=== PATIENT | male | born 1950 | race African-American/Black ===

== ENCOUNTER 2018-02-23 14:35 | Inpatient (IN) | payer MEDICARE ==
--- OUTSIDE RECORDS SUMMARY | 2018-02-23 14:36 | XMS REPORT ---
:1950 [facility] Address [address] [place] [address] Care Team Providers Name Role Phone CHRISTIANO DIEUDONNE OMAIRAMIREYA Unavailable Unavailable Problems This patient has no known problems. Allergies, Adverse Reactions, Alerts This patient has no known allergies or adverse reactions. Medications This patient has no known medications. Results Test Description Test Time Test Comments Text Results Atomic Results Result Comments (MANUAL DIFFERENTIAL) 2017-01-05 07:27:00 Test Item Value Reference Range Comments TOTAL COUNTED (BEAKER) (test iekp=1000) CBC W/PLT COUNT & AUTO [id number] 07:10:00 Test Item Value Reference Range Comments WHITE BLOOD CELL COUNT (BEAKER) (test ezmz=168) 9.9 K/ L 4.0-10.0 RED BLOOD CELL COUNT (BEAKER) (test yeqo=398) 4.91 M/ L 4.20-5.80 HEMOGLOBIN (BEAKER) (test thti=420) 16.7 GM/DL 13.0-16.8 HEMATOCRIT (BEAKER) (test kasd=608) 48.2 % 40.0-50.0 MEAN CORPUSCULAR VOLUME (BEAKER) (test wrfh=729) 98.2 fL 82.0-98.0 MEAN CORPUSCULAR HEMOGLOBIN (BEAKER) (test 33.9 pg 27.0-33.0 djqz=896) MEAN CORPUSCULAR HEMOGLOBIN CONC (BEAKER) (test 34.5 GM/DL 32.0-36.0 ozmv=380) RED CELL DISTRIBUTION WIDTH (BEAKER) (test 14.1 % 10.3-14.2 fpsf=787) PLATELET COUNT (BEAKER) (test cmyh=708) 202 K/CU MM 150-430 MEAN PLATELET VOLUME (BEAKER) (test vxox=845) 7.1 fL 6.5-10.5 NUCLEATED RED BLOOD CELLS (BEAKER) (test 0 /100 WBC 0-0 ncuj=972) NEUTROPHILS RELATIVE PERCENT (BEAKER) (test 54 % xvky=579) LYMPHOCYTES RELATIVE PERCENT (BEAKER) (test 34 % rrie=690) MONOCYTES RELATIVE PERCENT (BEAKER) (test 10 % lhca=075) EOSINOPHILS RELATIVE PERCENT (BEAKER) (test 1 % cjus=607) BASOPHILS RELATIVE PERCENT (BEAKER) (test 1 % fglr=194) NEUTROPHILS ABSOLUTE COUNT (BEAKER) (test 5.36 K/ L 1.80-8.00 flar=587) LYMPHOCYTES ABSOLUTE COUNT (BEAKER) (test 3.31 K/ L 1.48-4.50 vqkp=060) MONOCYTES ABSOLUTE COUNT (BEAKER) (test 1.00 K/ L 0.00-1.30 rene=660) EOSINOPHILS ABSOLUTE COUNT (BEAKER) (test 0.12 K/ L 0.00-0.50 ejxg=193) BASOPHILS ABSOLUTE COUNT (BEAKER) (test 0.07 K/ L 0.00-0.20 eocy=039) [id number] [id number] 06:48:00 Test Item Value Reference Range Comments TRIGLYCERIDES (BEAKER) (test uofo=555) 89 mg/dL CHOLESTEROL (BEAKER) (test ktjn=321) 158 mg/dL HDL CHOLESTEROL (BEAKER) (test oeqy=301) 40 mg/dL LDL CHOLESTEROL CALCULATED (BEAKER) (test 100 mg/dL whaj=090) Triglyceride Reference Range: Low Risk <150 Borderline 150- 199 High Risk 200-499 Very High Risk >=500Cholesterol Reference Range: Low Risk <200 Borderline 200-239 High Risk > 240HDL Cholesterol Reference Range: Low Risk >=60 High Risk <40LDL Cholesterol Reference Range: Optimal <100 Near Optimal 100-129 Borderline 130-159 High 160-189 Very High >=190BASIC METABOLIC [id number] 06:48:00 Test Item Value Reference Range Comments SODIUM (BEAKER) (test 137 meq/L 136-145 vkck=212) POTASSIUM (BEAKER) (test 3.8 meq/L 3.5-5.1 irbn=543) CHLORIDE (BEAKER) (test 107 meq/L 98-107 rbtm=598) CO2 (BEAKER) (test 23 meq/L 22-29 nykp=094) BLOOD UREA NITROGEN 21 mg/dL 7-21 (BEAKER) (test awja=040) CREATININE (BEAKER) (test 1.03 mg/dL 0.57-1.25 nzzx=808) GLUCOSE RANDOM (BEAKER) 101 mg/dL 70-105 (test vhcv=271) CALCIUM (BEAKER) (test 8.9 mg/dL 8.4-10.2 srwo=480) EGFR (BEAKER) (test 88 mL/min/1.73 sq m ESTIMATED GFR IS NOT qzyp=1086) ACCURATE CREATININE CLEARANCE IN PREDICTING GLOMERULAR FILTRATION RATE. ESTIMATED GFR IS NOT APPLICABLE FOR DIALYSIS PATIENTS. HEMOGLOBIN [id number] 07:38:00 Test Item Value Reference Range Comments HEMOGLOBIN A1C (BEAKER) (test vvto=824) 5.6 % 4.3-6.1 TSH/FREE T4 IF [id number] 04:58:00 Test Item Value Reference Range Comments THYROID STIMULATING HORMONE (BEAKER) (test 1.28 uIU/mL 0.35-4.94 vnss=255) VITAMIN B12 AND [id number] 04:58:00 Test Item Value Reference Range Comments VITAMIN B12 (BEAKER) (test llma=956) 260 pg/mL 213-816 FOLATE (BEAKER) (test vlpn=683) 13.0 ng/mL >=7.0 Effective 09/12/2014: Folate Reference Range ChangeNew: >=7.0 Previous: & gt;=[id number] 04:08:00 Test Item Value Reference Range Comments MAGNESIUM (BEAKER) (test xlqw=141) 2.0 mg/dL 1.6-2.6 BASIC METABOLIC [id number] 04:08:00 Test Item Value Reference Range Comments SODIUM (BEAKER) (test 140 meq/L 136-145 ilie=510) POTASSIUM (BEAKER) (test 4.0 meq/L 3.5-5.1 mfwe=843) CHLORIDE (BEAKER) (test 107 meq/L 98-107 hrxe=555) CO2 (BEAKER) (test 22 meq/L 22-29 wndd=547) BLOOD UREA NITROGEN 12 mg/dL 7-21 (BEAKER) (test hbno=436) CREATININE (BEAKER) (test 0.92 mg/dL 0.57-1.25 krzz=928) GLUCOSE RANDOM (BEAKER) 96 mg/dL 70-105 (test mdqt=631) CALCIUM (BEAKER) (test 9.4 mg/dL 8.4-10.2 vkjo=669) EGFR (BEAKER) (test 100 mL/min/1.73 sq m ESTIMATED GFR IS NOT iowv=9986) ACCURATE CREATININE CLEARANCE IN PREDICTING GLOMERULAR FILTRATION RATE. ESTIMATED GFR IS NOT APPLICABLE FOR DIALYSIS PATIENTS. CREATINE KINASE (CK), TOTAL AND [id number] 04:08:00 Test Item Value Reference Range Comments CREATINE KINASE TOTAL (BEAKER) (test ljls=631) 85 U/L 29-200 CREATINE KINASE-MB (BEAKER) (test nrpt=822) 0.6 ng/mL 0.0-6.6 CREATINE KINASE-MB INDEX (BEAKER) (test oqkw=500) 0.7 % Effective 09/12/2014: CK-MB Reference Range ChangeNew: 0.0-6.6 Previous: 0.0- 4.9CK-MB Reference Range:<6.7 Normal6.7-10.0 Borderline>10.0 AbnormalTROPONIN [id number] 04:07:00 Test Item Value Reference Range Comments TROPONIN I (BEAKER) (test sfmw=522) < ng/mL 0.00-0.03 Effective 09/12/2014: Reference Range ChangeNew: 0.00-0.03 Previous 0.00- 0.15Troponin I (TnI) levels must be interpreted in the context of the presenting symptoms and the clinical findings. Elevated TnI levels indicate myocardial damage, but are not specific for ischemic heart disease. Elevated TnI levels are seen in patients with other cardiac conditions (including myocarditis and congestive heartfailure), and slight TnI elevations occur in patients with other conditions, including sepsis, renalfailure, acidosis, acute neurological disease, and persistent tachyarrhythmia.PROTHROMBIN [id number] 03:45:00 Test Item Value Reference Range Comments PROTIME (BEAKER) (test ewce=442) 12.6 seconds 11.7-14.7 INR (BEAKER) (test dowp=128) 1.0 <=5.9 RECOMMENDED COUMADIN/WARFARIN INR THERAPY RANGESSTANDARD DOSE: 2.0 - 3.0 Includes: PROPHYLAXIS forvenous thrombosis, systemic embolization; TREATMENT for venous thrombosis and/or pulmonary embolus.HIGH RISK: Target INR is 2.5-3.5 for patients with mechanical heart valves.CBC W/PLT COUNT & AUTO [id number] 03:42:00 Test Item Value Reference Range Comments WHITE BLOOD CELL COUNT (BEAKER) (test gfrj=190) 9.6 K/ L 4.0-10.0 RED BLOOD CELL COUNT (BEAKER) (test bmzt=744) 4.92 M/ L 4.20-5.80 HEMOGLOBIN (BEAKER) (test vgzd=957) 16.9 GM/DL 13.0-16.8 HEMATOCRIT (BEAKER) (test nteg=454) 48.5 % 40.0-50.0 MEAN CORPUSCULAR VOLUME (BEAKER) (test dyfe=425) 98.6 fL 82.0-98.0 MEAN CORPUSCULAR HEMOGLOBIN (BEAKER) (test 34.3 pg 27.0-33.0 vlha=810) MEAN CORPUSCULAR HEMOGLOBIN CONC (BEAKER) (test 34.8 GM/DL 32.0-36.0 tfka=685) RED CELL DISTRIBUTION WIDTH (BEAKER) (test 12.8 % 10.3-14.2 lvuy=635) PLATELET COUNT (BEAKER) (test sfhd=834) 200 K/CU MM 150-430 MEAN PLATELET VOLUME (BEAKER) (test xfsn=687) 7.0 fL 6.5-10.5 NUCLEATED RED BLOOD CELLS (BEAKER) (test 0 /100 WBC 0-0 jqmh=050) NEUTROPHILS RELATIVE PERCENT (BEAKER) (test 60 % yixd=850) LYMPHOCYTES RELATIVE PERCENT (BEAKER) (test 30 % rdan=022) MONOCYTES RELATIVE PERCENT (BEAKER) (test 8 % tpfz=104) EOSINOPHILS RELATIVE PERCENT (BEAKER) (test 1 % ykbo=781) BASOPHILS RELATIVE PERCENT (BEAKER) (test 1 % sink=866) NEUTROPHILS ABSOLUTE COUNT (BEAKER) (test 5.69 K/ L 1.80-8.00 prvu=123) LYMPHOCYTES ABSOLUTE COUNT (BEAKER) (test 2.91 K/ L 1.48-4.50 dnms=425) MONOCYTES ABSOLUTE COUNT (BEAKER) (test 0.81 K/ L 0.00-1.30 vzve=648) EOSINOPHILS ABSOLUTE COUNT (BEAKER) (test 0.10 K/ L 0.00-0.50 egsw=085) BASOPHILS ABSOLUTE COUNT (BEAKER) (test 0.06 K/ L 0.00-0.20 qnyn=723) 0.00
--- OUTSIDE RECORDS SUMMARY | 2018-02-23 14:36 | XMS REPORT | Clinical Summary ---
:1950 Author Organization [facility] Address [address] [place] [address] Phone Care Team Providers Name Role Phone Unavailable Primary Care Provider Unavailable Allergies No Known Allergies Current Medications Prescription Sig. Disp. Refills Start Date End Date Status lisinopril Take 5 mg by Active (PRINIVIL,ZESTRIL) 5 mouth daily. MG tablet cloNIDine HCl Take 0.2 mg by Active (CATAPRES) 0.2 MG mouth 3 (three) tablet times daily. aspirin 81 MG chewable Take 1 tablet 30 tablet 11 01/05/2017 01/05/2018 tablet (81 mg total) by mouth daily. atorvastatin (LIPITOR) Take 1 tablet 30 tablet 11 01/05/2017 01/05/2018 40 MG tablet (40 mg total) by mouth nightly. 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
--- NOTE | 2018-02-23 15:44 | RAD REPORT ---
EXAM DESCRIPTION: RAD - Chest Single View - 02/23/2018 3:24 pm CLINICAL HISTORY: Chest pain. COMPARISON: 05/20/2017 FINDINGS: Portable technique limits examination quality. Airspace opacity in the right lower lobe is present compatible with pneumonia. A small right pleural effusion is seen. The heart is normal in size. No displaced fractures.
--- NOTE | 2018-02-23 16:04 | RAD REPORT ---
EXAM DESCRIPTION: CT - Head C Spine Cap Wo Con - 02/23/2018 3:48 pm CLINICAL HISTORY: Trauma, head and neck injury. Chest, abdomen and pelvis pain. COMPARISON: 05/20/2017 TECHNIQUE: CT head without contrast. CT cervical spine without contrast with coronal and sagittal reformatted images. CT chest, abdomen and pelvis without contrast with coronal and sagittal reformatted images of the [facility] ne. All CT scans are performed using dose optimization technique as appropriate and may include automated exposure control or mA/KV adjustment according to patient size. FINDINGS: CT HEAD WITHOUT CONTRAST: No intracranial hemorrhage, hydrocephalus or extra-axial fluid collection. Gliosis is seen in the le ft posterior cerebral artery territory compatible with subacute to chronic. Old 9 mm lacunar infarct also noted on the right. The paranasal sinuses and mastoids are clear. The calvarium is intact. CT CERVICAL SPINE WITHOUT CONTRAST: No fracture or subluxation. Moderate midcervical degenerative changes. The prevertebral soft tissues are normal in thickness. CT CHEST, ABDOMEN, PELVIS WITHOUT CONTRAST: NOTE: Lack of contrast is a significant limitation in the assessment of trauma related findings. Spec ifically, solid organ, vascular and bowel evaluation is significantly limited. Airspace opacification in the right lower lobe is present with a small right pleural effusion, likely representing pneumonia. Moderate COPD is present.No pneumothorax is seen. No evidence of intra-abdominal visceral injury, free fluid or free air is seen within the above detai led limitations. Cholelithiasis. No concerning pelvic findings. No fractures. IMPRESSION: Right lower lobe pneumonia suspected. Subacute to chronic left [employer] F[employer]OR[employer] territory infarct. Moderate midcervical degenerative change.
[2018-02-23] MEDS ORDERED: NA CHLORIDE 0.9% 1,000 ML ONE (16:16)
[2018-02-23] MEDS ORDERED: CEFTRIAXONE/SWI 1gm 1 GM/10 ML SYR ONE (16:16)
[2018-02-23] MEDS ORDERED: Levofloxacin500mg IV 500 MG/100 ML BAG IV ONE (16:16)
[2018-02-23] MEDS ORDERED: NA CHLORIDE 0.9% 500 ML ONE (16:16)
[2018-02-23 16:25] LABS: Absolute Lymphocytes (CBC) 1.4 K/uL (0.7-4.9); Absolute Monocytes 1.8 K/uL (0.1-1.3); Absolute Neutrophil 13.1 K/uL (1.8-8.0); Basophils % 0.5 % (0-1.3); Hematocrit 51.1 % (39.6-49.0); Lymphocytes % 8.4 % (15.3-44.8); MCH 32.8 pg (27.0-35.0); MPV 8.5 fL (7.6-11.3); Monocytes % 10.9 % (3.3-12.3); RBC Red Blood Cell Count 5.27 M/uL (4.33-5.43)
--- NOTE | 2018-02-23 16:28 | EDPHYS ---
Physician Documentation [facility] Name: Srinivas Foy Age: 67 yrs Sex: Male : 1950 Arrival Date: 02/23/2018 Time: 14:36 Bed 13 Private MD: Linden Landis H ED Physician Damir Rick HPI: 02/23 15:12 This 67 yrs old Black Male presents to ER via Wheelchair with complaints of Vision cali Problem. 15:12 This 67 yrs old Black Male presents to ER via Wheelchair with complaints of Vision cali Problem. 15:12 The patient presents with abdominal pain in the epigastric area, in the upper abdomen, cali in the lower abdomen. Onset: The symptoms/episode began/occurred 3 day(s) ago. alert and oriented x 2. The patient presents with disorientation, to time. Onset: The symptoms/episode began/occurred at an unknown time. Possible causes: unknown. Associated signs and symptoms: The patient has no apparent associated signs or symptoms. Associated signs and symptoms: none. Historical: - Allergies: 14:58 NKA; ch - Home Meds: 14:58 unknown [Active]; ch 15:08 clonidine HCl 0.2 mg Oral tab 1 tab Q8H [Active]; gabapentin 300 mg Oral cap 1 cap rb1 twice a day [Active]; lisinopril 10 mg oral tab 1 tab once daily [Active]; Shanti Aspirin oral 81 mg oral 1 tab once daily [Active]; simvastatin 40 mg Oral tab 1 tab once daily [Active]; - PMHx: 14:58 CVA; Hypertension; unable to verify; ch - PSHx: 14:58 Unable to obtain; ch - Immunization history:: Adult Immunizations unknown. - Social history:: Smoking status: Patient uses tobacco products, smokes one pack cigarettes per day. - Family history:: not pertinent. ROS: 15:12 Constitutional: Negative for fever, chills, and weight loss, Eyes: Negative for injury, cali pain, redness, and discharge, ENT: Negative for injury, pain, and discharge, Neck: Negative for injury, pain, and swelling, Cardiovascular: Negative for chest pain, palpitations, and edema, Respiratory: Negative for shortness of breath, cough, wheezing, and pleuritic chest pain, Back: Negative for injury and pain, : Negative for injury, bleeding, discharge, and swelling, MS/Extremity: Negative for injury and deformity, Skin: Negative for injury, rash, and discoloration, Psych: Negative for depression, anxiety, suicide ideation, homicidal ideation, and hallucinations, Allergy/Immunology: Negative for hives, rash, and allergies, Endocrine: Negative for neck swelling, polydipsia, polyuria, polyphagia, and marked weight changes, Hematologic/Lymphatic: Negative for swollen nodes, abnormal bleeding, and unusual bruising. 15:12 Abdomen/GI: Positive for abdominal pain, of the right upper quadrant, left upper quadrant, right lower quadrant and left lower quadrant. Exam: 15:12 Constitutional: This is a well developed, well nourished patient who is awake, alert, cali and in no acute distress. Head/Face: Normocephalic, atraumatic. Eyes: Pupils equal round and reactive to light, extra-ocular motions intact. Lids and lashes normal. Conjunctiva and sclera are non-icteric and not injected. Cornea within normal limits. Periorbital areas with no swelling, redness, or edema. ENT: Nares patent. No nasal discharge, no septal abnormalities noted. Tympanic membranes are normal and external auditory canals are clear. Oropharynx with no redness, swelling, or masses, exudates, or evidence of obstruction, uvula midline. Mucous membranes moist. Neck: Trachea midline, no thyromegaly or masses palpated, and no cervical lymphadenopathy. Supple, full range of motion without nuchal rigidity, or vertebral point tenderness. No Meningismus. Chest/axilla: Normal chest wall appearance and motion. Nontender with no deformity. No lesions are appreciated. Cardiovascular: Regular rate and rhythm with a normal S1 and S2. No gallops, murmurs, or rubs. Normal PMI, no JVD. No pulse deficits. Respiratory: Lungs have equal breath sounds bilaterally, clear to auscultation and percussion. No rales, rhonchi or wheezes noted. No increased work of breathing, no retractions or nasal flaring. Back: No spinal tenderness. No costovertebral tenderness. Full range of motion. Skin: Warm, dry with normal turgor. Normal color with no rashes, no lesions, and no evidence of cellulitis. MS/ Extremity: Pulses equal, no cyanosis. Neurovascular intact. Full, normal range of motion. Psych: Awake, alert, with orientation to person, place and time. Behavior, mood, and affect are within normal limits. 15:12 Abdomen/GI: Inspection: abdomen appears normal, Bowel sounds: normal, Palpation: mild abdominal tenderness, moderate abdominal tenderness, in the right upper quadrant, left upper quadrant, right lower quadrant and left lower quadrant, Liver: no appreciated palpable abnormalities, Hernia: not appreciated. Vital Signs: 14:58 BP 146 / 78; Pulse 112; Resp 18; Temp 98.4(O); Pulse Ox 94% on R/A; Weight 77.11 kg; ch Height 5 ft. 7 in. (170.18 cm); Pain 0/10; 16:24 BP 182 / 98; Pulse 100; Resp 28; Pulse Ox 93% on R/A; mh5 17:37 BP 169 / 97; Pulse 104; Resp 29; Pulse Ox 100% on R/A; mh5 19:45 BP 179 / 97; Pulse 93; Resp 19; Pulse Ox 100% on 3 lpm NC; bs1 20:42 BP 168 / 72 (man/); Pulse 95; Resp 19; Temp 98.5(O); Pulse Ox 99% on 3 lpm NC; bs1 14:58 Body Mass Index 26.63 (77.11 kg, 170.18 cm) ch MDM: 14:59 Patient medically screened. [facility] 15:15 Data reviewed: vital signs, nurses notes, lab test result(s), EKG, radiologic studies, [facility] CT scan, plain films. 02/23 15:12 Order name: Basic Metabolic Panel; Complete Time: 17:36 [facility] 02/23 15:12 Order name: BNP; Complete Time: 17:36 [facility] 02/23 15:12 Order name: CBC with Diff; Complete Time: 17:04 [facility] 02/23 15:12 Order name: Ckmb; Complete Time: 17:36 [facility] 02/23 15:12 Order name: CPK; Complete Time: 17:36 [facility] 02/23 15:12 Order name: LFT's; Complete Time: 17:36 [facility] 02/23 15:12 Order name: Magnesium; Complete Time: 17:36 [facility] 02/23 15:12 Order name: PT-INR; Complete Time: 17:23 [facility] 02/23 15:12 Order name: Ptt, Activated; Complete Time: 17:23 [facility] 02/23 15:12 Order name: Troponin (emerg Dept Use Only); Complete Time: 17:36 [facility] 02/23 15:12 Order name: Lipase; Complete Time: 17:36 [facility] 02/23 15:12 Order name: Urine Culture [facility] 02/23 16:13 Order name: Blood Culture Adult (2) [facility] 02/23 16:34 Order name: CBC Smear Scan; Complete Time: 17:04 [facility] 02/23 15:12 Order name: XRAY Chest (1 view); Complete Time: 16:12 [facility] 02/23 15:12 Order name: EKG; Complete Time: 15:13 [facility] 02/23 15:12 Order name: Cardiac monitoring; Complete Time: 16:13 [facility] 02/23 15:12 Order name: EKG - Nurse/Tech; Complete Time: 15:26 [facility] 02/23 15:12 Order name: IV Saline Lock; Complete Time: 16:13 [facility] 02/23 15:12 Order name: Labs collected and sent; Complete Time: 16:13 [facility] 02/23 15:12 Order name: O2 Per Protocol; Complete Time: 16:13 [facility] 02/23 15:12 Order name: CT Traumagram (Head C Spine CAP wo con); Complete Time: 16:12 [facility] 02/23 16:34 Order name: CONS Physician Consult [facility] 02/23 17:13 Order name: Urine Dipstick--Ancillary (enter results) 02/23 17:52 Order name: Urine Dipstick-Ancillary; Complete Time: 18:02 [facility] 02/23 15:12 Order name: O2 Sat Monitoring; Complete Time: 16:13 [facility] 02/23 15:12 Order name: Urine Dipstick-Ancillary (obtain specimen); Complete Time: 19:37 [facility] Administered Medications: 16:15 Drug: NS 0.9% 500 ml Route: IV; Rate: bolus; Site: left antecubital; rb1 17:42 Follow up: IV Status: Completed infusion rb1 16:15 Drug: Rocephin - (cefTRIAXone) 1 grams Route: IVPB; Infused Over: 30 mins; Site: left rb1 antecubital; 16:29 Follow up: Response: No adverse reaction; IV Status: Completed infusion rb1 17:20 Drug: levofloxacin 500 mg Volume: 100 ml; Route: IVPB; Infused Over: 60 mins; Site: rb1 left antecubital; 18:27 Follow up: Response: No adverse reaction; IV Status: Completed infusion rb1 17:42 Drug: NS 0.9% 1000 ml Route: IV; Rate: 125 ml/hr; Site: left antecubital; rb1 20:48 Follow up: IV Status: Infusion continued upon admission bs1 18:28 Drug: Potassium Chloride 20 mEq Route: IV; Rate: per protocol; Site: left antecubital; rb1 20:48 Follow up: IV Status: Infusion continued upon admission bs1 Disposition: 02/23/18 16:27 Hospitalization ordered by Augustin Chavez for Inpatient Admission. Preliminary diagnosis are Pneumonia due to other specified bacteria, Dementia in other diseases classified elsewhere, Hypoxemia, Elevated white blood cell count, Essential (primary) hypertension, Hypokalemia, Cystitis. - Bed requested for Telemetry/MedSurg (Inpatient). - Status is Inpatient Admission. bs1 - Condition is Stable. - Problem is new. - Symptoms have improved. UTI on Admission? Yes Signatures: Dispatcher [employer] EDTawana Olson, RN RN Carmen Gomes RN RN dw Anderson, Corey, MD MD cha Barber, Rebecca, YARITZA RN rb1 Niesha Laura RN RN bs1
--- NOTE | 2018-02-23 16:28 | ER ---
Nurse's Notes [facility] Name: Srinivas Foy Age: 67 yrs Sex: Male : 1950 Arrival Date: 02/23/2018 Time: 14:36 Bed 13 Private MD: Linden Landis H Diagnosis: Pneumonia due to other specified bacteria;Dementia in other diseases classified elsewhere;Hypoxemia;Elevated white blood cell count;Essential (primary) hypertension;Hypokalemia;Cystitis Presentation: 02/23 14:53 Presenting complaint: Patient states: I know something is wrong with me, I just don't ch know what. My home health nurse told me to come. I cannot see out of my L eye since I had a stroke two or three or four weeks ago. when I take a deep breath my chest hurts. pt is oriented to person and place only. Transition of care: patient was not received from another setting of care. Onset of symptoms is unknown. Initial Sepsis Screen: Does the patient meet any 2 criteria? Altered Mental Status. HR > 90 bpm. Does the patient have a suspected source of infection? No. Patient's initial sepsis screen is negative. Care prior to arrival: None. 14:53 Method Of Arrival: Wheelchair 14:53 Acuity: RULA 2 18:37 Note pt states he thinks it is 2006. pt was witnessed by volunteer and hotel front desk agent staff ch walking in by himself. pt states his family member dropped him off. pt does not know the name of the family member. no family was witnessed at registration or by me. pt states he does not know why he is here. pt states he thinks he came from home. Triage Assessment: 14:58 General: Appears in no apparent distress. comfortable, Behavior is cooperative, ch appropriate for age. Neuro: Level of Consciousness is awake, alert, obeys commands, confused, Oriented to person, place, Marble Cleaner are equal bilaterally Moves all extremities. Weakness. Historical: - Allergies: 14:58 NKA; ch - Home Meds: 14:58 unknown [Active]; ch 15:08 clonidine HCl 0.2 mg Oral tab 1 tab Q8H [Active]; gabapentin 300 mg Oral cap 1 cap rb1 twice a day [Active]; lisinopril 10 mg oral tab 1 tab once daily [Active]; Shanti Aspirin oral 81 mg oral 1 tab once daily [Active]; simvastatin 40 mg Oral tab 1 tab once daily [Active]; - PMHx: 14:58 CVA; Hypertension; unable to verify; ch - PSHx: 14:58 Unable to obtain; ch - Immunization history:: Adult Immunizations unknown. - Social history:: Smoking status: Patient uses tobacco products, smokes one pack cigarettes per day. - Family history:: not pertinent. Screenin:08 Abuse screen: Denies threats or abuse. Nutritional screening: No deficits noted. rb1 Tuberculosis screening: No symptoms or risk factors identified. Fall Risk None identified. Assessment: 15:08 General: Appears in no apparent distress. comfortable, Behavior is calm, cooperative, rb1 Denies fever. Pain: Complains of pain in left upper quadrant Pain currently is 5 out of 10 on a pain scale. Pain began 2-3 days ago. Neuro: Level of Consciousness is awake, obeys commands, confused, pt. thinks it is 2007. Is able to tell me his name and date of and where he is.. Cardiovascular: Capillary refill < 3 seconds is brisk in bilateral fingers. Respiratory: Airway is patent Respiratory effort is even, unlabored, Respiratory pattern is regular, symmetrical. GI: No signs and/or symptoms were reported involving the gastrointestinal system. : No signs and/or symptoms were reported regarding the genitourinary system. Derm: Skin is dry, Skin is normal, Skin temperature is warm. Musculoskeletal: Range of motion: intact in all extremities. 16:15 Reassessment: Patient appears in no apparent distress at this time. No changes from rb1 previously documented assessment. Rocephin was administered prior to blood cultures being drawn. 16:40 Reassessment: Pt. O2 sat was 94% on RA, administered O2 2 L NC, O2 sat went up to 98%. rb1 16:47 Reassessment: YARITZA Morales called to have lab come to draw the blood cultures. rb1 17:00 Reassessment: Patient and/or family updated on plan of care and expected duration. Pain rb1 level reassessed. Patient is alert, oriented x 3, equal unlabored respirations, skin warm/dry/pink. 18:00 Reassessment: Patient appears in no apparent distress at this time. No changes from rb1 previously documented assessment. pt. does not want to be admitted. provider notified. 19:15 Reassessment: Report received from YARITZA Márquez, patient confused. Alert to self. No bs1 distress noted at this time. 19:15 Neuro: Level of Consciousness is awake, confused. Cardiovascular: Denies chest pain, bs1 shortness of breath, syncope, Capillary refill < 3 seconds. Respiratory: Airway is patent. GI: No signs and/or symptoms were reported involving the gastrointestinal system. Derm: Skin is dry. Musculoskeletal: Range of motion: intact in all extremities. Vital Signs: 14:58 BP 146 / 78; Pulse 112; Resp 18; Temp 98.4(O); Pulse Ox 94% on R/A; Weight 77.11 kg; ch Height 5 ft. 7 in. (170.18 cm); Pain 0/10; 16:24 BP 182 / 98; Pulse 100; Resp 28; Pulse Ox 93% on R/A; mh5 17:37 BP 169 / 97; Pulse 104; Resp 29; Pulse Ox 100% on R/A; mh5 19:45 BP 179 / 97; Pulse 93; Resp 19; Pulse Ox 100% on 3 lpm NC; bs1 20:42 BP 168 / 72 (man/); Pulse 95; Resp 19; Temp 98.5(O); Pulse Ox 99% on 3 lpm NC; bs1 14:58 Body Mass Index 26.63 (77.11 kg, 170.18 cm) ED Course: 14:36 Patient arrived in ED. mr 14:37 Linden Landis DO is Private Physician. mr 14:57 Triage completed. 14:58 Arm band placed on left wrist. Patient placed in an exam room. 14:59 Damir Rick MD is Attending Physician. [facility] 15:08 Patient has correct armband on for positive identification. Bed in low position. Call rb1 light in reach. Side rails up X2. leather parts matcher on. Pulse ox on. NIBP on. Warm blanket given. 15:22 X-ray completed. Portable x-ray completed in exam room. Patient tolerated procedure kc2 well. 15:23 XRAY Chest (1 view) In Process Unspecified. EDMS 15:26 Yulisa August, RN is Primary Nurse. rb1 15:29 EKG done, by medical imaging technician. reviewed by Damir Rick MD. dt2 15:[address] via stretcher. nj 15:43 CT completed. Patient tolerated procedure well. Patient moved back from CT. nj 15:48 CT Traumagram (Head C Spine CAP wo con) In Process Unspecified. EDMS 16:00 Inserted saline lock: 22 gauge in left antecubital area, using aseptic technique. Blood rb1 collected. 16:25 Augustin Chavez DO is Hospitalizing Provider. [facility] 19:00 Report given to YARITZA Scherer. rb1 20:40 No provider procedures requiring assistance completed. Patient admitted, IV remains in bs1 place. intact. Administered Medications: 16:15 Drug: NS 0.9% 500 ml Route: IV; Rate: bolus; Site: left antecubital; rb1 17:42 Follow up: IV Status: Completed infusion rb1 16:15 Drug: Rocephin - (cefTRIAXone) 1 grams Route: IVPB; Infused Over: 30 mins; Site: left rb1 antecubital; 16:29 Follow up: Response: No adverse reaction; IV Status: Completed infusion rb1 17:20 Drug: levofloxacin 500 mg Volume: 100 ml; Route: IVPB; Infused Over: 60 mins; Site: rb1 left antecubital; 18:27 Follow up: Response: No adverse reaction; IV Status: Completed infusion rb1 17:42 Drug: NS 0.9% 1000 ml Route: IV; Rate: 125 ml/hr; Site: left antecubital; rb1 20:48 Follow up: IV Status: Infusion continued upon admission bs1 18:28 Drug: Potassium Chloride 20 mEq Route: IV; Rate: per protocol; Site: left antecubital; rb1 20:48 Follow up: IV Status: Infusion continued upon admission bs1 Outcome: 16:27 Decision to Hospitalize by Provider. [facility] 20:40 Admitted to Tele accompanied by tech, via stretcher, room 425, with oxygen, with chart, bs1 Report called to YARITZA Romero 20:40 Condition: stable 20:40 Instructed on the need for admit, Demonstrated understanding of instructions. 20:45 Patient left the ED. bs1 Signatures: Dispatcher [employer] EDMS Tawana Hameed RN RN ch Anderson, Corey, MD MD cha Rivera, Maria mr Barber, Rebecca, YARITZA RN Jovita Mercer Nathan nj Martinez, Maria Niesha Mayo RN RN bs1 Opal Harkins2 Corrections: (The following items were deleted from the chart) 16:48 16:15 Reassessment: Rocephin was administered prior to blood cultures being drawn. rb1 rb1 17:30 16:15 Rocephin - (cefTRIAXone) 1 grams IVPB in left antecubital over 30 mins rb1 rb1 17:30 17:29 Response: No adverse reaction; IV Status: Completed infusion rb1 rb1
[2018-02-23 17:03] LABS: Blood Morphology Comment NOT SEEN (NOT SEEN); Platelet Estimate ADEQ; Urine White Blood Cell Casts OK
[2018-02-23 17:17] LABS: Protime INR 1.05
[2018-02-23 17:25] LABS: Bicarbonate 24 mEq/L (21-31); Glucose Level 89 mg/dL (65-120); Lipase 21 U/L (22-51); Potassium 3.5 mEq/L (3.6-5.0); Sodium Level 132 mEq/L (135-145)
[2018-02-23 17:31] LABS: ALT/SGPT 17 IU/L (10-60); AST/SGOT 34 IU/L (10-42); Albumin 3.9 g/dL (3.2-5.5); Alkaline Phosphatase 48 IU/L (42-121); BUN Blood Urea Nitrogen 21 mg/dL (6-20); Bilirubin Direct 0.5 mg/dL (0-0.2); Bilirubin Total 1.4 mg/dL (0.3-1.2); Creatine Phosphokinase 321 IU/L (22-269); Magnesium 2.1 mg/dL (1.8-2.5); Protein, Total 8.6 g/dL (6.0-8.3)
[2018-02-23 17:33] LABS: CKMB Creatine Kinase MB 1.8 ng/ml (0.3-4.0)
[2018-02-23 17:52] LABS: Urine Blood NEGATIVE (NEG); Urine Glucose NEGATIVE (NEG); Urine Protein 2+ (NEG); Urine Specific Gravity 1.025 (1.005-1.030); Urine pH 5.5 (5.0-7.0)
[2018-02-23] MEDS ORDERED: KCL 20 MEQ/100 mL IVPB 20 MEQ/100 ML BAG IV ONE (18:35)
--- NOTE | 2018-02-23 18:41 | P.HP ---
Certification for Inpatient With expected LOS: >2 Midnights Patient will require the following post-hospital care: None Practitioner: I am a practitioner with admitting privileges, knowledge of patient current condition, hospital course, and medical plan of care. Services: Services provided to patient in accordance with Admission requirements found in Title 42 Section 412.3 of the Code of Federal Regulations Patient History Date of Service: 02/23/18 Reason for admission: "i dont feel right" History of Present Illness: 67 year old male with history of hypertension, CVA in the past who presented with complaint of not feeling right.Per patient he has been was at his usual state of health until this am when he woke up feeling very weak and felt unwell.He asked his friend to bring him to the hospital to be seen.He denies any fever, cough, chest pain, SOB or palpitation.No URI symptoms. on arrival he had CXR done which was suggestive of pneumonia Allergies No Known Allergies Allergy (Unverified 01/03/17 20:33) Home Medications: Aspirin [Durlaza] 162.5 mg PO DAILY #30 cap.er.24h 05/06/17 Lisinopril 10 mg PO DAILY 05/06/17 Simvastatin 1 tab PO BEDTIME 05/06/17 - Past Medical/Surgical History Diabetic: No -: Stroke-2016 -: Hypertension - Family History Father -: Other (see notes) Notes: of old age Mother -: Hypertension - Social History Alcohol use: No CD- Drugs: No Caffeine use: Yes Review of Systems 10-point ROS is otherwise unremarkable General: Weakness Eyes: Unremarkable ENT: Unremarkable Respiratory: Unremarkable Cardiovascular: Unremarkable Gastrointestinal: Vomiting, Abdominal Pain, Distention, Unremarkable Genitourinary: Unremarkable Musculoskeletal: Unremarkable Neurological: Weakness Physical Examination - Physical Exam General: Alert, In no apparent distress, Oriented x3 HEENT: Atraumatic, Normocephalic Respiratory: Clear to auscultation bilaterally, Normal air movement Cardiovascular: No edema, Normal pulses, Regular rate/rhythm, Normal S1 S2 Gastrointestinal: Normal bowel sounds, Soft and benign, W/out hepatosplenomegaly , No ascites, No tenderness, No masses, No rebound, No guarding Musculoskeletal: No swelling, No contractures, No erythema, No warmth Neurological: Normal speech, Normal strength at 5/5 x4 extr, Normal tone, Sensation intact - Studies Laboratory Data (last 24 hrs) 02/23/18 16:00: WBC 16.3 H, Hgb 17.3, Hct 51.1 H, Plt Count 245 Assessment and Plan - Problems (Diagnosis) (1) Community acquired pneumonia Current Visit: Yes Status: Acute Plan: patient with weakness, leukocytosis and chest xray suggestive of pneumonia' cultures sent\\ start ceftrriaxone and azithromycin supportive care (2) Essential hypertension Current Visit: No Status: Chronic Plan: restart home medications Discharge Plan: Home Plan to discharge in: Greater than 2 days - Advance Directives Does patient have a Living Will: No Does patient have a Durable POA for Healthcare: No - Code Status/Comfort Care Code Status Assessed: Yes Code Status: Full Code Physician Review: Patient Assessed, Agree with Above Assessment and Plan Time Spent Managing Pts Care (In Minutes): 50
--- NOTE | 2018-02-23 22:36 | EKG ---
Test Date: 2018-02-23 Test Time: 15:03:50 Outside Production Inspector: BISHNU MEASUREMENT RESULTS: Intervals: Rate: 104 CT: 122 QRSD: 80 QT: 340 QTc: 447 [place]: P: 63 CT: 122 QRS: 29 T: 47 INTERPRETIVE STATEMENTS: Sinus tachycardia Cannot rule out Anterior infarct, age undetermined Abnormal ECG Compared to ECG 05/20/2017 12:13:17 Myocardial infarct finding now present Sinus rhythm no longer present ST (T wave) deviation no longer present Electronically Signed On 02-23-18 22:36:00 CDT by Haseeb Dougals
[2018-02-24] MEDS ORDERED: ACETAMINOPHEN 500 MG TAB PO PRN (00:48)
[2018-02-24] MEDS ORDERED: MAGNESIUM HYDROXIDE 8% 30 ML PO PRN (00:48)
[2018-02-24] MEDS ORDERED: ONDANSETRON 4 MG/2 ML VIAL IV PRN (00:48)
[2018-02-24] MEDS: HYDRALAZINE HCL 20 MG/ML VIAL IV PRN ×3 (01:26→20:51)
[2018-02-24] MEDS ORDERED: CEFTRIAXONE 1 GM/NS 50 ML 1 GM/50 ML BAG IV SCH (04:00)
[2018-02-24] MEDS ORDERED: CEFTRIAXONE/SWI 1gm 1 GM/10 ML SYR ONE (05:40)
[2018-02-24 06:31] LABS: Absolute Lymphocytes (CBC) 1.5 K/uL (0.7-4.9); Absolute Monocytes 1.4 K/uL (0.1-1.3); Basophils % 0.4 % (0-1.3); Eosinophils % 0.2 % (0-4.4); Hematocrit 46.2 % (39.6-49.0); Lymphocytes % 11.4 % (15.3-44.8); MCV 96.6 fL (80-100); MPV 8.3 fL (7.6-11.3); Monocytes % 10.5 % (3.3-12.3); RBC Red Blood Cell Count 4.79 M/uL (4.33-5.43)
[2018-02-24 07:35] LABS: BUN Blood Urea Nitrogen 16 mg/dL (6-20); Bicarbonate 23 mEq/L (21-31); Glucose Level 105 mg/dL (65-120); HDL Cholesterol 37 mg/dL (27-67); LDL Cholesterol, Calculated 116 (<130); Potassium 3.6 mEq/L (3.6-5.0); Sodium Level 135 mEq/L (135-145); Thyroid Stimulating Hormone 1.44 uIU/mL (0.34-5.60)
[2018-02-24] MEDS ORDERED: PNEUMOCOCCAL VACCINE 0.5 ML IMVAC ONE (08:00)
[2018-02-24] MEDS ORDERED: AZITHROMYCIN IV 500 MG in NA CHLORIDE 0.9% 250 ML IVPB SCH (09:00)
[2018-02-24] MEDS: ENOXAPARIN 40 MG/0.4 ML SQ SCH (10:00)
[2018-02-24] MEDS: PANTOPRAZOLE 40MG TABLET PO SCH (15:38)
[2018-02-24] MEDS ORDERED: GUAIFENESIN/CODEINE 5ML UCUP PO PRN (15:54)
--- NOTE | 2018-02-24 17:32 | P.PN ---
Subjective Date of Service: 02/24/18 Chief Complaint: "i dont feel right" Subjective: Other (complaiing of dysphagia) Review of Systems 10-point ROS is otherwise unremarkable Physical Examination - Vital Signs Temperature: 99.2 F Blood Pressure: 152/86 Pulse: 106 Respirations: 16 Pulse Ox (%): 93 - Physical Exam General: Alert, In no apparent distress, Oriented x3 HEENT: Atraumatic, Normocephalic, PERRLA Neck: Supple, JVD not distended, No Thyromegaly, No LAD Respiratory: Clear to auscultation bilaterally, Normal air movement Cardiovascular: No edema, Normal pulses, Regular rate/rhythm, Normal S1 S2, Abnormal S3, No gallops, No rubs, No murmurs Gastrointestinal: Normal bowel sounds, Soft and benign, Non-distended, W/out hepatosplenomegaly, No ascites, No tenderness, No masses Neurological: Normal speech, Normal strength at 5/5 x4 extr, Normal tone Assessment And Plan - Current Problems (Diagnosis) (1) Community acquired pneumonia Onset Date: 02/24/18 Current Visit: Yes Status: Acute Plan: will switch to levaquine supportive care (2) Essential hypertension Onset Date: 02/24/18 Current Visit: Yes Status: Chronic Plan: restart home medications adjust medications (3) Dysphagia Current Visit: Yes Status: Acute Plan: check cardiac enzaymes obtain barium swallow start pantoprazole Physician Review: Patient Assessed, Agree with Above Assessment and Plan
[2018-02-24] MEDS ORDERED: CEFTRIAXONE/SWI 1gm 1 GM/10 ML SYR IV SCH (18:00)
[2018-02-24] MEDS: GABAPENTIN 300 MG CAP PO SCH (20:51)
[2018-02-24] MEDS ORDERED: ATORVASTATIN 10 MG TAB PO SCH (21:00)
[2018-02-24] MEDS ORDERED: HOME MED 1 EA UNK (Simvastatin [Simvastatin] 1 TAB) PO SCH (21:00)
[2018-02-24] MEDS ORDERED: HOME MED 1 EA UNK (Gabapentin [Gralise] 300 MG) PO SCH (21:00)
--- NOTE | 2018-02-25 05:25 | CON ---
Reason For Consultation: Consultation called because of altered mental status. History Of Present Illness: Mr. Foy is a 67-year-old patient, who comes in to [facility] with diffuse weakness, however, more on the right upper and lower extremity. From chart review within the cage, it appears that the patient on his arrival did not clearly articulate w hy he came into the hospital, but did say that there was some chest discomfort when he was breathing. In addition, the patient also noted there was a stroke about 3 or 4 weeks ago, where he had problem s seeing out of his left eye. As per hospitalist, his blood work revealed an elevated white blood ce ll count of 16.3 with 80% neutrophils and his urinalysis indicated positive nitrites, 1+ ketone, and 2+ blood with esterase is negative. He was admitted with a urinary tract infection and the possibili ty of involvement of the blood. He did have blood cultures done, which showed no growth and urine cu ltures showed no growth as well. He did receive levofloxacin 750 mg p.o. daily along with a head CT scan which was unremarkable. He did receive an aspirin as well for the possibility of a stroke. Hea d and brain MRI pending. Since his admission, the patient says his symptoms have not changed and at the time of my evaluation, there is no clear evidence of an asymmetry of movement of the upper or lower extremities and the pat ient's face is symmetric. Past Medical History: Includes a stroke, hypertension. Allergies: NO KNOWN DRUG ALLERGIES. Medications: Clonidine 0.2 mg daily, gabapentin 300 mg twice daily, lisinopril 10 mg daily, aspirin 81 mg daily, simvastatin 40 mg daily. Family History: Noncontributory. Social History: Smokes 1 pack of cigarettes daily. No alcohol use. Review of Systems: No recent fevers, chills, nausea, vomiting, or myalgias. Physical Examination: Vital Signs: Blood pressure 152/86, pulse of 106, respiratory rate 16, temperature 99.2, oxygen satu ration 90% on room air. Weight 162 pounds. Height 5 feet 7 inches. General: Mr. Foy is lying comfortably in bed, in no acute distress. He is normocephalic and atra umatic. His sclerae are anicteric. Oropharynx is pink and moist. Neck: Supple. Chest: Clear. Heart: Regular. Neurological: He is alert and oriented to person, place, situation, actually follows all commands ap propriately. He actually did not know the exact date, but he was otherwise fully oriented. Cranial nerves: He has no focal deficits observed on through . Motor examination despite reported weakn ess on the right. The patient actually did not show any weakness from the right upper extremity, pro ximally, and distally, in the lower extremity, as well as proximally and distally on both sides. No focal weakness noted. He does have a stocking-glove loss to light touch and temperature. His coordi nated movements that are intact in the upper and lower extremity. The patient will be ambulated with physical therapy. Laboratory Studies: Labs have been reviewed. His electrocardiogram shows sinus tachycardia, cannot rule out anterior infarct. Please note that review of the chart from January 13, did indicate that t he patient had brain MRI which showed a large old stroke in the left occipital lobe and posterior lef t temporal lobe with moderate atrophy and chronic ischemic changes noted. 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 There is oc clusion of the left posterior severe artery as a conclusion of that absence. Assessment: Mr. Foy is a 67-year-old patient with a chronic stroke involving his left posterior c irculation which would produce a right homonymous hemianopsia. Please note on his examination, he di d have a significant visual deficits of the right visual field and his visual brewster were not intact to confrontation. He did not have evidence of an acute stroke at that point. He does have evidence of urinary tract infection on urinalysis. However, the cultures were negative. His blood work did i ndicate an elevated white blood cell count with neutrophil predominance suggestive of a possible infe ction there. His chest x-ray did show a right lower lobe opacification compatible with pneumonia and a small right pleural effusion. It is likely that the patient's confusion or potential worsening ri ght-sided symptoms may be related to his ongoing pneumonia with elevated white blood cell count. It is unlikely that the patient has had a new stroke. Plan: Should continue with the aspirin. Also, continue with DVT prophylaxis. Continue with high do se statin and the patient should work with Physical Therapy to help him recover his coordination and balance. He may be followed up in Dr. Machado's clinic 1 month after discharge. PEDRO Voice ID: [id number] Report ID: [id number]
[2018-02-25] MEDS: PANTOPRAZOLE 40MG TABLET PO SCH (05:59)
[2018-02-25] MEDS: GABAPENTIN 300 MG CAP PO SCH (08:35)
[2018-02-25] MEDS: levoFLOXacin 750 MG TAB PO SCH ×2 (08:35→09:00)
[2018-02-25] MEDS ORDERED: ALBUTEROL 2.5 MG/3 ML NEB SOL NEB PRN (08:48)
[2018-02-25] MEDS ORDERED: IPRATROPIUM BROM 0.5MG/2.5ML NEB PRN (08:48)
[2018-02-25] MEDS ORDERED: ASPIRIN EC 81 MG TAB PO SCH (09:00)
[2018-02-25] MEDS ORDERED: LISINOPRIL 10 MG TAB PO SCH (09:00)
[2018-02-25] MEDS: ENOXAPARIN 40 MG/0.4 ML SQ SCH (10:06)
--- NOTE | 2018-02-25 14:10 | RAD REPORT ---
EXAM DESCRIPTION: RAD - Barium Swallow Modified - 02/25/2018 1:56 pm CLINICAL HISTORY: Coughing, possible aspiration COMPARISON: None. TECHNIQUE: The patient was given liquid, semi-solid and solid forms of barium. Lateral view fluorosc opic imaging was performed in conjunction with [facility]. FINDINGS: Swallow reflex was somewhat delayed. No aspiration or laryngeal penetration. There is extr insic impression on the cervical esophagus from C4-C6 endplate spurring. IMPRESSION: No aspiration or laryngeal penetration. Findings are further detailed above and on speech pathology report.
--- NOTE | 2018-02-25 14:44 | P.DS ---
Admission Date: 02/23/18 Discharge Date: 02/25/18 Disposition: DC HOME/HOME HEALTH CARE Discharge Condition: GOOD Reason for Admission: "i dont feel right" - Problems (1) Community acquired pneumonia Onset Date: 02/24/18 Current Visit: Yes Status: Acute (2) Essential hypertension Onset Date: 02/24/18 Current Visit: Yes Status: Chronic (3) Dysphagia Current Visit: Yes Status: Acute Brief History of Present Illness: 67 year old male with history of hypertension, CVA in the past who presented with complaint of not feeling right.Per patient he has been was at his usual state of health until this am when he woke up feeling very weak and felt unwell.He asked his friend to bring him to the hospital to be seen.He denies any fever, cough, chest pain, SOB or palpitation.No URI symptoms. on arrival he had CXR done which was suggestive of pneumonia Hospital Course: He was admitted to the medical floor.Started on IV antibiotics for his pneumonia.His mental status remained at [facility].He was also seen by PT.He remained stable with an improvement in his symptoms and was discharged home with home health/PT and to follow up with his PCP. Vital Signs/Physical Exam: Temp Pulse Resp BP Pulse Ox 98.3 F 94 H 18 152/78 H 90 L 02/25/18 08:00 02/25/18 08:35 02/25/18 08:00 02/25/18 08:35 02/25/18 08:00 General: Alert, In no apparent distress, Oriented x3 HEENT: Atraumatic, Normocephalic, PERRLA Neck: Supple, JVD not distended, No Thyromegaly, No LAD Respiratory: Clear to auscultation bilaterally, Normal air movement Cardiovascular: No edema, Normal pulses, Regular rate/rhythm, Normal S1 S2, No gallops, No rubs, No murmurs Gastrointestinal: Normal bowel sounds, Soft and benign, Non-distended, W/out hepatosplenomegaly, No ascites, No tenderness, No masses, No rebound, No guarding Musculoskeletal: No clubbing, No swelling, No erythema, No tenderness, No warmth Neurological: Normal tone, Sensation intact, Cranial nerves 3-12 intact Laboratory Data at Discharge: WBC 12.9 K/uL (4.3-10.9) H D 02/24/18 05:56 Hgb 15.8 g/dL (13.6-17.9) 02/24/18 05:56 Hct 46.2 % (39.6-49.0) 02/24/18 05:56 Plt Count 273 K/uL (152-406) 02/24/18 05:56 PT 12.4 SECONDS (9.5-12.5) 02/23/18 16:50 INR 1.05 02/23/18 16:50 APTT 25.4 SECONDS (24.3-36.9) 02/23/18 16:50 Sodium 135 mEq/L (135-145) 02/24/18 05:56 Potassium 3.6 mEq/L (3.6-5.0) 02/24/18 05:56 BUN 16 mg/dL (6-20) 02/24/18 05:56 Creatinine 0.72 mg/dL (0.61-1.24) 02/24/18 05:56 Glucose 105 mg/dL (65-120) 02/24/18 05:56 Magnesium 2.1 mg/dL (1.8-2.5) 02/23/18 16:50 Total Bilirubin 1.4 mg/dL (0.3-1.2) H 02/23/18 16:50 AST 34 IU/L (10-42) 02/23/18 16:50 ALT 17 IU/L (10-60) 02/23/18 16:50 Alkaline Phosphatase 48 IU/L (42-121) 02/23/18 16:50 Troponin I < 0.03 ng/mL (<0.03) 02/24/18 14:57 B-Natriuretic Peptide 71 pg/ml (<=100) 02/23/18 16:50 Triglycerides 78 mg/dL (35-160) 02/24/18 05:56 Cholesterol 169 mg/dL (<200) 02/24/18 05:56 HDL Cholesterol 37 mg/dL (27-67) 02/24/18 05:56 Cholesterol/HDL Ratio 4.57 02/24/18 05:56 Lipase 21 U/L (22-51) L 02/23/18 16:50 Home Medications: Lisinopril 10 mg PO DAILY 05/06/17 Simvastatin 1 tab PO BEDTIME 05/06/17 Aspirin [Aspirin EC 81 MG] 1 tab PO DAILY 02/23/18 Gabapentin [Gralise] 300 mg PO BID 02/23/18 Levofloxacin [Levaquin*] 750 mg PO DAILY 5 Days #5 tab 02/25/18 New Medications: Levofloxacin [Levaquin*] 750 mg PO DAILY 5 Days #5 tab Patient Discharge Instructions: FOLLOW UP WITH PCP IN ONE WEEK. RETURN TO ER WITH NEW OR WORSENING SYMPTOMS Diet: Low sodium Activity: Weight bearing as tolerated Physician Review: Patient Assessed, Agree with Above Assessment and Plan Time spent managing pt's care (in minutes): 30
[2018-02-25] MEDS ORDERED: PNEUMOCOCCAL VACCINE 0.5 ML IMVAC ONE (17:00)
== END 2018-02-25 16:44 | disposition home health service (06) | DRG 195 ==
LOC: ER 14:35 → ERHOLD 16:30 → 4TH 20:13
PROVIDERS: ADMIT Internal Medicine; ATTEND Internal Medicine
DX: J18.9 Pneumonia, unspecified organism (principal); I10 Essential (primary) hypertension; R13.10 Dysphagia, unspecified; Z86.73 Personal history of transient ischemic attack (TIA), and cerebral infarction without residual deficits; F17.210 Nicotine dependence, cigarettes, uncomplicated; Z23 Encounter for immunization
CPT/HCPCS: 36415; 70450; 71045; 71250; 72125; 74230; 80048; 80061; 80076; 81003; 82550; 82553; 83690; 83735; 83880; 84443; 84484; 85025; 85610; 85730; 87040; 87086; 87088; 90670; 93005; 94760; 96361; 96365; 96366; 96367; 96375; 97163; 99285; G0009; J0360; J0456; J0696; J1650; J7030

== ENCOUNTER 2018-08-11 06:57 | Inpatient (IN) | payer MEDICARE ==
--- OUTSIDE RECORDS SUMMARY | 2018-08-11 06:59 | XMS REPORT | Continuity of Care Document ---
:1950 Author Organization Interface Problems Problem Status Onset Date Classification Date Comments Source Reported Medications Medication Details Route Status Patient Ordering Order Source Instructions Provider Date Allergies, Adverse Reactions, Alerts Substance Category Reaction Severity Reaction Status Date Comments Source type Reported Immunizations Immunization Date Given Site Status Last Updated Comments Source Results Order Results Value Reference Date Interpretation Comments Source Name Range Vital Signs Vital Sign Value Date Comments Source Encounters Location Location Encounter Encounter Reason Attending ADM DC Status Source Details Type Number For Provider Date Date Visit Outpatient [id number] LUCY 12/25 Active [facility] Out[facility] [id number] LUCY 01/06 Active [facility] Out[facility] [id number] LUCY 02/03 Active [facility] Out[facility] [id number] LUCY 03/18 Active [facility] [id number] LUCY 04/08 Active [facility] Outpatient [id number] LUCY 07/07 Active [facility] Outpatient [id number] LUCY 11/10 Active [facility] Procedures Procedure Code Date Perfomer Comments Source
--- OUTSIDE RECORDS SUMMARY | 2018-08-11 06:59 | XMS REPORT | Clinical Summary ---
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
--- OUTSIDE RECORDS SUMMARY | 2018-08-11 07:00 | XMS REPORT ---
:1950 Author Organization [facility] Address [address] [place] [address] Care Team Providers Name Role Phone FARZANEH ALVARADO Unavailable Unavailable Problems This patient has no known problems. Allergies, Adverse Reactions, Alerts This patient has no known allergies or adverse reactions. Medications This patient has no known medications. Results Test Description Test Time Test Comments Text Results Atomic Results Result Comments (MANUAL DIFFERENTIAL) 2017-01-05 07:27:00 Test Item Value Reference Range Comments TOTAL COUNTED (BEAKER) (test fppy=7984) CBC W/PLT COUNT & AUTO [id number] 07:10:00 Test Item Value Reference Range Comments WHITE BLOOD CELL COUNT (BEAKER) (test fcvz=597) 9.9 K/ L 4.0-10.0 RED BLOOD CELL COUNT (BEAKER) (test ivgn=155) 4.91 M/ L 4.20-5.80 HEMOGLOBIN (BEAKER) (test lpfj=607) 16.7 GM/DL 13.0-16.8 HEMATOCRIT (BEAKER) (test hqbh=424) 48.2 % 40.0-50.0 MEAN CORPUSCULAR VOLUME (BEAKER) (test duwj=329) 98.2 fL 82.0-98.0 MEAN CORPUSCULAR HEMOGLOBIN (BEAKER) (test 33.9 pg 27.0-33.0 kiyo=827) MEAN CORPUSCULAR HEMOGLOBIN CONC (BEAKER) (test 34.5 GM/DL 32.0-36.0 tfqv=780) RED CELL DISTRIBUTION WIDTH (BEAKER) (test 14.1 % 10.3-14.2 uuci=050) PLATELET COUNT (BEAKER) (test brpa=550) 202 K/CU MM 150-430 MEAN PLATELET VOLUME (BEAKER) (test kiyi=818) 7.1 fL 6.5-10.5 NUCLEATED RED BLOOD CELLS (BEAKER) (test 0 /100 WBC 0-0 dyek=554) NEUTROPHILS RELATIVE PERCENT (BEAKER) (test 54 % howr=390) LYMPHOCYTES RELATIVE PERCENT (BEAKER) (test 34 % wrai=347) MONOCYTES RELATIVE PERCENT (BEAKER) (test 10 % rkiy=983) EOSINOPHILS RELATIVE PERCENT (BEAKER) (test 1 % laxu=483) BASOPHILS RELATIVE PERCENT (BEAKER) (test 1 % wyjs=879) NEUTROPHILS ABSOLUTE COUNT (BEAKER) (test 5.36 K/ L 1.80-8.00 wzbr=685) LYMPHOCYTES ABSOLUTE COUNT (BEAKER) (test 3.31 K/ L 1.48-4.50 yhhg=548) MONOCYTES ABSOLUTE COUNT (BEAKER) (test 1.00 K/ L 0.00-1.30 yfkb=952) EOSINOPHILS ABSOLUTE COUNT (BEAKER) (test 0.12 K/ L 0.00-0.50 biiq=707) BASOPHILS ABSOLUTE COUNT (BEAKER) (test 0.07 K/ L 0.00-0.20 pmpd=570) [id number] [id number] 06:48:00 Test Item Value Reference Range Comments TRIGLYCERIDES (BEAKER) (test inek=589) 89 mg/dL CHOLESTEROL (BEAKER) (test qmjh=560) 158 mg/dL HDL CHOLESTEROL (BEAKER) (test rvpk=755) 40 mg/dL LDL CHOLESTEROL CALCULATED (BEAKER) (test 100 mg/dL ozjm=913) Triglyceride Reference Range: Low Risk <150 Borderline 150- 199 High Risk 200-499 Very High Risk >=500Cholesterol Reference Range: Low Risk <200 Borderline 200-239 High Risk > 240HDL Cholesterol Reference Range: Low Risk >=60 High Risk <40LDL Cholesterol Reference Range: Optimal <100 Near Optimal 100-129 Borderline 130-159 High 160-189 Very High >=190BASIC METABOLIC [id number] 06:48:00 Test Item Value Reference Range Comments SODIUM (BEAKER) (test 137 meq/L 136-145 opiv=641) POTASSIUM (BEAKER) (test 3.8 meq/L 3.5-5.1 jgci=481) CHLORIDE (BEAKER) (test 107 meq/L 98-107 ywzw=971) CO2 (BEAKER) (test 23 meq/L 22-29 gjow=370) BLOOD UREA NITROGEN 21 mg/dL 7-21 (BEAKER) (test czyb=030) CREATININE (BEAKER) (test 1.03 mg/dL 0.57-1.25 ccmg=936) GLUCOSE RANDOM (BEAKER) 101 mg/dL 70-105 (test mrfo=144) CALCIUM (BEAKER) (test 8.9 mg/dL 8.4-10.2 sgku=824) EGFR (BEAKER) (test 88 mL/min/1.73 sq m ESTIMATED GFR IS NOT phyg=9556) ACCURATE CREATININE CLEARANCE IN PREDICTING GLOMERULAR FILTRATION RATE. ESTIMATED GFR IS NOT APPLICABLE FOR DIALYSIS PATIENTS. HEMOGLOBIN [id number] 07:38:00 Test Item Value Reference Range Comments HEMOGLOBIN A1C (BEAKER) (test pblt=010) 5.6 % 4.3-6.1 TSH/FREE T4 IF [id number] 04:58:00 Test Item Value Reference Range Comments THYROID STIMULATING HORMONE (BEAKER) (test 1.28 uIU/mL 0.35-4.94 ecrh=219) VITAMIN B12 AND [id number] 04:58:00 Test Item Value Reference Range Comments VITAMIN B12 (BEAKER) (test bobs=107) 260 pg/mL 213-816 FOLATE (BEAKER) (test iann=276) 13.0 ng/mL >=7.0 Effective 09/12/2014: Folate Reference Range ChangeNew: >=7.0 Previous: & gt;=[id number] 04:08:00 Test Item Value Reference Range Comments MAGNESIUM (BEAKER) (test bvst=419) 2.0 mg/dL 1.6-2.6 BASIC METABOLIC [id number] 04:08:00 Test Item Value Reference Range Comments SODIUM (BEAKER) (test 140 meq/L 136-145 gjbu=330) POTASSIUM (BEAKER) (test 4.0 meq/L 3.5-5.1 jwrp=975) CHLORIDE (BEAKER) (test 107 meq/L 98-107 hvvu=816) CO2 (BEAKER) (test 22 meq/L 22-29 bmnp=322) BLOOD UREA NITROGEN 12 mg/dL 7-21 (BEAKER) (test pcpv=078) CREATININE (BEAKER) (test 0.92 mg/dL 0.57-1.25 rxuu=730) GLUCOSE RANDOM (BEAKER) 96 mg/dL 70-105 (test lwbv=401) CALCIUM (BEAKER) (test 9.4 mg/dL 8.4-10.2 mzvp=306) EGFR (BEAKER) (test 100 mL/min/1.73 sq m ESTIMATED GFR IS NOT wjwl=8200) ACCURATE CREATININE CLEARANCE IN PREDICTING GLOMERULAR FILTRATION RATE. ESTIMATED GFR IS NOT APPLICABLE FOR DIALYSIS PATIENTS. CREATINE KINASE (CK), TOTAL AND [id number] 04:08:00 Test Item Value Reference Range Comments CREATINE KINASE TOTAL (BEAKER) (test athk=553) 85 U/L 29-200 CREATINE KINASE-MB (BEAKER) (test fwgp=695) 0.6 ng/mL 0.0-6.6 CREATINE KINASE-MB INDEX (BEAKER) (test rvqb=962) 0.7 % Effective 09/12/2014: CK-MB Reference Range ChangeNew: 0.0-6.6 Previous: 0.0- 4.9CK-MB Reference Range:<6.7 Normal6.7-10.0 Borderline>10.0 AbnormalTROPONIN [id number] 04:07:00 Test Item Value Reference Range Comments TROPONIN I (BEAKER) (test ljvv=224) < ng/mL 0.00-0.03 Effective 09/12/2014: Reference Range [...] acidosis, acute neurological disease, and persistent tachyarrhythmia.PROTHROMBIN [id number] 03:45:00 Test Item Value Reference Range Comments PROTIME (BEAKER) (test abfy=437) 12.6 seconds 11.7-14.7 INR (BEAKER) (test brto=795) 1.0 <=5.9 RECOMMENDED COUMADIN/WARFARIN INR THERAPY RANGESSTANDARD DOSE: 2.0 - 3.0 Includes: PROPHYLAXIS forvenous thrombosis, systemic embolization; TREATMENT for venous thrombosis and/or pulmonary embolus.HIGH RISK: Target INR is 2.5-3.5 for patients with mechanical heart valves.CBC W/PLT COUNT & AUTO [id number] 03:42:00 Test Item Value Reference Range Comments WHITE BLOOD CELL COUNT (BEAKER) (test aafs=512) 9.6 K/ L 4.0-10.0 RED BLOOD CELL COUNT (BEAKER) (test qtke=073) 4.92 M/ L 4.20-5.80 HEMOGLOBIN (BEAKER) (test igdo=303) 16.9 GM/DL 13.0-16.8 HEMATOCRIT (BEAKER) (test dztk=146) 48.5 % 40.0-50.0 MEAN CORPUSCULAR VOLUME (BEAKER) (test nuqe=549) 98.6 fL 82.0-98.0 MEAN CORPUSCULAR HEMOGLOBIN (BEAKER) (test 34.3 pg 27.0-33.0 egzc=651) MEAN CORPUSCULAR HEMOGLOBIN CONC (BEAKER) (test 34.8 GM/DL 32.0-36.0 ulkw=951) RED CELL DISTRIBUTION WIDTH (BEAKER) (test 12.8 % 10.3-14.2 xrby=115) PLATELET COUNT (BEAKER) (test akfm=975) 200 K/CU MM 150-430 MEAN PLATELET VOLUME (BEAKER) (test uxqd=687) 7.0 fL 6.5-10.5 NUCLEATED RED BLOOD CELLS (BEAKER) (test 0 /100 WBC 0-0 czlx=758) NEUTROPHILS RELATIVE PERCENT (BEAKER) (test 60 % jpbs=481) LYMPHOCYTES RELATIVE PERCENT (BEAKER) (test 30 % tgvj=764) MONOCYTES RELATIVE PERCENT (BEAKER) (test 8 % yiin=349) EOSINOPHILS RELATIVE PERCENT (BEAKER) (test 1 % rnca=942) BASOPHILS RELATIVE PERCENT (BEAKER) (test 1 % gafs=735) NEUTROPHILS ABSOLUTE COUNT (BEAKER) (test 5.69 K/ L 1.80-8.00 nire=048) LYMPHOCYTES ABSOLUTE COUNT (BEAKER) (test 2.91 K/ L 1.48-4.50 ynzn=809) MONOCYTES ABSOLUTE COUNT (BEAKER) (test 0.81 K/ L 0.00-1.30 yybp=725) EOSINOPHILS ABSOLUTE COUNT (BEAKER) (test 0.10 K/ L 0.00-0.50 auiy=021) BASOPHILS ABSOLUTE COUNT (BEAKER) (test 0.06 K/ L 0.00-0.20 ftlv=577) 0.00
[2018-08-11 07:43] LABS: Absolute Lymphocytes (CBC) 1.3 K/uL (0.7-4.9); Absolute Monocytes 0.9 K/uL (0.1-1.3); Absolute Neutrophil 8.4 K/uL (1.8-8.0); Basophils % 0.2 % (0-1.3); Eosinophils % 0.3 % (0-4.4); Hematocrit 48.9 % (39.6-49.0); Lymphocytes % 12.3 % (15.3-44.8); MCH 32.6 pg (27.0-35.0); MCV 95.8 fL (80-100); MPV 7.9 fL (7.6-11.3); Monocytes % 8.4 % (3.3-12.3); Protime INR 1.03; RBC Red Blood Cell Count 5.11 M/uL (4.33-5.43)
--- NOTE | 2018-08-11 07:51 | EKG ---
Test Date: 2018-08-11 Test Time: 07:11:34 Correctional Officer Chief: LEO MEASUREMENT RESULTS: Intervals: Rate: 92 NV: 126 QRSD: 76 QT: 370 QTc: 457 [place]: P: 74 NV: 126 QRS: -6 T: 4 INTERPRETIVE STATEMENTS: Sinus rhythm with premature atrial complexes Possible Left atrial enlargement Inferior infarct, age undetermined Cannot rule out Anterior infarct, age undetermined Abnormal ECG Compared to ECG 02/23/2018 15:03:50 Atrial premature complex(es) now present Sinus tachycardia no longer present Myocardial infarct finding still present Electronically Signed On 08-11-18 07:50:21 CDT by Haseeb Douglas
--- NOTE | 2018-08-11 07:57 | RAD REPORT ---
EXAM DESCRIPTION: CT - Head Brain Wo Cont - 08/11/2018 7:44 am CLINICAL HISTORY: WEAKNESS History of CVA COMPARISON: Ct Stroke Brain Wo Cont dated 05/20/2017; Head Brain Wo Cont dated 05/05/2017 TECHNIQUE: All CT scans are performed using dose optimization technique as appropriate and may inclu de automated exposure control or mA/KV adjustment according to patient size. FINDINGS: No intracranial hemorrhage, hydrocephalus or extra-axial fluid collection.Moderate general ized brain atrophy is present with moderate periventricular and deep white matter chronic microvascul ar ischemic changes.Area of gliosis is seen left occipital lobe compatible with remote infarction. The paranasal sinuses and mastoids are clear. The calvarium is intact. IMPRESSION: No acute intracranial abnormality. If there is continued clinical concern for CVA, MR i maging of the brain would be recommended.
[2018-08-11 08:09] LABS: BUN Blood Urea Nitrogen 22 mg/dL (7-18); Bicarbonate 26 mmol/L (21-32); Glucose Level 107 mg/dL (74-106); Magnesium 2.3 mg/dL (1.8-2.4); Potassium 3.2 mmol/L (3.5-5.1); Sodium Level 143 mmol/L (136-145); Troponin (Emerg Dept Use Only) 0.02 ng/mL (0.0-0.045)
[2018-08-11 08:11] LABS: Creatine Phosphokinase 3194 U/L (39-308)
--- NOTE | 2018-08-11 08:18 | RAD REPORT ---
EXAM DESCRIPTION: RAD - Chest Single View - 08/11/2018 7:31 am CLINICAL HISTORY: weakness, found down Chest pain. COMPARISON: Chest Single View dated 02/23/2018; Chest Single View dated 05/20/2017; Chest Single View d ated 05/05/2017; Chest Single View dated 01/03/2017 FINDINGS: Portable technique limits examination quality. Small right pleural effusion is seen with right lung base opacity likely representing pneumonia or as piration. The heart is normal in size. No displaced fractures. IMPRESSION: Right lung base infiltrate likely represents pneumonia or aspiration. Trace right pleura l fluid.
[2018-08-11] MEDS ORDERED: NA CHLORIDE 0.9% 500 ML ONE (08:20)
[2018-08-11 08:27] LABS: Urine Blood NEGATIVE (NEG); Urine Glucose NEGATIVE (NEG); Urine Protein 1+ (NEG); Urine pH 5.5 (5.0-7.0)
[2018-08-11 08:32] LABS: Urine Bacteria <20 /HPF (NONE SEEN); Urine RBC NONE SEEN /HPF (NONE SEEN)
[2018-08-11 08:33] LABS: Urine Culture Reflex Order NOT NEEDED; Urine Mucus SLIGHT /HPF (NONE SEEN)
--- NOTE | 2018-08-11 08:42 | EDPHYS ---
Physician Documentation [facility] Name: Srinivas Foy Age: 67 yrs Sex: Male : 1950 Arrival Date: 08/11/2018 Time: 07:02 Bed 4 Private MD: ED Physician Phill Mays HPI: 08/11 07:12 This 67 yrs old Black Male presents to ER via EMS with complaints of General Weakness. rn 07:12 Per EMS report, suspect down for about 24 hours, state when brother got home, patient rn on floor, unknown amount of time per patient, brother called for lift assist, + generalized weakness, reports hx of previous strokes but no new symptoms. Denies chest pain/abd pain. Reports generalized weakness and pain. . Onset: The symptoms/episode began/occurred at an unknown time. Severity of symptoms: At their worst the symptoms were moderate in the emergency department the symptoms are unchanged. It is unknown whether or not the patient has had similar symptoms in the past. The patient has not recently seen a physician. Historical: - Allergies: 07:04 NKA; bb - Home Meds: 07:04 Shanti Aspirin 81 mg Oral 1 tab once daily [Active]; clonidine HCl 0.2 mg Oral tab 1 tab bb Q8H [Active]; gabapentin 300 mg Oral cap 1 cap twice a day [Active]; lisinopril 10 mg Oral tab 1 tab once daily [Active]; simvastatin 40 mg Oral tab 1 tab once daily [Active]; - PMHx: 07:04 CVA; Hypertension; unable to verify; bb - PSHx: 07:04 Unable to obtain; bb - Immunization history:: Adult Immunizations unknown. - Social history:: Smoking status: unknown. - Ebola Screening: : No symptoms or risks identified at this time. - Family history:: not pertinent. - Hospitalizations: : No recent hospitalization is reported. ROS: 07:12 Constitutional: Negative for fever, chills, and weight loss, Eyes: Negative for injury, rn pain, redness, and discharge, Neck: Negative for injury, pain, and swelling, Cardiovascular: Negative for chest pain, palpitations, and edema, Respiratory: Negative for shortness of breath, cough, wheezing, and pleuritic chest pain, Abdomen/GI: Negative for abdominal pain, nausea, vomiting, diarrhea, and constipation, Back: Negative for injury and pain, MS/Extremity: Negative for injury and deformity, Skin: Negative for injury, rash, and discoloration, Neuro: Negative for headache, numbness, tingling, and seizure. Exam: 07:12 Constitutional: Thin male, no acute distress Head/Face: Normocephalic, atraumatic. rn Eyes: Pupils equal round and reactive to light, extra-ocular motions intact. Lids and lashes normal. Conjunctiva and sclera are non-icteric and not injected. Cornea within normal limits. Periorbital areas with no swelling, redness, or edema. ENT: dry MM Cardiovascular: Regular rate and rhythm with a normal S1 and S2. No gallops, murmurs, or rubs. Normal PMI, no JVD. No pulse deficits. Respiratory: Lungs have equal breath sounds bilaterally, clear to auscultation. No rales, rhonchi or wheezes noted. Abdomen/GI: soft, non-tender MS/ Extremity: Pulses equal, no cyanosis. Equal circumference. Neuro: Awake and alert, GCS 15, oriented to person, place, not time. Motor strength 3+/5 in all 4 extremities, sensation to pain and soft touch intact on right side, possible extinction LUE Vital Signs: 07:04 BP 160 / 100; Pulse 98; Resp 18 S; Temp 97.3(O); Pulse Ox 96% on R/A; Weight 79.38 kg bb (R); Height 5 ft. 7 in. (170.18 cm) (R); 07:30 BP 161 / 91; Pulse 89; Resp 16 S; Pulse Ox 94% on R/A; jl7 08:18 BP 158 / 87; Pulse 88; Resp 19 S; Pulse Ox 99% on 2 lpm NC; lp1 09:00 BP 177 / 86; Pulse 79; Resp 16; Pulse Ox 100% on 2 lpm NC; jl7 09:43 BP 170 / 90; Pulse 78; Resp 16 S; Pulse Ox 100% on 2 lpm NC; jl7 07:04 Body Mass Index 27.41 (79.38 kg, 170.18 cm) bb MDM: 07:06 Patient medically screened. rn 08:39 Differential Diagnosis altered mental status, sepsis, pneumonia, UTI, rhabdo. Data rn reviewed: vital signs, nurses notes, lab test result(s), EKG, radiologic studies, plain films, and as a result, I will admit patient. Counseling: I had a detailed discussion with the patient and/or guardian regarding: the historical points, exam findings, and any diagnostic results supporting the discharge/admit diagnosis, lab results, radiology results, the need for further work-up and treatment in the hospital. 08:40 Admission orders: after a detailed discussion of the patient's condition and case, the rn progressive care orders are written by me. 08/11 07:11 Order name: Basic Metabolic Panel; Complete Time: 08:20 rn 08/11 07:11 Order name: CBC with Diff; Complete Time: 08:20 rn 08/11 07:11 Order name: CPK; Complete Time: 08:20 rn 08/11 07:11 Order name: Magnesium; Complete Time: 08:20 08/11 07:11 Order name: Protime (+inr); Complete Time: 08:20 08/11 07:11 Order name: Ptt, Activated; Complete Time: 08:20 08/11 07:11 Order name: CT Head Brain wo Cont; Complete Time: 08:20 08/11 07:11 Order name: Troponin (emerg Dept Use Only); Complete Time: 08:20 08/11 07:11 Order name: Blood Culture Adult (2) 08/11 07:11 Order name: Urine Culture 08/11 07:11 Order name: Procalcitonin; Complete Time: 08:20 08/11 07:11 Order name: XRAY Chest (1 view); Complete Time: 08:20 08/11 07:12 Order name: Urine Microscopic Only; Complete Time: 08:40 08/11 08:23 Order name: Urine Dipstick--Ancillary (enter results); Complete Time: 08:40 eb 08/11 07:11 Order name: EKG; Complete Time: 07:12 rn 08/11 07:11 Order name: Cardiac monitoring; Complete Time: 07:32 rn 08/11 07:11 Order name: EKG - Nurse/Tech; Complete Time: 07:32 rn 08/11 07:11 Order name: IV Saline Lock; Complete Time: 07:32 rn 08/11 07:11 Order name: Labs collected and sent; Complete Time: 07:32 rn 08/11 07:11 Order name: NPO; Complete Time: 07: rn 08/11 07:11 Order name: O2 Per Protocol; Complete Time: : rn 08/11 07:11 Order name: O2 Sat Monitoring; Complete Time: : rn 08/11 07:11 Order name: Urine Dipstick-Ancillary (obtain specimen); Complete Time: 08:17 rn Administered Medications: 08:17 Drug: NS 0.9% 500 ml Route: IV; Rate: bolus; Site: right forearm; lp1 08:47 Follow up: Response: No adverse reaction; IV Status: Completed infusion lp1 08:40 Drug: Rocephin - (cefTRIAXone) 1 grams Route: IVPB; Infused Over: 30 mins; Site: right lp1 forearm; 08:43 Follow up: Response: No adverse reaction; IV Status: Completed infusion lp1 08:45 Drug: Clindamycin 600 mg Route: IVPB; Infused Over: 30 mins; Site: right forearm; lp1 09:15 Follow up: Response: No adverse reaction; IV Status: Completed infusion jl7 Disposition: 08/11/18 08:41 Hospitalization ordered by Amparo Overton for Inpatient Admission. Preliminary diagnosis are Weakness, Rhabdomyolysis, Pneumonia, Dehydration. - Bed requested for Telemetry/MedSurg (Inpatient). - Status is Inpatient Admission. bp - Condition is Stable. - Problem is new. - Symptoms have improved. UTI on Admission? No Signatures: Dispatcher [employer] EDMS Carmen Frazier RN RN dw Ballard, Brenda RN Phill Saez MD MD rn Pena, Laura, RN RN lp1 Royer Alcaraz RN RN bp Leal, Jahala RN jl7 Corrections: (The following items were deleted from the chart) 07:22 07:12 Constitutional: Thin male, no acute distress Head/Face: Normocephalic, rn atraumatic. Eyes: Pupils equal round and reactive to light, extra-ocular motions intact. Lids and lashes normal. Conjunctiva and sclera are non-icteric and not injected. Cornea within normal limits. Periorbital areas with no swelling, redness, or edema. ENT: dry MM Cardiovascular: Regular rate and rhythm with a normal S1 and S2. No gallops, murmurs, or rubs. Normal PMI, no JVD. No pulse deficits. Respiratory: Lungs have equal breath sounds bilaterally, clear to auscultation. No rales, rhonchi or wheezes noted. Abdomen/GI: soft, non-tender MS/ Extremity: Pulses equal, no cyanosis. Equal circumference. Neuro: Awake and alert, GCS 15, oriented to person, place, not time. Motor strength 3+/5 in all 4 extremities, sensation to pain and soft touch intact rn 09:14 08:41 Hospitalization Ordered by Amparo Overton MD for Inpatient Admission. Preliminary dw diagnosis is Weakness; Rhabdomyolysis; Pneumonia; Dehydration. Bed requested for Telemetry/MedSurg (Inpatient). Status is Inpatient Admission. Condition is Stable. Problem is new. Symptoms have improved. UTI on Admission? No. rn 10:08 09:14 08/11/2018 08:41 Hospitalization Ordered by Amparo Overton MD for Inpatient bp Admission. Preliminary diagnosis is Weakness; Rhabdomyolysis; Pneumonia; Dehydration. Bed requested for Telemetry/MedSurg (Inpatient). Status is Inpatient Admission. Condition is Stable. Problem is new. Symptoms have improved. UTI on Admission? No. dw
--- NOTE | 2018-08-11 08:42 | ER ---
Nurse's Notes [facility] Name: Srinivas Foy Age: 67 yrs Sex: Male : 1950 Arrival Date: 08/11/2018 Time: 07:02 Bed 4 Private MD: Diagnosis: Weakness;Rhabdomyolysis;Pneumonia;Dehydration Presentation: 08/11 07:02 Presenting complaint: EMS states: they were toned out for a lift assist on arrival pt bb had been lying on the floor for approx 24 hours pt has hx of multiple strokes and was ambulatory but is now unable to bear weight. Transition of care: patient was not received from another setting of care. Onset of symptoms is unknown. Risk Assessment: Do you want to hurt yourself or someone else? Patient reports no desire to harm self or others. Initial Sepsis Screen: Does the patient meet any 2 criteria? No. Patient's initial sepsis screen is negative. Does the patient have a suspected source of infection? No. Patient's initial sepsis screen is negative. Care prior to arrival: IV initiated. 20 GA, in the left forearm. 07:02 Method Of Arrival: EMS: [facility] bb 07:02 Acuity: RULA 2 bb Historical: - Allergies: 07:04 NKA; bb - Home Meds: 07:04 Shanti Aspirin 81 mg Oral 1 tab once daily [Active]; clonidine HCl 0.2 mg Oral tab 1 tab bb Q8H [Active]; gabapentin 300 mg Oral cap 1 cap twice a day [Active]; lisinopril 10 mg Oral tab 1 tab once daily [Active]; simvastatin 40 mg Oral tab 1 tab once daily [Active]; - PMHx: 07:04 CVA; Hypertension; unable to verify; bb - PSHx: 07:04 Unable to obtain; bb - Immunization history:: Adult Immunizations unknown. - Social history:: Smoking status: unknown. - Ebola Screening: : No symptoms or risks identified at this time. - Family history:: not pertinent. - Hospitalizations: : No recent hospitalization is reported. Screenin:05 Abuse screen: Denies threats or abuse. Denies injuries from another. Nutritional lp1 screening: No deficits noted. Tuberculosis screening: No symptoms or risk factors identified. Fall Risk Fall in past 12 months (25 points). Secondary diagnosis (15 points) CVA, IV access (20 points). Ambulatory Aid- None/Bed Rest/Nurse Assist (0 pts). Total Severino Fall Scale indicates High Risk Score (45 or more points). Fall prevention measures have been instituted. Side Rails Up X 2 Placed Close to Nursing Station Frequent Obs/Assessments Occuring As available patient and family educated on Fall Prevention Program and Strategies. Assessment: 07:05 General: Appears uncomfortable, ill, Behavior is calm, cooperative. Pain: Denies pain. lp1 Neuro: Level of Consciousness is awake, alert, obeys commands, Oriented to person, place, Speech is normal. Cardiovascular: Patient's skin is warm and dry. Respiratory: Airway is patent Respiratory effort is even, unlabored, Respiratory pattern is regular, symmetrical. GI: No signs and/or symptoms were reported involving the gastrointestinal system. : No deficits noted. EENT: No signs and/or symptoms were reported regarding the EENT system. Derm: Skin is pink, warm \T\ dry. Musculoskeletal: Range of motion: limited in left elbow and right elbow. 08:00 Reassessment: Patient appears in no apparent distress at this time. No changes from jl7 previously documented assessment. Patient and/or family updated on plan of care and expected duration. Pain level reassessed. Patient is alert, oriented x 3, equal unlabored respirations, skin warm/dry/pink. 09:00 Reassessment: Patient and/or family updated on plan of care and expected duration. Pain jl7 level reassessed. Patient is alert, oriented x 3, equal unlabored respirations, skin warm/dry/pink. 09:49 Reassessment: Home health caregiver and pt's nephew at bedside, requesting to speak to jl7 the doctorJORGE notified. Vital Signs: 07:04 BP 160 / 100; Pulse 98; Resp 18 S; Temp 97.3(O); Pulse Ox 96% on R/A; Weight 79.38 kg bb (R); Height 5 ft. 7 in. (170.18 cm) (R); 07:30 BP 161 / 91; Pulse 89; Resp 16 S; Pulse Ox 94% on R/A; jl7 08:18 BP 158 / 87; Pulse 88; Resp 19 S; Pulse Ox 99% on 2 lpm NC; lp1 09:00 BP 177 / 86; Pulse 79; Resp 16; Pulse Ox 100% on 2 lpm NC; jl7 09:43 BP 170 / 90; Pulse 78; Resp 16 S; Pulse Ox 100% on 2 lpm NC; jl7 07:04 Body Mass Index 27.41 (79.38 kg, 170.18 cm) bb ED Course: 07:02 Patient arrived in ED. bb 07:04 Triage completed. bb 07:04 Arm band placed on Patient placed in an exam room, on a stretcher, on monitor and storage bin tender, bb on pulse oximetry. 07:05 Patient has correct armband on for positive identification. Bed in low position. Call lp1 light in reach. Side rails up X 1. Side rails up X2. manager monitoring on. Pulse ox on. NIBP on. Warm blanket given. 07:06 Phill Mays MD is Attending Physician. rn 07:14 Andrew Avila RN is Primary Nurse. jl7 07:15 EKG done, by ED staff, reviewed by Phill Mays MD. 3 07:19 Initial lab(s) drawn, by ED staff, sent to lab. First set of blood cultures drawn by ED dh3 staff. Inserted saline lock: 22 gauge in right forearm, using aseptic technique. Blood collected. by YARITZA Morales. 07:29 X-ray completed. Portable x-ray completed in exam room. Patient tolerated procedure mh1 well. 07:31 XRAY Chest (1 view) In Process Unspecified. EDMS 07:44 CT Head Brain wo Cont In Process Unspecified. EDMS 07:45 Cleaned of incontinence. Linen changed. jl7 08:18 Urine collected: straight cath specimen, deb colored. Straight cath inserted, using lp1 sterile technique, 16 Fr. Specimen obtained. Returned deb urine. Patient tolerated poorly. 08:40 Amparo Overton MD is Hospitalizing Provider. rn 09:48 Attempted to call report, receiving nurse is feeding another pt and will call back once jl7 done. 10:07 No provider procedures requiring assistance completed. Patient admitted, IV remains in bp place. Administered Medications: 08:17 Drug: NS 0.9% 500 ml Route: IV; Rate: bolus; Site: right forearm; lp1 08:47 Follow up: Response: No adverse reaction; IV Status: Completed infusion lp1 08:40 Drug: Rocephin - (cefTRIAXone) 1 grams Route: IVPB; Infused Over: 30 mins; Site: right lp1 forearm; 08:43 Follow up: Response: No adverse reaction; IV Status: Completed infusion lp1 08:45 Drug: Clindamycin 600 mg Route: IVPB; Infused Over: 30 mins; Site: right forearm; lp1 09:15 Follow up: Response: No adverse reaction; IV Status: Completed infusion jl7 Outcome: 08:41 Decision to Hospitalize by Provider. rn 10:07 Admitted to Tele accompanied by tech, family with patient, via stretcher, room 224, bp with chart. 10:07 Condition: stable 10:07 Instructed on the need for admit. 10:08 Patient left the ED. bp Signatures: Dispatcher [employer] EDMS Tricia Eagle 1 Concepcion Vallejo RN RN bb Phill Mays MD MD rn Pena, Laura, RN RN lp1 Andrew Avila RN RN jl7 Sia Winn 3 Royer Alcaraz RN RN bp Corrections: (The following items were deleted from the chart) 07:06 07:04 BP 160 / 100; Pulse 98bpm; Resp 18bpm; Spontaneous; Pulse Ox 96% RA; Temp 97.3F bb Oral; 79.38 kg Reported; Height 5 ft. 10 in. Reported; BMI: 25.1; bb
[2018-08-11] MEDS ORDERED: CLINDAMYCIN 600MG/D5W 600 MG/50 ML BAG IV ONE (08:43)
[2018-08-11] MEDS ORDERED: CEFTRIAXONE/SWI 1gm 1 GM/10 ML SYR ONE (08:43)
[2018-08-11] MEDS ORDERED: ONDANSETRON 4 MG/2 ML VIAL IV PRN (10:05)
[2018-08-11] MEDS: ENOXAPARIN 40 MG/0.4 ML SQ SCH (10:57)
[2018-08-11] MEDS: NA CHLORIDE 0.9% 1,000 ML IV SCH ×2 (10:57→22:38)
[2018-08-11] MEDS: KCL 20 MEQ/100 mL IVPB 20 MEQ/100 ML BAG IV SCH ×2 (13:39→15:45)
--- NOTE | 2018-08-11 17:45 | P.HP ---
Certification for Inpatient Patient admitted to: Inpatient With expected LOS: >2 Midnights Patient will require the following post-hospital care: None Practitioner: I am a practitioner with admitting privileges, knowledge of patient current condition, hospital course, and medical plan of care. Services: Services provided to patient in accordance with Admission requirements found in Title 42 Section 412.3 of the Code of Federal Regulations Patient History Date of Service: 08/11/18 Primary Care Provider: Dr Landis Reason for admission: Fall History of Present Illness: This is a 67-year-old male with significant past medical history of hypertension and previous stroke who presented to the ED after being found down at the house by his brother. Patient and family at bedside complains of having generalized weakness for past couple of days. Brother states that when he got home patient was on the floor for an unknown amount of time however he suspects that he was down for about 24 hr. Brother at that time he did call left assists and patient was brought over to the ER for further care. Patient denies having any fever chills nausea vomiting abdominal pain headaches or any other associated symptoms at this time. Patient does have history of previous strokes and did have similar symptoms in the past from that. In the ER patient had imaging and lab work done which was consistent with rhabdomyolysis. Head CT was negative for any acute stroke. Patient then was admitted to [facility] for further workup. Allergies No Known Allergies Allergy (Verified 02/23/18 23:26) Home Medications: Lisinopril 10 mg PO DAILY 05/06/17 Simvastatin 1 tab PO BEDTIME 05/06/17 Aspirin [Aspirin EC 81 MG] 1 tab PO DAILY 02/23/18 Gabapentin [Gralise] 300 mg PO BID 02/23/18 - Past Medical/Surgical History Has patient received pneumonia vaccine in the past: No Diabetic: No -: Stroke-2016 -: Hypertension - Family History Father -: Other (see notes) Notes: of old age Mother -: Hypertension - Social History Smoking Status: Current every day smoker Alcohol use: Yes CD- Drugs: No Caffeine use: No Place of Residence: Home Review of Systems 10-point ROS is otherwise unremarkable Physical Examination - Vital Signs Temperature: 98.5 F Blood Pressure: 194/98 Pulse: 75 Respirations: 16 Pulse Ox (%): 0 - Physical Exam General: Alert, In no apparent distress HEENT: Atraumatic, PERRLA, Mucous membr. moist/pink, EOMI, Sclerae nonicteric Neck: Supple, 2+ carotid pulse no bruit, No LAD, Without JVD or thyroid abnormality Respiratory: Clear to auscultation bilaterally, Normal air movement Cardiovascular: Regular rate/rhythm, Normal S1 S2 Gastrointestinal: Normal bowel sounds, No tenderness Musculoskeletal: No tenderness Integumentary: No rashes Neurological: Normal gait, Normal speech, Normal strength at 5/5 x4 extr, Normal tone, Normal affect Lymphatics: No axilla or inguinal lymphadenopathy - Studies Laboratory Data (last 24 hrs) 08/11/18 07:19: PT 12.2, INR 1.03, APTT 27.8 08/11/18 07:19: WBC 10.6, Hgb 16.7, Hct 48.9, Plt Count 206 08/11/18 07:19: Sodium 143, Potassium 3.2 L, BUN 22 H, Creatinine 0.90, Glucose 107 H, Magnesium 2.3 Assessment and Plan - Problems (Diagnosis) (1) Fall Current Visit: Yes Status: Acute Plan: S/P Fall. unknown Etiology -PT consulted. -Fall precautions Qualifiers: Encounter type: initial encounter Qualified Code(s): W19.XXXA - Unspecified fall, initial encounter (2) Rhabdomyolysis Current Visit: Yes Status: Acute Plan: Elevated CK post fall -IV fluids for now -trend CK kevin AM -Avoid Nephrotoxic agent -Cardiac tele Qualifiers: Rhabdomyolysis type: non-traumatic Qualified Code(s): M62.82 - Rhabdomyolysis (3) Weakness Onset Date: 05/21/17 Current Visit: No Status: Chronic Plan: PT consulted. (4) Essential hypertension Onset Date: 02/24/18 Current Visit: No Status: Chronic Plan: Restart home medication (5) Hyperlipidemia Current Visit: No Status: Chronic Plan: Hold home medication at this time as that can induce worsening of rhabdomyolysis Qualifiers: Hyperlipidemia type: mixed hyperlipidemia Qualified Code(s): E78.2 - Mixed hyperlipidemia Discharge Plan: Home Plan to discharge in: 48 Hours - Advance Directives Does patient have a Living Will: No Does patient have a Durable POA for Healthcare: No - Code Status/Comfort Care Code Status Assessed: Yes Critical Care: No
[2018-08-11] MEDS: HYDRALAZINE HCL 20 MG/ML VIAL IV PRN (17:53)
[2018-08-11 18:50] LABS: Urine Appearance CLEAR; Urine Blood 1+ (NEG); Urine Color ORANGE; Urine Glucose NEGATIVE (NEG); Urine Protein 1+ (NEG); Urine Specific Gravity >=1.030 (1.005-1.030); Urine pH 5.5 (5.0-7.0)
[2018-08-11 19:01] LABS: Urine Bilirubin NEGATIVE (NEG); Urine Microscopic Reflex ORDER UMIC
[2018-08-11 19:21] LABS: Urine Mucus 3+ /HPF (NONE SEEN)
[2018-08-11 19:22] LABS: Urine Bacteria <20 /HPF (NONE SEEN); Urine Culture Reflex Order NOT NEEDED
[2018-08-11] MEDS ORDERED: HOME MED 1 EA UNK (Gabapentin [Gralise] 300 MG) PO SCH (21:00)
[2018-08-11] MEDS ORDERED: LORazepam 2 MG/ML VIAL IV ONE (21:38)
[2018-08-12] MEDS: HYDRALAZINE HCL 20 MG/ML VIAL IV PRN (00:41)
[2018-08-12] MEDS ORDERED: POTASSIUM 25 MEQ EFFERV TAB PO ONE (03:00)
[2018-08-12 04:51] LABS: Absolute Monocytes 0.8 K/uL (0.1-1.3); Absolute Neutrophil 6.2 K/uL (1.8-8.0); Basophils % 0.5 % (0-1.3); Eosinophils % 2.1 % (0-4.4); Lymphocytes % 21.6 % (15.3-44.8); MCH 32.8 pg (27.0-35.0); MCV 94.1 fL (80-100); MPV 8.9 fL (7.6-11.3); Monocytes % 8.5 % (3.3-12.3)
[2018-08-12 04:55] LABS: ALT/SGPT 51 U/L (12-78); AST/SGOT 275 U/L (15-37); Albumin 3.5 g/dL (3.4-5.0); Alkaline Phosphatase 61 U/L (45-117); BUN Blood Urea Nitrogen 10 mg/dL (7-18); Bicarbonate 23 mmol/L (21-32); Bilirubin Total 1.2 mg/dL (0.2-1.0); Glucose Level 95 mg/dL (74-106); Protein, Total 7.1 g/dL (6.4-8.2); Sodium Level 142 mmol/L (136-145)
[2018-08-12] MEDS: NA CHLORIDE 0.9% 1,000 ML IV SCH (05:45)
--- NOTE | 2018-08-12 06:46 | RAD REPORT ---
EXAM DESCRIPTION: MRI - Brain Wo Cont - 08/11/2018 10:22 pm CLINICAL HISTORY: Transient alteration of awareness, stroke-like symptoms COMPARISON: CT head August 11, stroke protocol MRI December 2017 TECHNIQUE: Sagittal T1-weighted images were obtained along with axial PD, heavily T2-weighted and T2 -FLAIR images. Axial DWI and ADC mapping sequences were also obtained along with coronal heavily T2-w eighted images. FINDINGS: No intracranial hemorrhage or mass lesions seen. Diffusion-weighted imaging shows multiple areas of abnormal signal involving cortical tissue and subcortical white matter in the right frontal and parietal lobes. Abnormal signal is present involving a substantial portion of the medial right o ccipital lobe extending into the medial posterior aspect of the right temporal lobe. All of these are as have corresponding signal drop on ADC mapping. There is a questionable small focus in the right th alamus as well. The December MRA study shows persistent origin of the right posterior cerebral artery anatomic frederick iant. This would indicate the acute stroke findings are from a single vascular distribution. Acute stroke symptoms cause no significant degree of mass effect. No significant edema or shift of mi dline structures. T2 and STIR sequences show old left occipital lobe CVA change. Advanced chronic ischemic change prese nt throughout the white matter with moderate atrophy. Ventricles are in proportion to the amount of v olume loss. There is brainstem chronic ischemic change. No extra-axial fluid collections. Ndiaye-matter /white matter junction is preserved. Signal voids are seen as a normal finding in the major intracran ial vessels. Mastoid air cells and paranasal sinuses are clear. IMPRESSION: Large nonhemorrhagic CVA involving the medial right except for lobe and portions of the posteromedial right temporal lobe. This is the vascular distribution of the right posterior cerebral artery. For this patient, right CONSTRUCTION SUPERINTENDENT supply comes from a large posterior communicating artery off of the internal carotid artery. Multiple sites of nonhemorrhagic acute infarction in the right frontal and parietal lobes. This repre sents multiple branches of the right middle cerebral artery distribution. Baseline of advanced atrophy and chronic ischemic change. Acute infarction changes do not result in significant mass effect or edema. No midline shift.
--- NOTE | 2018-08-12 11:44 | P.PN ---
Subjective Date of Service: 08/12/18 Primary Care Provider: Dr Landis Chief Complaint: Fall Subjective: Other (Patient alert but slightly confused.) Physical Examination - Vital Signs Temperature: 98.4 F Blood Pressure: 180/52 Pulse: 104 Respirations: 20 Pulse Ox (%): 100 - Physical Exam General: Alert, Oriented x1, Cooperative, Confused HEENT: Atraumatic Neck: Supple Respiratory: Crackles/rales (Mild crackles to the right base) Cardiovascular: Normal pulses, Regular rate/rhythm Gastrointestinal: Normal bowel sounds, No tenderness, No masses, No rebound, No guarding Musculoskeletal: No erythema, No tenderness, No warmth Integumentary: No tenderness/swelling, No erythema, No warmth, No cyanosis Neurological: Normal speech, Normal strength at 5/5 x4 extr, Normal tone, Other (Slight confusion noted) - Studies Medications List Reviewed: Yes Assessment & Plan Discharge Plan: Other (Skilled placement facility) Plan to discharge in: Greater than 2 days Physician Review Additional Text: Impression: Fall with acute rhabdomyolysis Weakness, confusion, fall secondary to Acute CVA with MRI showing large nonhemorrhagic CVA involving the medial right occipital lobe and portions of posterior medial right temporal lobe this corresponds with vascular distribution of the right posterior cerebral artery coming from the large federal court of appeals law clerk communicating artery off of the internal carotid artery. Multiple sites of nonhemorrhagic acute CVA also noted in the right frontal and parietal lobes representing multiple branches of the right middle cerebral artery distribution. Baseline advanced atrophy and chronic ischemic changes noted. Right lower lobe pneumonia suspect aspiration Hypertension Hyperlipidemia Plan: Fall with acute rhabdomyolysis: Will adjust IV fluids. Will physical therapy assess ambulation. Patient will likely not be a candidate for inpatient rehab. Will need to consider skilled placement. Will need discuss with family. Will monitor closely with physical therapy. Weakness, confusion, fall secondary to Acute CVA with MRI showing large nonhemorrhagic CVA involving the medial right occipital lobe and portions of posterior medial right temporal lobe this corresponds with vascular distribution of the right posterior cerebral artery coming from the large federal court of appeals law clerk communicating artery off of the internal carotid artery. Multiple sites of nonhemorrhagic acute CVA also noted in the right frontal and parietal lobes representing multiple branches of the right middle cerebral artery distribution. Baseline advanced atrophy and chronic ischemic changes noted: Patient currently on aspirin, Plavix and statin medication. Medications adjusted. Patient on DVT prophylaxis. Patient already taking lisinopril. Metoprolol added for better blood pressure control. Will maintain blood pressure systolic around 160-180. This will need to be monitored and adjusted closely over the next several days. Case discussed with Neurology. Patient not likely a good candidate for inpatient rehab. Will need to see what physical therapy, occupational therapy and speech therapy finds in their evaluation. Will need to consider skilled placement. Will need to discuss this further with patient and family. Will monitor closely. Provide aspiration precaution. Will need to consider dobhoff placement for nutrition if nutrition poor. Will need to check echocardiogram and carotid Doppler. Right lower lobe pneumonia suspect aspiration: Patient started on IV antibiotic therapy-Levaquin. Will recheck chest x-ray. Aspiration precaution in place. Will maintain sats above 90%. Hypertension: Patient currently on lisinopril. Will add metoprolol for better blood pressure control. Will maintain blood pressures around 160-180 systolic. Will need to adjust slowly due to acute CVA affecting multiple areas. Hyperlipidemia: Will increase statin medication. Will check fasting lipid panel. Will continue with above plan of care. Time Spent Managing Pts Care (In Minutes): 55
[2018-08-12] MEDS: Levofloxacin 750mg IV 750 MG/150 ML BAG IV SCH (12:03)
[2018-08-12] MEDS: ENOXAPARIN 40 MG/0.4 ML SQ SCH (12:04)
[2018-08-12] MEDS ORDERED: POTASSIUM CL SA 10 MEQ TAB PO ONE (12:53)
--- NOTE | 2018-08-12 13:27 | RAD REPORT ---
EXAM DESCRIPTION: Janiet Single View08/12/2018 1:17 pm CLINICAL HISTORY: Chest pain COMPARISON: August 11, 2018 FINDINGS: Mild right lower lobe opacities are unchanged. Left lung appears clear. The heart is norm al size IMPRESSION: No change in a mild right lower lobe pneumonia
[2018-08-12] MEDS: LISINOPRIL 10 MG TAB PO SCH (13:48)
[2018-08-12] MEDS: GABAPENTIN 300 MG CAP PO SCH ×2 (13:50→20:27)
[2018-08-12] MEDS: ASPIRIN EC 81 MG TAB PO SCH (13:50)
[2018-08-12] MEDS: NACHLORIDE 0.45% 1,000 ML IV SCH (13:51)
[2018-08-12] MEDS: METOPROLOL TAR 25 MG TAB PO SCH (17:14)
--- NOTE | 2018-08-12 19:54 | RAD REPORT ---
EXAM DESCRIPTION: USCarotid Artery Hnogbusvx16/18/2018 7:30 pm CLINICAL HISTORY: cva COMPARISON: 2016 FINDINGS: The velocity of the right internal carotid artery equals 59 with cm/sec. The right ICA/CCA ratio 1 The velocity of the left internal carotid artery equals 79 cm/sec. The left ICA/CCA ratio 1.2 Mild plaque is present within the carotid arteries. The vertebral arteries demonstrate antegrade flow IMPRESSION: Mild plaque within the carotid arteries without evidence of a hemodynamically significan t stenosis
[2018-08-12] MEDS: ATORVASTATIN 40 MG TAB PO SCH (20:27)
[2018-08-12] MEDS ORDERED: ATORVASTATIN 20 MG TAB PO SCH (21:00)
--- NOTE | 2018-08-13 00:33 | CON ---
Reason For Consultation: Consultation called because of stroke. History Of Present Illness: Mr. Foy is a 67-year-old patient with multiple stroke risk factors in cluding a prior large stroke that impacted his left posterior circulation and producing a significant right homonymous hemianopsia. The patient was seen in February with that stroke. He did recover with fa irly good strength of his arms and legs. He did well until a few days ago when he was found to have generalized weakness and actually found down by his brother after he came back home. It is unknown h ow long the patient was down on the floor. He was unable to stand and ambulate and was unable to see . At [facility], he was brought in and had a CT scan of his head which showed no acute isch emic or hemorrhagic change. The chronic stroke was seen. However, subsequent brain MRI stroke hany col identified a large nonhemorrhagic stroke involving the right posterior medial temporal lobe with extension to the occipital region. In combination with the old stroke, the new stroke has rendered t he part of the brain. The primary visual cortex that is required for him to interpret any objects in front of him as useless as that area now as bilateral strokes. 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 Since his admission he has not had any additional weakness noted in his face, hi s arm, or his leg. He has been evaluated by the speech pathologist and is determined to not have asp iration risk. He is currently put on aspirin 81 mg daily, Plavix 75 mg daily along with Lovenox for DVT prophylaxis. His urinalysis on admission was suggestive of possible urinary tract infection, and he has been treated for that by primary care physician with levofloxacin. In addition his chest x-r ay did identify a right lower lobe pneumonia, and the antibiotic is covering that as well. Past Medical History: Stroke, hypertension. Allergies: NO KNOWN DRUG ALLERGIES. Medications At Home: Aspirin 81 mg daily, clonidine 0.2 mg daily, gabapentin 300 mg twice daily, lis inopril 10 mg daily, simvastatin 40 mg daily. Family History: Noncontributory. Social History: Smokes pack of cigarettes daily. Review of Systems: Unable to complete as the patient is not able to answer appropriately and requires multiple attempts to get him to follow simple commands. Physical Examination: Vital Signs: Blood pressure 174/94, pulse 84, respiratory rate 18, temperature 97.8, oxygen saturati on 99%. General: Mr. Foy is resting in bed. He is randomly pulling at the IV in his arm, going at his be d sheets and moving his arms and legs equally well. He does follow limited directions, but returns t o his random movements of arms and legs continuously. Heart: He has a regular heart rate. Decreased breath sounds bilaterally. Abdomen: Appears soft. No significant edema or cyanosis in the extremities. Neurologic: Neurologically he does respond to his name by head turning. He has a significant global aphasia. He has no ability to detect fingers and has light perception. His face is symmetric with good excursions on smiling. Tongue appears to be midline. Motor examination, unable to fully assess . However, he has at least 4+/5 strength bilaterally in the upper extremities, lower extremities at least 3+/5 bilaterally. Unable to follow any instructions with his arms and legs. Sensory exam unab le to perform, as patient is not giving appropriate responses. His reflexes are elevated in upper an d lower extremities, unable to assess his gait. Laboratory Studies: Complete blood count with differential is completely normal. Coagulation panel is completely normal. Chemistries on admission show slightly low potassium of 3.1, currently now 3.5 . Creatine kinase elevated to 10,565, suggesting the patient was down on the floor for a while. Yes terday on admission creatine kinase was 3194. AST elevated at 275, ALT normal at 51, alkaline phosph atase normal at 61. Cholesterol panel shows total cholesterol 140, LDL 71, HDL 51, cholesterol-HDL ratio 2.5. His TSH is 0.528. Procalcitonin less than 0.05. Assessment: Mr. Foy is a 67-year-old patient with multiple strokes and bilateral posterior circul ation. He has an acute stroke affecting the right posterior circulation producing dense loss of visu al field on the left and a chronic left posterior circulation stroke producing loss of perception on the right side. He has multiple stroke risk factors. He does have pneumonia. Plan: 1.Aspirin and Plavix along with folic acid 1 mg daily. 2.Lovenox 40 mg subcutaneously daily for DVT prophylaxis. 3.Continue with gabapentin 300 mg daily. 4.Please allow for permissive hypertension over the next 5 days to help save the patient's cortex an d subcortical region at risk for completion of stroke. 5.The patient is not a suitable candidate for acute inpatient rehabilitation as he is unable to foll ow instructions to perform 3 hours of physical, occupational, and speech therapy daily. The patient is appropriate for snf. PEDRO Voice ID: [id number] Report ID: [id number]
[2018-08-13] MEDS: NACHLORIDE 0.45% 1,000 ML IV SCH (04:59)
[2018-08-13] MEDS: METOPROLOL TAR 25 MG TAB PO SCH ×2 (05:17→17:44)
[2018-08-13 05:35] LABS: Absolute Lymphocytes (CBC) 1.8 K/uL (0.7-4.9); Absolute Monocytes 0.7 K/uL (0.1-1.3); Absolute Neutrophil 6.3 K/uL (1.8-8.0); Basophils % 0.3 % (0-1.3); Hematocrit 49.3 % (39.6-49.0); Lymphocytes % 19.8 % (15.3-44.8); MCH 33.1 pg (27.0-35.0); MCV 94.1 fL (80-100); MPV 8.1 fL (7.6-11.3); Monocytes % 7.9 % (3.3-12.3); RBC Red Blood Cell Count 5.23 M/uL (4.33-5.43)
[2018-08-13 05:45] LABS: BUN Blood Urea Nitrogen 7 mg/dL (7-18); Bicarbonate 24 mmol/L (21-32); Glucose Level 93 mg/dL (74-106); Potassium 3.2 mmol/L (3.5-5.1); Sodium Level 139 mmol/L (136-145)
[2018-08-13] MEDS ORDERED: POTASSIUM 25 MEQ EFFERV TAB PO ONE (05:48)
--- NOTE | 2018-08-13 08:05 | ECHO ---
HEIGHT: 5 ft 7 in WEIGHT: 156 lb 0 oz DATE OF STUDY: 08/12/[address]: Augustin Chavez DO 2-DIMENSIONAL: YES M.MODE: YES DOPPLER: YES COLOR FLOW: YES TDS: YES PORTABLE: DEFINITY: BUBBLE STUDY: DIAGNOSIS: CEREBRAL VASCULAR ACCIDENT, HYPERTENSION, HYPERLIPIDEMIA CARDIAC HISTORY: CATHERIZATION: NO SURGERY: NO PROSTHETIC VALVE: NO PACEMAKER: NO MEASUREMENTS (cm) DIASTOLIC (NORMALS) SYSTOLIC (NORMALS) IVSd 1.2 (0.6-1.2) LA Diam 3.7 (1.9-4.0) LVEF 60-65% LVIDd 3.6 (3.5-5.7) LVIDs 2.8 (2.0-3.5) %FS 15% LVPWd 1.2 (0.6-1.2) Ao Diam 2.9 (2.0-3.7) 2 DIMENSIONAL ASSESSMENT: RIGHT ATRIUM: NORMAL LEFT ATRIUM: NORMAL RIGHT VENTRICLE: NORMAL LEFT VENTRICLE: NORMAL TRICUSPID VALVE: NORMAL MITRAL VALVE: NORMAL PULMONIC VALVE: NORMAL AORTIC VALVE: SCLEROSIS PERICARDIAL EFFUSION: NORMAL AORTIC ROOT: NORMAL LEFT VENTRICULAR WALL MOTION: NORMAL DOPPLER/COLOR FLOW: MILD TRICUSPID REGURGITATION COMMENTS: NORMAL LEFT VENTRICULAR SIZE AND FUNCTION. AORTIC SCLEROSIS. MILD TRICUSPID REGURGITATION. TECHNICALLY DIFFICULT STUDY. NO THROMBUS OR VEGETATION. TECHNOLOGIST: DENISSE PETERSEN
[2018-08-13] MEDS: LISINOPRIL 10 MG TAB PO SCH (09:18)
[2018-08-13] MEDS: GABAPENTIN 300 MG CAP PO SCH ×2 (09:18→21:17)
[2018-08-13] MEDS: CLOPIDOGREL 75 MG TABLET PO SCH (09:18)
[2018-08-13] MEDS: Levofloxacin 750mg IV 750 MG/150 ML BAG IV SCH (09:18)
[2018-08-13] MEDS: ENOXAPARIN 40 MG/0.4 ML SQ SCH (09:18)
[2018-08-13] MEDS: ASPIRIN EC 81 MG TAB PO SCH (09:18)
--- NOTE | 2018-08-13 10:33 | P.PN ---
Subjective Date of Service: 08/13/18 Primary Care Provider: Dr Landis Chief Complaint: Fall Subjective: Other (Patient doing better this morning. No complaints noted.) Physical Examination - Vital Signs Temperature: 97.8 F Blood Pressure: 165/91 Pulse: 77 Respirations: 16 Pulse Ox (%): 95 - Physical Exam General: Alert, In no apparent distress, Cooperative HEENT: Atraumatic Neck: Supple Respiratory: Clear to auscultation bilaterally, Normal air movement Cardiovascular: Normal pulses, Regular rate/rhythm Gastrointestinal: Normal bowel sounds, Soft and benign, Non-distended, No tenderness, No masses, No rebound, No guarding Musculoskeletal: No erythema, No tenderness, No warmth Integumentary: No tenderness/swelling, No erythema, No warmth, No cyanosis Neurological: Normal speech, Normal strength at 5/5 x4 extr, Normal tone, Normal affect - Studies Microbiology Data (last 24 hrs): 08/11/18 08:10 Catheterized Urine Marshall Count - Final 08/11/18 08:10 Catheterized Urine - Final Medications List Reviewed: Yes Assessment & Plan Discharge Plan: Other (Skilled placement facility) Plan to discharge in: 24 Hours (to 48 hours) Physician Review Additional Text: Impression: Fall with acute rhabdomyolysis Weakness, confusion, fall secondary to Acute CVA with MRI showing large nonhemorrhagic CVA involving the medial right occipital lobe and portions of posterior medial right temporal lobe this corresponds with vascular distribution of the right posterior cerebral artery coming from the large greek professor communicating artery off of the internal carotid artery. Multiple sites of nonhemorrhagic acute CVA also noted in the right frontal and parietal lobes representing multiple branches of the right middle cerebral artery distribution. Baseline advanced atrophy and chronic ischemic changes noted. Right lower lobe pneumonia suspect aspiration Hypertension Hyperlipidemia Hypokalemia Plan: Fall with acute rhabdomyolysis: Will with IV fluids. Encourage oral intake. Will continue to have physical therapy assess ambulation. Patient will likely not be a candidate for inpatient rehab. Case discussed at length with family. Will pursue skilled placement. Family agrees. Continue with physical therapy, occupational therapy and speech. Weakness, confusion, fall secondary to Acute CVA with MRI showing large nonhemorrhagic CVA involving the medial right occipital lobe and portions of posterior medial right temporal lobe this corresponds with vascular distribution of the right posterior cerebral artery coming from the large greek professor communicating artery off of the internal carotid artery. Multiple sites of nonhemorrhagic acute CVA also noted in the right frontal and parietal lobes representing multiple branches of the right middle cerebral artery distribution. Baseline advanced atrophy and chronic ischemic changes noted: Patient currently on aspirin 81 mg daily, Plavix 75 mg daily and Lipitor 40 mg daily. Patient on DVT prophylaxis-Lovenox 40 mg daily. Blood pressure medication adjusted yesterday. Patient currently on lisinopril 10 mg daily and metoprolol 25 mg 1 pill twice daily. Will maintain blood pressure systolic around 160-180. This will need to be monitored and adjusted closely over the next several days. Case discussed with Neurology yesterday. Patient not likely a good candidate for inpatient rehab. Will continue to pursue skilled placement. Will continue with physical therapy, occupational therapy and speech. Case discussed at length with patient and family. Anticipate discharge to skilled placement facility in the next 24-48 hr. Echocardiogram and carotid Doppler unremarkable. Right lower lobe pneumonia suspect aspiration: Patient started on antibiotic therapy-Levaquin. Will change Levaquin to oral. Aspiration precautions in place. Will maintain sats above 90%. Hypertension: Patient currently on lisinopril 10 mg daily and metoprolol 25 mg 1 pill twice daily.Will maintain blood pressures around 160-180 systolic for the next 5 days. Will need to adjust slowly due to acute CVA affecting multiple areas. Hyperlipidemia: Patient currently on Lipitor 40 mg daily. Will continue with above plan of care. Hypokalemia: Will continue to adjust and replace appropriately. Time Spent Managing Pts Care (In Minutes): 55
[2018-08-13] MEDS: ACETAMINOPHEN 500 MG TAB PO PRN (16:37)
[2018-08-13] MEDS: HYDRALAZINE HCL 20 MG/ML VIAL IV PRN (21:17)
[2018-08-13] MEDS: ATORVASTATIN 40 MG TAB PO SCH (21:17)
[2018-08-14] MEDS ORDERED: LORazepam 2 MG/ML VIAL IV ONE (01:17)
[2018-08-14 06:10] LABS: Absolute Lymphocytes (CBC) 2.1 K/uL (0.7-4.9); Absolute Monocytes 0.8 K/uL (0.1-1.3); Absolute Neutrophil 5.1 K/uL (1.8-8.0); Basophils % 0.4 % (0-1.3); Eosinophils % 2.2 % (0-4.4); Hematocrit 47.2 % (39.6-49.0); MCH 33.2 pg (27.0-35.0); MCV 94.2 fL (80-100); MPV 8.2 fL (7.6-11.3); Monocytes % 10.2 % (3.3-12.3); RBC Red Blood Cell Count 5.01 M/uL (4.33-5.43)
[2018-08-14 06:11] LABS: BUN Blood Urea Nitrogen 12 mg/dL (7-18); Bicarbonate 23 mmol/L (21-32); Glucose Level 95 mg/dL (74-106); Magnesium 2.1 mg/dL (1.8-2.4); Phosphorus 3.6 mg/dL (2.5-4.9); Potassium 3.3 mmol/L (3.5-5.1); Sodium Level 139 mmol/L (136-145)
[2018-08-14] MEDS ORDERED: POTASSIUM 25 MEQ EFFERV TAB PO ONE ×2 (06:28→21:00)
[2018-08-14] MEDS: METOPROLOL TAR 25 MG TAB PO SCH ×2 (07:37→18:00)
--- NOTE | 2018-08-14 08:53 | P.PN ---
Subjective Date of Service: 08/14/18 Primary Care Provider: Dr Landis Chief Complaint: Fall Subjective: Other (Patient continues to improve.) Physical Examination - Vital Signs Temperature: 98.0 F Blood Pressure: 160/86 Pulse: 80 Respirations: 19 Pulse Ox (%): 98 - Physical Exam General: Alert, In no apparent distress, Cooperative HEENT: Atraumatic Neck: Supple Respiratory: Clear to auscultation bilaterally, Normal air movement Cardiovascular: Normal pulses, Regular rate/rhythm Gastrointestinal: Normal bowel sounds, Soft and benign, Non-distended, No masses , No rebound, No guarding Musculoskeletal: No erythema, No tenderness, No warmth Integumentary: No tenderness/swelling, No erythema, No warmth, No cyanosis Neurological: Normal speech, Normal strength at 5/5 x4 extr, Normal tone, Normal affect - Studies Microbiology Data (last 24 hrs): 08/11/18 08:10 Catheterized Urine Thelma Count - Final 08/11/18 08:10 Catheterized Urine - Final Medications List Reviewed: Yes Assessment & Plan Discharge Plan: Other (Skilled placement facility) Plan to discharge in: 48 Hours Physician Review Additional Text: Impression: Fall with acute rhabdomyolysis Weakness, confusion, fall secondary to Acute CVA with MRI showing large nonhemorrhagic CVA involving the medial right occipital lobe and portions of posterior medial right temporal lobe this corresponds with vascular distribution of the right posterior cerebral artery coming from the large commercial announcer communicating artery off of the internal carotid artery. Multiple sites of nonhemorrhagic acute CVA also noted in the right frontal and parietal lobes representing multiple branches of the right middle cerebral artery distribution. Baseline advanced atrophy and chronic ischemic changes noted. Right lower lobe pneumonia suspect aspiration Hypertension Hyperlipidemia Hypokalemia Plan: Fall with acute rhabdomyolysis: Will continue with IV fluids. Patient improving. Continue with good oral intake. Will continue to have physical therapy assess ambulation. Awaiting skilled placement facility approval. This will likely occur Thursday. Continue with physical therapy, occupational therapy and speech. Weakness, confusion, fall secondary to Acute CVA with MRI showing large nonhemorrhagic CVA involving the medial right occipital lobe and portions of posterior medial right temporal lobe this corresponds with vascular distribution of the right posterior cerebral artery coming from the large commercial announcer communicating artery off of the internal carotid artery. Multiple sites of nonhemorrhagic acute CVA also noted in the right frontal and parietal lobes representing multiple branches of the right middle cerebral artery distribution. Baseline advanced atrophy and chronic ischemic changes noted: Patient currently on aspirin 81 mg daily, Plavix 75 mg daily and Lipitor 40 mg daily. Patient on DVT prophylaxis-Lovenox 40 mg daily. Patient continues to improve. Patient currently on lisinopril 10 mg daily and metoprolol 25 mg 1 pill twice daily. Will maintain blood pressure systolic around 160-180. This will need to be monitored and adjusted closely over the next several days. Case has been discussed with Neurology. Await approval for the patient to be transferred to skilled placement facility. This will likely occur on Thursday. Continue with current plan of care. Echocardiogram and carotid Doppler unremarkable. Right lower lobe pneumonia suspect aspiration: Patient started on antibiotic therapy-Levaquin. Aspiration precautions in place. Will maintain sats above 90 %. Hypertension: Patient currently on lisinopril 10 mg daily and metoprolol 25 mg 1 pill twice daily. Will maintain blood pressures around 160-180 systolic for the next 5 days. Will need to adjust slowly due to acute CVA affecting multiple areas. Hyperlipidemia: Patient currently on Lipitor 40 mg daily. Will continue with above plan of care. Hypokalemia: Will continue to adjust and replace appropriately. Time Spent Managing Pts Care (In Minutes): 55
[2018-08-14] MEDS: GABAPENTIN 300 MG CAP PO SCH ×2 (09:12→22:23)
[2018-08-14] MEDS: levoFLOXacin 500 MG TAB PO SCH (09:12)
[2018-08-14] MEDS: ASPIRIN EC 81 MG TAB PO SCH (09:13)
[2018-08-14] MEDS: LISINOPRIL 10 MG TAB PO SCH (09:13)
[2018-08-14] MEDS: CLOPIDOGREL 75 MG TABLET PO SCH (09:13)
[2018-08-14] MEDS: ENOXAPARIN 40 MG/0.4 ML SQ SCH (09:14)
[2018-08-14] MEDS: ACETAMINOPHEN 500 MG TAB PO PRN (10:37)
[2018-08-14] MEDS: ATORVASTATIN 40 MG TAB PO SCH (22:23)
[2018-08-15] MEDS: TAMSULOSIN 0.4 MG SR CAP PO SCH ×2 (00:39→21:55)
[2018-08-15 05:27] LABS: Absolute Lymphocytes (CBC) 1.7 K/uL (0.7-4.9); Absolute Monocytes 0.8 K/uL (0.1-1.3); Absolute Neutrophil 5.9 K/uL (1.8-8.0); Basophils % 0.2 % (0-1.3); Eosinophils % 1.4 % (0-4.4); Hematocrit 48.6 % (39.6-49.0); Lymphocytes % 19.5 % (15.3-44.8); MCV 94.4 fL (80-100); MPV 7.9 fL (7.6-11.3); Monocytes % 8.9 % (3.3-12.3); RBC Red Blood Cell Count 5.15 M/uL (4.33-5.43)
[2018-08-15] MEDS: METOPROLOL TAR 25 MG TAB PO SCH ×2 (05:37→18:00)
[2018-08-15 05:49] LABS: BUN Blood Urea Nitrogen 14 mg/dL (7-18); Bicarbonate 24 mmol/L (21-32); Glucose Level 90 mg/dL (74-106); Magnesium 2.2 mg/dL (1.8-2.4); Potassium 3.7 mmol/L (3.5-5.1); Sodium Level 138 mmol/L (136-145)
[2018-08-15] MEDS ORDERED: POTASSIUM 25 MEQ EFFERV TAB PO ONE (09:00)
[2018-08-15] MEDS: ENOXAPARIN 40 MG/0.4 ML SQ SCH (09:05)
[2018-08-15] MEDS: levoFLOXacin 500 MG TAB PO SCH (09:06)
[2018-08-15] MEDS: CLOPIDOGREL 75 MG TABLET PO SCH (09:06)
[2018-08-15] MEDS: GABAPENTIN 300 MG CAP PO SCH ×2 (09:06→21:55)
[2018-08-15] MEDS: LISINOPRIL 10 MG TAB PO SCH (09:06)
[2018-08-15] MEDS: ASPIRIN EC 81 MG TAB PO SCH (09:07)
--- NOTE | 2018-08-15 09:08 | RAD REPORT ---
EXAM DESCRIPTION: CT - Head Brain Wo Cont - 08/15/2018 7:13 am CLINICAL HISTORY: Fall, head injury, history of CVA A preliminary report was provided at the time of the study and reviewed prior to final report. COMPARISON: MRI August 11, CT head August 11 TECHNIQUE: Axial 5 mm thick images of the head were obtained without IV contrast. All CT scans are performed using dose optimization technique as appropriate and may include automated exposure control or mA/KV adjustment according to patient size. FINDINGS: No intracranial hemorrhage, mass, edema or shift of mid-line structures. Old medial left o ccipital lobe CVA changes are present. Recently diagnosed right occipital lobe, medial temporal lobe and smaller frontal parietal CVA changes are again noted. No convincing evidence for further extensio n of the stroke boundaries. No progressive cortical edema or sulcal effacement. Ventricles remain in proportion to pre-existing moderate volume loss. Mastoid air cells and visualized portions of the paranasal sinuses are clear. No acute bony findings. IMPRESSION: No intracranial hemorrhage has developed. No new or progressive mass effect or edema fro m recently diagnosed right cerebral CVA changes.
--- NOTE | 2018-08-15 09:57 | P.PN ---
Subjective Date of Service: 08/15/18 Primary Care Provider: Dr Landis Chief Complaint: Fall Subjective: Other (Patient fell yesterday with brother present. Patient also had some mild urinary retention) Physical Examination - Vital Signs Temperature: 98.2 F Blood Pressure: 142/72 Pulse: 102 Respirations: 18 Pulse Ox (%): 100 - Physical Exam General: Alert, Cooperative HEENT: Atraumatic Neck: Supple Respiratory: Clear to auscultation bilaterally, Normal air movement Cardiovascular: Normal pulses, Regular rate/rhythm Gastrointestinal: Normal bowel sounds, Soft and benign, Non-distended, No tenderness, No masses, No rebound, No guarding Musculoskeletal: No erythema, No tenderness, No warmth Integumentary: No tenderness/swelling, No erythema, No warmth, No cyanosis Neurological: Normal speech, Normal strength at 5/5 x4 extr, Normal tone - Studies Medications List Reviewed: Yes Assessment & Plan Discharge Plan: Other (nursing home facility) Plan to discharge in: 24 Hours Physician Review Additional Text: Impression: Fall with acute rhabdomyolysis Weakness, confusion, fall secondary to Acute CVA with MRI showing large nonhemorrhagic CVA involving the medial right occipital lobe and portions of posterior medial right temporal lobe this corresponds with vascular distribution of the right posterior cerebral artery coming from the large biofuels production manager communicating artery off of the internal carotid artery. Multiple sites of nonhemorrhagic acute CVA also noted in the right frontal and parietal lobes representing multiple branches of the right middle cerebral artery distribution. Baseline advanced atrophy and chronic ischemic changes noted. Right lower lobe pneumonia suspect aspiration Hypertension Hyperlipidemia Hypokalemia Urinary retention likely secondary to BPH Plan: Fall with acute rhabdomyolysis: Will continue with physical therapy. Patient still requires help with ambulation. Patient being evaluated for skilled placement facility. Will recheck CPK. Encourage oral intake. Patient fell again yesterday. Repeat CT scan unremarkable. Continue fall precaution. Weakness, confusion, fall secondary to Acute CVA with MRI showing large nonhemorrhagic CVA involving the medial right occipital lobe and portions of posterior medial right temporal lobe this corresponds with vascular distribution of the right posterior cerebral artery coming from the large biofuels production manager communicating artery off of the internal carotid artery. Multiple sites of nonhemorrhagic acute CVA also noted in the right frontal and parietal lobes representing multiple branches of the right middle cerebral artery distribution. Baseline advanced atrophy and chronic ischemic changes noted: Patient currently on aspirin 81 mg daily, Plavix 75 mg daily and Lipitor 40 mg daily. Patient on DVT prophylaxis-Lovenox 40 mg daily. Patient continues to improve slowly. Patient currently on lisinopril 10 mg daily and metoprolol 25 mg 1 pill twice daily. Will maintain blood pressure systolic around 160-180. This will need to be monitored and adjusted closely over the next several days. Case has been discussed with Neurology. Await approval for the patient to be transferred to skilled placement facility. This will likely occur on Thursday. Continue with physical therapy. Fall precautions in place. Echocardiogram and carotid Doppler unremarkable. Right lower lobe pneumonia suspect aspiration: Patient started on antibiotic therapy-Levaquin. Aspiration precautions in place. Will maintain sats above 90 %. Hypertension: Patient currently on lisinopril 10 mg daily and metoprolol 25 mg 1 pill twice daily. Will maintain blood pressures around 160-180 systolic for the next 5 days. Will need to adjust slowly due to acute CVA affecting multiple areas. Hyperlipidemia: Patient currently on Lipitor 40 mg daily. Will continue with above plan of care. Hypokalemia: Will continue to adjust and replace appropriately. Urinary retention likely secondary to BPH: Patient had some mild retention. Likely related to BPH. Flomax started last night. Will monitor closely. Time Spent Managing Pts Care (In Minutes): 55
[2018-08-15] MEDS: LORazepam 2 MG/ML VIAL IV PRN (11:27)
[2018-08-15] MEDS: ATORVASTATIN 40 MG TAB PO SCH (21:55)
[2018-08-16] MEDS: LORazepam 2 MG/ML VIAL IV PRN (03:33)
[2018-08-16 05:36] LABS: BUN Blood Urea Nitrogen 11 mg/dL (7-18); Bicarbonate 25 mmol/L (21-32); Glucose Level 99 mg/dL (74-106); Potassium 3.9 mmol/L (3.5-5.1); Sodium Level 138 mmol/L (136-145)
[2018-08-16] MEDS: METOPROLOL TAR 25 MG TAB PO SCH ×2 (06:00→17:55)
[2018-08-16] MEDS ORDERED: POTASSIUM CL SA 10 MEQ TAB PO ONE (09:00)
[2018-08-16] MEDS: ENOXAPARIN 40 MG/0.4 ML SQ SCH (09:11)
[2018-08-16] MEDS: LISINOPRIL 10 MG TAB PO SCH (09:11)
[2018-08-16] MEDS: levoFLOXacin 500 MG TAB PO SCH (09:12)
[2018-08-16] MEDS: GABAPENTIN 300 MG CAP PO SCH ×2 (09:12→20:01)
[2018-08-16] MEDS: CLOPIDOGREL 75 MG TABLET PO SCH (09:12)
[2018-08-16] MEDS: ASPIRIN EC 81 MG TAB PO SCH (09:12)
--- NOTE | 2018-08-16 15:48 | P.PN ---
Subjective Date of Service: 08/16/18 Primary Care Provider: Dr Landis Chief Complaint: Fall Subjective: Other (Patient stable.) Physical Examination - Vital Signs Temperature: 96.9 F Blood Pressure: 139/68 Pulse: 66 Respirations: 18 Pulse Ox (%): 97 - Physical Exam General: Alert, Cooperative HEENT: Atraumatic Neck: Supple Respiratory: Clear to auscultation bilaterally, Normal air movement Cardiovascular: Normal pulses, Regular rate/rhythm Gastrointestinal: Normal bowel sounds, Soft and benign, Non-distended Musculoskeletal: No tenderness, No warmth Integumentary: No erythema, No warmth, No cyanosis Neurological: Normal speech, Normal strength at 5/5 x4 extr, Normal tone - Studies Microbiology Data (last 24 hrs): 08/11/18 07:40 Blood - Blood Aerobic Blood Culture - Final No growth in 5 days. 08/11/18 07:40 Blood - Blood Anaerobic Blood Culture - Final No growth in 5 days. 08/11/18 07:19 Blood - Blood Aerobic Blood Culture - Final No growth in 5 days. 08/11/18 07:19 Blood - Blood Anaerobic Blood Culture - Final No growth in 5 days. Medications List Reviewed: Yes Assessment & Plan Discharge Plan: Other (Skilled placement facility) Plan to discharge in: 24 Hours Physician Review Additional Text: Impression: Fall with acute rhabdomyolysis Weakness, confusion, fall secondary to Acute CVA with MRI showing large nonhemorrhagic CVA involving the medial right occipital lobe and portions of posterior medial right temporal lobe this corresponds with vascular distribution of the right posterior cerebral artery coming from the large donor services specialist communicating artery off of the internal carotid artery. Multiple sites of nonhemorrhagic acute CVA also noted in the right frontal and parietal lobes representing multiple branches of the right middle cerebral artery distribution. Baseline advanced atrophy and chronic ischemic changes noted. Right lower lobe pneumonia suspect aspiration Hypertension Hyperlipidemia Hypokalemia Urinary retention likely secondary to BPH Plan: Fall with acute rhabdomyolysis: Will continue with physical therapy. Patient still requires help with ambulation. Awaiting approval for skilled placement facility. Repeat CPK improved. Encourage ambulation. Medically stable for discharge to skilled facility Weakness, confusion, fall secondary to Acute CVA with MRI showing large nonhemorrhagic CVA involving the medial right occipital lobe and portions of posterior medial right temporal lobe this corresponds with vascular distribution of the right posterior cerebral artery coming from the large donor services specialist communicating artery off of the internal carotid artery. Multiple sites of nonhemorrhagic acute CVA also noted in the right frontal and parietal lobes representing multiple branches of the right middle cerebral artery distribution. Baseline advanced atrophy and chronic ischemic changes noted: Patient currently on aspirin 81 mg daily, Plavix 75 mg daily and Lipitor 40 mg daily. Patient on DVT prophylaxis-Lovenox 40 mg daily. Patient continues to improve slowly. Patient currently on lisinopril 10 mg daily and metoprolol 25 mg 1 pill twice daily. Will maintain blood pressure systolic around 160-180. This will need to be monitored and adjusted closely over the next several days. Case has been discussed with Neurology. Await approval for the patient to be transferred to skilled placement facility. Continue with physical therapy. Fall precautions in place. Echocardiogram and carotid Doppler unremarkable. Right lower lobe pneumonia suspect aspiration: Patient started on antibiotic therapy-Levaquin, will continue for total 7 days. Aspiration precautions in place. Will maintain sats above 90%. Hypertension: Patient currently on lisinopril 10 mg daily and metoprolol 25 mg 1 pill twice daily. Will maintain blood pressures around 160-180 systolic for the next 5 days. Will need to adjust slowly due to acute CVA affecting multiple areas. Hyperlipidemia: Patient currently on Lipitor 40 mg daily. Will continue with above plan of care. Hypokalemia: Will continue to adjust and replace appropriately. Urinary retention likely secondary to BPH: Patient had some mild retention. Likely related to BPH. Flomax started. Will monitor closely. I will turn the service over to Dr. Overton tomorrow. I will go over the plan of care with her. Time Spent Managing Pts Care (In Minutes): 55
[2018-08-16] MEDS: TAMSULOSIN 0.4 MG SR CAP PO SCH (20:00)
[2018-08-16] MEDS: ATORVASTATIN 40 MG TAB PO SCH (20:01)
[2018-08-17] MEDS: METOPROLOL TAR 25 MG TAB PO SCH ×2 (05:47→17:32)
[2018-08-17 06:48] LABS: BUN Blood Urea Nitrogen 11 mg/dL (7-18); Bicarbonate 23 mmol/L (21-32); Glucose Level 98 mg/dL (74-106); Potassium 3.6 mmol/L (3.5-5.1); Sodium Level 141 mmol/L (136-145)
[2018-08-17] MEDS: LISINOPRIL 10 MG TAB PO SCH (09:00)
[2018-08-17] MEDS: ASPIRIN EC 81 MG TAB PO SCH (09:32)
[2018-08-17] MEDS: levoFLOXacin 500 MG TAB PO SCH (09:32)
[2018-08-17] MEDS: CLOPIDOGREL 75 MG TABLET PO SCH (09:32)
[2018-08-17] MEDS: ENOXAPARIN 40 MG/0.4 ML SQ SCH (09:32)
[2018-08-17] MEDS: GABAPENTIN 300 MG CAP PO SCH ×2 (09:32→20:17)
--- NOTE | 2018-08-17 13:21 | P.PN ---
Subjective Date of Service: 08/17/18 Primary Care Provider: Dr Landis Chief Complaint: Fall Patient seen and examined at bedside with RN. Chart reviewed. Case discussed with neurology. Currently patient is awaiting placement at [facility]. No complaints to offer overall. Review of Systems 10-point ROS is otherwise unremarkable Physical Examination - Vital Signs Temperature: 98.2 F Blood Pressure: 128/81 Pulse: 102 Respirations: 18 Pulse Ox (%): 98 - Physical Exam General: Alert, In no apparent distress HEENT: Atraumatic, PERRLA, EOMI Neck: Supple, JVD not distended Respiratory: Clear to auscultation bilaterally, Normal air movement Cardiovascular: Regular rate/rhythm, Normal S1 S2 Gastrointestinal: Normal bowel sounds, No tenderness Musculoskeletal: No tenderness Integumentary: No rashes Neurological: Normal speech, Normal tone, Normal affect Lymphatics: No axilla or inguinal lymphadenopathy - Studies Medications List Reviewed: Yes Assessment & Plan - Problems (Diagnosis) (1) Acute ischemic stroke Current Visit: No Status: Acute Plan: Acute CVA -MRI showing large CVA involving the medial right occipital lobe and portions of posterior medial right temporal lobe -Patient currently on aspirin 81 mg daily, Plavix 75 mg daily and Lipitor 40 mg daily. -Neurology consulted. Appreciate reccs -Pending Placement at this time. -Echocardiogram and carotid Doppler unremarkable. (2) Community acquired pneumonia Onset Date: 02/24/18 Current Visit: No Status: Acute Plan: Most Likely aspiration PNA. -On Levaquin for now -Improving Qualifiers: Laterality: unspecified laterality Qualified Code(s): J18.9 - Pneumonia, unspecified organism (3) Rhabdomyolysis Current Visit: Yes Status: Resolved Plan: Resolved now -IV fluids stopped now -Kidney function WNL and CK trending down Qualifiers: Rhabdomyolysis type: non-traumatic Qualified Code(s): M62.82 - Rhabdomyolysis (4) Fall Current Visit: Yes Status: Acute Plan: S/P Fall. Most likely 2.2 to Acute CVA -PT consulted. Appreciated Reccs -Fall precautions Qualifiers: Encounter type: initial encounter Qualified Code(s): W19.XXXA - Unspecified fall, initial encounter (5) Essential hypertension Onset Date: 02/24/18 Current Visit: No Status: Chronic (6) Hyperlipidemia Current Visit: No Status: Chronic Qualifiers: Hyperlipidemia type: mixed hyperlipidemia Qualified Code(s): E78.2 - Mixed hyperlipidemia Discharge Plan: [facility] Plan to discharge in: 48 Hours - Code Status/Comfort Care Code Status Assessed: Yes Critical Care: No
[2018-08-17] MEDS: TAMSULOSIN 0.4 MG SR CAP PO SCH (20:17)
[2018-08-17] MEDS: ATORVASTATIN 40 MG TAB PO SCH (20:17)
[2018-08-17] MEDS: LORazepam 2 MG/ML VIAL IV PRN (21:41)
[2018-08-18] MEDS: HYDRALAZINE HCL 20 MG/ML VIAL IV PRN (03:46)
[2018-08-18] MEDS: METOPROLOL TAR 25 MG TAB PO SCH ×2 (05:07→17:40)
[2018-08-18 05:37] LABS: BUN Blood Urea Nitrogen 13 mg/dL (7-18); Bicarbonate 23 mmol/L (21-32); Glucose Level 95 mg/dL (74-106); Phosphorus 3.2 mg/dL (2.5-4.9); Potassium 3.5 mmol/L (3.5-5.1); Sodium Level 140 mmol/L (136-145)
[2018-08-18] MEDS ORDERED: POTASSIUM CL SA 10 MEQ TAB PO ONE (05:42)
[2018-08-18] MEDS: ENOXAPARIN 40 MG/0.4 ML SQ SCH (09:17)
[2018-08-18] MEDS: levoFLOXacin 500 MG TAB PO SCH (09:18)
[2018-08-18] MEDS: ASPIRIN EC 81 MG TAB PO SCH (09:18)
[2018-08-18] MEDS: GABAPENTIN 300 MG CAP PO SCH ×2 (09:18→20:09)
[2018-08-18] MEDS: CLOPIDOGREL 75 MG TABLET PO SCH (09:18)
[2018-08-18] MEDS: LISINOPRIL 10 MG TAB PO SCH (09:20)
--- NOTE | 2018-08-18 12:25 | P.PN ---
Subjective Date of Service: 08/18/18 Primary Care Provider: Dr Landis Chief Complaint: Fall Patient seen and examined at bedside with RN. Chart reviewed. Case discussed with neurology. Currently patient is awaiting placement at [facility]. No complaints to offer overall. Review of Systems 10-point ROS is otherwise unremarkable Physical Examination - Vital Signs Temperature: 98.3 F Blood Pressure: 140/71 Pulse: 99 Respirations: 18 Pulse Ox (%): 96 - Physical Exam General: Alert, In no apparent distress HEENT: Atraumatic, PERRLA, EOMI Neck: Supple, JVD not distended Respiratory: Clear to auscultation bilaterally, Normal air movement Cardiovascular: Regular rate/rhythm, Normal S1 S2 Gastrointestinal: Normal bowel sounds, No tenderness Musculoskeletal: No tenderness Integumentary: No rashes Neurological: Normal speech, Normal tone, Normal affect Lymphatics: No axilla or inguinal lymphadenopathy - Studies Medications List Reviewed: Yes Assessment And Plan - Current Problems (Diagnosis) (1) Acute ischemic stroke Current Visit: No Status: Acute Plan: Acute CVA -MRI showing large CVA involving the medial right occipital lobe and portions of posterior medial right temporal lobe -Patient currently on aspirin 81 mg daily, Plavix 75 mg daily and Lipitor 40 mg daily. -Neurology consulted. Appreciate reccs -Pending Placement at this time. -Echocardiogram and carotid Doppler unremarkable. (2) Community acquired pneumonia Onset Date: 02/24/18 Current Visit: No Status: Acute Plan: Most Likely aspiration PNA. -On Levaquin for now -Improving Qualifiers: Laterality: unspecified laterality Qualified Code(s): J18.9 - Pneumonia, unspecified organism (3) Rhabdomyolysis Current Visit: Yes Status: Resolved Plan: Resolved now -IV fluids stopped now -Kidney function WNL and CK trending down Qualifiers: Rhabdomyolysis type: non-traumatic Qualified Code(s): M62.82 - Rhabdomyolysis (4) Fall Current Visit: Yes Status: Acute Plan: S/P Fall. Most likely 2.2 to Acute CVA -PT consulted. Appreciated Reccs -Fall precautions Qualifiers: Encounter type: initial encounter Qualified Code(s): W19.XXXA - Unspecified fall, initial encounter (5) Essential hypertension Onset Date: 02/24/18 Current Visit: No Status: Chronic Plan: Restart home medication (6) Hyperlipidemia Current Visit: No Status: Chronic Plan: Hold home medication at this time as that can induce worsening of rhabdomyolysis Qualifiers: Hyperlipidemia type: mixed hyperlipidemia Qualified Code(s): E78.2 - Mixed hyperlipidemia Discharge Plan: Residential Plan to discharge in: 24 Hours - Code Status/Comfort Care Code Status Assessed: Yes Critical Care: No
[2018-08-18] MEDS: TAMSULOSIN 0.4 MG SR CAP PO SCH (20:08)
[2018-08-18] MEDS: ATORVASTATIN 40 MG TAB PO SCH (20:08)
[2018-08-18] MEDS ORDERED: ZIPRASIDONE MESYLA 20 MG/VIAL IM PRN (20:13)
[2018-08-18] MEDS ORDERED: WATER FOR INJ,STERILE 10 ML IM PRN (20:13)
[2018-08-18] MEDS ORDERED: ZIPRASIDONE MESYLA 20 MG/VIAL IM ONE (20:20)
[2018-08-19] MEDS: METOPROLOL TAR 25 MG TAB PO SCH ×2 (04:26→17:18)
[2018-08-19 05:32] LABS: BUN Blood Urea Nitrogen 16 mg/dL (7-18); Bicarbonate 24 mmol/L (21-32); Glucose Level 105 mg/dL (74-106); Potassium 3.6 mmol/L (3.5-5.1); Sodium Level 142 mmol/L (136-145)
[2018-08-19] MEDS ORDERED: POTASSIUM 25 MEQ EFFERV TAB PO ONE (05:54)
[2018-08-19] MEDS: levoFLOXacin 500 MG TAB PO SCH (08:02)
[2018-08-19] MEDS: ENOXAPARIN 40 MG/0.4 ML SQ SCH (08:02)
[2018-08-19] MEDS: GABAPENTIN 300 MG CAP PO SCH ×2 (08:02→19:39)
[2018-08-19] MEDS: FOLIC ACID 1 MG TABLET PO SCH (08:03)
[2018-08-19] MEDS: LISINOPRIL 10 MG TAB PO SCH (08:03)
[2018-08-19] MEDS: CLOPIDOGREL 75 MG TABLET PO SCH (08:03)
[2018-08-19] MEDS: ASPIRIN EC 81 MG TAB PO SCH (08:03)
--- NOTE | 2018-08-19 12:37 | P.PN ---
Subjective Date of Service: 08/19/18 Primary Care Provider: Dr Landis Chief Complaint: Fall Patient seen and examined at bedside with RN. Chart reviewed. Case discussed with neurology. Patient initially was going to go to [facility] Medicaid pending. Now there is a referral pending for [facility] Review of Systems 10-point ROS is otherwise unremarkable Physical Examination - Vital Signs Temperature: 98.4 F Blood Pressure: 104/66 Pulse: 98 Respirations: 18 Pulse Ox (%): 99 - Physical Exam General: Alert, In no apparent distress, Confused HEENT: Atraumatic, PERRLA, EOMI Neck: Supple, JVD not distended Respiratory: Clear to auscultation bilaterally, Normal air movement Cardiovascular: Regular rate/rhythm, Normal S1 S2 Gastrointestinal: Normal bowel sounds, No tenderness Musculoskeletal: No tenderness Integumentary: No rashes Neurological: Normal speech, Normal tone, Normal affect Lymphatics: No axilla or inguinal lymphadenopathy - Studies Medications List Reviewed: Yes Assessment And Plan - Current Problems (Diagnosis) (1) Acute ischemic stroke Current Visit: No Status: Acute Plan: Acute CVA -MRI showing large CVA involving the medial right occipital lobe and portions of posterior medial right temporal lobe -Patient currently on aspirin 81 mg daily, Plavix 75 mg daily and Lipitor 40 mg daily. -Neurology consulted. Appreciate reccs -Echocardiogram and carotid Doppler unremarkable. -Pending Placement at this time. (2) Community acquired pneumonia Onset Date: 02/24/18 Current Visit: No Status: Acute Plan: Most Likely aspiration PNA. -On Levaquin for now 5/14 days -Improving Qualifiers: Laterality: unspecified laterality Qualified Code(s): J18.9 - Pneumonia, unspecified organism (3) Rhabdomyolysis Current Visit: Yes Status: Resolved Plan: Resolved now Qualifiers: Rhabdomyolysis type: non-traumatic Qualified Code(s): M62.82 - Rhabdomyolysis (4) Fall Current Visit: Yes Status: Acute Plan: S/P Fall. Most likely 2.2 to Acute CVA -PT consulted. Appreciated Reccs -Fall precautions Qualifiers: Encounter type: initial encounter Qualified Code(s): W19.XXXA - Unspecified fall, initial encounter (5) Essential hypertension Onset Date: 02/24/18 Current Visit: No Status: Chronic Plan: Restart home medication (6) Hyperlipidemia Current Visit: No Status: Chronic Plan: Hold home medication at this time as that can induce worsening of rhabdomyolysis Qualifiers: Hyperlipidemia type: mixed hyperlipidemia Qualified Code(s): E78.2 - Mixed hyperlipidemia - Plan The patient pending placement at this time. Discharge Plan: Shelter Plan to discharge in: 24 Hours - Code Status/Comfort Care Code Status Assessed: Yes Critical Care: No
[2018-08-19] MEDS: ACETAMINOPHEN 500 MG TAB PO PRN ×2 (15:37→19:56)
[2018-08-19] MEDS: TAMSULOSIN 0.4 MG SR CAP PO SCH (19:39)
[2018-08-19] MEDS: ATORVASTATIN 40 MG TAB PO SCH (19:39)
[2018-08-20] MEDS: METOPROLOL TAR 25 MG TAB PO SCH ×2 (05:26→17:03)
[2018-08-20 06:56] LABS: BUN Blood Urea Nitrogen 22 mg/dL (7-18); Bicarbonate 23 mmol/L (21-32); Glucose Level 91 mg/dL (74-106); Magnesium 2.4 mg/dL (1.8-2.4); Phosphorus 3.3 mg/dL (2.5-4.9); Potassium 3.7 mmol/L (3.5-5.1); Sodium Level 142 mmol/L (136-145)
[2018-08-20] MEDS: FOLIC ACID 1 MG TABLET PO SCH (08:14)
[2018-08-20] MEDS: ASPIRIN EC 81 MG TAB PO SCH (08:14)
[2018-08-20] MEDS: GABAPENTIN 300 MG CAP PO SCH ×2 (08:15→20:05)
[2018-08-20] MEDS: ENOXAPARIN 40 MG/0.4 ML SQ SCH (08:15)
[2018-08-20] MEDS: levoFLOXacin 500 MG TAB PO SCH (08:15)
[2018-08-20] MEDS: LISINOPRIL 10 MG TAB PO SCH (08:16)
[2018-08-20] MEDS: CLOPIDOGREL 75 MG TABLET PO SCH (08:16)
[2018-08-20] MEDS ORDERED: POTASSIUM CL SA 10 MEQ TAB PO ONE (09:00)
[2018-08-20] MEDS: ACETAMINOPHEN 500 MG TAB PO PRN ×2 (09:36→20:05)
--- NOTE | 2018-08-20 13:28 | P.PN ---
Subjective Date of Service: 08/20/18 Primary Care Provider: Dr Landis Chief Complaint: Fall Patient seen and examined at bedside with RN. Chart reviewed. Case discussed with neurology. Patient initially was going to go to [facility] Medicaid pending. Now there is a referral pending for [facility] nursing [facility] Review of Systems 10-point ROS is otherwise unremarkable Physical Examination - Vital Signs Temperature: 98.1 F Blood Pressure: 134/67 Pulse: 113 Respirations: 18 Pulse Ox (%): 95 - Physical Exam General: Alert, In no apparent distress, Oriented x2 HEENT: Atraumatic, PERRLA, EOMI Neck: Supple, JVD not distended Respiratory: Clear to auscultation bilaterally, Normal air movement Cardiovascular: Regular rate/rhythm, Normal S1 S2 Gastrointestinal: Normal bowel sounds, No tenderness Musculoskeletal: No tenderness Integumentary: No rashes Neurological: Normal speech, Normal tone, Normal affect Lymphatics: No axilla or inguinal lymphadenopathy - Studies Medications List Reviewed: Yes Assessment And Plan - Current Problems (Diagnosis) (1) Acute ischemic stroke Current Visit: No Status: Acute Plan: Acute CVA -MRI showing large CVA involving the medial right occipital lobe and portions of posterior medial right temporal lobe -Patient currently on aspirin 81 mg daily, Plavix 75 mg daily and Lipitor 40 mg daily. -Neurology consulted. Appreciate reccs -Echocardiogram and carotid Doppler unremarkable. -Pending Placement at this time. (2) Community acquired pneumonia Onset Date: 02/24/18 Current Visit: No Status: Acute Plan: Most Likely aspiration PNA. -On Levaquin for now 6/14 days -Improving Qualifiers: Laterality: unspecified laterality Qualified Code(s): J18.9 - Pneumonia, unspecified organism (3) Rhabdomyolysis Current Visit: Yes Status: Resolved Plan: Resolved now Qualifiers: Rhabdomyolysis type: non-traumatic Qualified Code(s): M62.82 - Rhabdomyolysis (4) Fall Current Visit: Yes Status: Acute Plan: S/P Fall. Most likely 2.2 to Acute CVA -PT consulted. Appreciated Reccs -Fall precautions Qualifiers: Encounter type: initial encounter Qualified Code(s): W19.XXXA - Unspecified fall, initial encounter (5) Essential hypertension Onset Date: 02/24/18 Current Visit: No Status: Chronic Plan: Restart home medication (6) Hyperlipidemia Current Visit: No Status: Chronic Plan: Hold home medication at this time as that can induce worsening of rhabdomyolysis Qualifiers: Hyperlipidemia type: mixed hyperlipidemia Qualified Code(s): E78.2 - Mixed hyperlipidemia - Plan The patient pending placement at this time. Discharge Plan: Other Plan to discharge in: 48 Hours - Code Status/Comfort Care Code Status Assessed: Yes Critical Care: No
[2018-08-20] MEDS: ATORVASTATIN 40 MG TAB PO SCH (20:05)
[2018-08-20] MEDS: TAMSULOSIN 0.4 MG SR CAP PO SCH (20:06)
[2018-08-20] MEDS: LORazepam 2 MG/ML VIAL IV PRN (20:06)
[2018-08-21] MEDS: METOPROLOL TAR 25 MG TAB PO SCH ×2 (06:00→17:01)
[2018-08-21 07:45] LABS: BUN Blood Urea Nitrogen 12 mg/dL (7-18); Bicarbonate 28 mmol/L (21-32); Glucose Level 95 mg/dL (74-106); Potassium 3.9 mmol/L (3.5-5.1); Sodium Level 140 mmol/L (136-145)
[2018-08-21] MEDS: GABAPENTIN 300 MG CAP PO SCH ×2 (10:18→22:29)
[2018-08-21] MEDS: ASPIRIN EC 81 MG TAB PO SCH (10:19)
[2018-08-21] MEDS: FOLIC ACID 1 MG TABLET PO SCH (10:19)
[2018-08-21] MEDS: LISINOPRIL 10 MG TAB PO SCH (10:19)
[2018-08-21] MEDS: CLOPIDOGREL 75 MG TABLET PO SCH (10:19)
[2018-08-21] MEDS: levoFLOXacin 500 MG TAB PO SCH (10:22)
[2018-08-21] MEDS: ENOXAPARIN 40 MG/0.4 ML SQ SCH (10:22)
--- NOTE | 2018-08-21 11:31 | P.PN ---
Subjective Date of Service: 08/21/18 Primary Care Provider: Dr Landis Chief Complaint: Fall Patient seen and examined at bedside with RN. Chart reviewed. Case discussed with neurology. Patient initially was going to go to [facility] Medicaid pending. Now there is a referral pending for [facility] nursing [facility] Review of Systems 10-point ROS is otherwise unremarkable Physical Examination - Vital Signs Temperature: 98.0 F Blood Pressure: 138/75 Pulse: 87 Respirations: 17 Pulse Ox (%): 96 - Physical Exam General: Alert, In no apparent distress, Confused HEENT: Atraumatic, PERRLA, EOMI Neck: Supple, JVD not distended Respiratory: Clear to auscultation bilaterally, Normal air movement Cardiovascular: Regular rate/rhythm, Normal S1 S2 Gastrointestinal: Normal bowel sounds, No tenderness Musculoskeletal: No tenderness Integumentary: No rashes Neurological: Normal speech, Normal tone, Normal affect Lymphatics: No axilla or inguinal lymphadenopathy - Studies Medications List Reviewed: Yes Assessment And Plan - Current Problems (Diagnosis) (1) Acute ischemic stroke Current Visit: No Status: Acute Plan: Acute CVA -MRI showing large CVA involving the medial right occipital lobe and portions of posterior medial right temporal lobe -Patient currently on aspirin 81 mg daily, Plavix 75 mg daily and Lipitor 40 mg daily. -Neurology consulted. Appreciate reccs -Echocardiogram and carotid Doppler unremarkable. -Pending Placement at this time. (2) Community acquired pneumonia Onset Date: 02/24/18 Current Visit: No Status: Acute Plan: Most Likely aspiration PNA. -On Levaquin for now 6/14 days -Improving Qualifiers: Laterality: unspecified laterality Qualified Code(s): J18.9 - Pneumonia, unspecified organism (3) Rhabdomyolysis Current Visit: Yes Status: Resolved Plan: Resolved now Qualifiers: Rhabdomyolysis type: non-traumatic Qualified Code(s): M62.82 - Rhabdomyolysis (4) Fall Current Visit: Yes Status: Acute Plan: S/P Fall. Most likely 2.2 to Acute CVA -PT consulted. Appreciated Reccs -Fall precautions Qualifiers: Encounter type: initial encounter Qualified Code(s): W19.XXXA - Unspecified fall, initial encounter (5) Essential hypertension Onset Date: 02/24/18 Current Visit: No Status: Chronic Plan: Restart home medication (6) Hyperlipidemia Current Visit: No Status: Chronic Plan: Hold home medication at this time as that can induce worsening of rhabdomyolysis Qualifiers: Hyperlipidemia type: mixed hyperlipidemia Qualified Code(s): E78.2 - Mixed hyperlipidemia - Plan The patient pending placement at this time. Discharge Plan: Halfway Plan to discharge in: 48 Hours - Code Status/Comfort Care Code Status Assessed: Yes Critical Care: No
[2018-08-21] MEDS: TAMSULOSIN 0.4 MG SR CAP PO SCH (22:29)
[2018-08-21] MEDS: ATORVASTATIN 40 MG TAB PO SCH (22:29)
[2018-08-22] MEDS: METOPROLOL TAR 25 MG TAB PO SCH ×2 (06:00→18:00)
[2018-08-22] MEDS: LISINOPRIL 10 MG TAB PO SCH (10:28)
[2018-08-22] MEDS: ASPIRIN EC 81 MG TAB PO SCH (10:29)
[2018-08-22] MEDS: FOLIC ACID 1 MG TABLET PO SCH (10:29)
[2018-08-22] MEDS: levoFLOXacin 500 MG TAB PO SCH (10:29)
[2018-08-22] MEDS: GABAPENTIN 300 MG CAP PO SCH ×2 (10:29→20:11)
[2018-08-22] MEDS: CLOPIDOGREL 75 MG TABLET PO SCH (10:30)
[2018-08-22] MEDS: ENOXAPARIN 40 MG/0.4 ML SQ SCH (10:30)
--- NOTE | 2018-08-22 14:53 | P.PN ---
Subjective Date of Service: 08/22/18 Primary Care Provider: Dr Landis Chief Complaint: Fall Patient seen and examined at bedside with RN. Chart reviewed. Case discussed with neurology. Patient initially was going to go to [facility] Medicaid pending. Now there is a referral pending for [facility] Review of Systems 10-point ROS is otherwise unremarkable Physical Examination - Vital Signs Temperature: 98.0 F Blood Pressure: 145/84 Pulse: 84 Respirations: 20 Pulse Ox (%): 95 - Physical Exam General: Alert, In no apparent distress, Oriented x1, Confused HEENT: Atraumatic, PERRLA, EOMI Neck: Supple, JVD not distended Respiratory: Clear to auscultation bilaterally, Normal air movement Cardiovascular: Regular rate/rhythm, Normal S1 S2 Gastrointestinal: Normal bowel sounds, No tenderness Musculoskeletal: No tenderness Integumentary: No rashes Neurological: Normal speech, Normal tone, Normal affect Lymphatics: No axilla or inguinal lymphadenopathy - Studies Medications List Reviewed: Yes Assessment And Plan - Current Problems (Diagnosis) (1) Acute ischemic stroke Current Visit: No Status: Acute Plan: Acute CVA -MRI showing large CVA involving the medial right occipital lobe and portions of posterior medial right temporal lobe -Patient currently on aspirin 81 mg daily, Plavix 75 mg daily and Lipitor 40 mg daily. -Neurology consulted. Appreciate reccs -Echocardiogram and carotid Doppler unremarkable. -Pending Placement at this time. (2) Community acquired pneumonia Onset Date: 02/24/18 Current Visit: No Status: Acute Plan: Most Likely aspiration PNA. -On Levaquin for now 6/14 days -Improving Qualifiers: Laterality: unspecified laterality Qualified Code(s): J18.9 - Pneumonia, unspecified organism (3) Rhabdomyolysis Current Visit: Yes Status: Resolved Plan: Resolved now Qualifiers: Rhabdomyolysis type: non-traumatic Qualified Code(s): M62.82 - Rhabdomyolysis (4) Fall Current Visit: Yes Status: Acute Plan: S/P Fall. Most likely 2.2 to Acute CVA -PT consulted. Appreciated Reccs -Fall precautions Qualifiers: Encounter type: initial encounter Qualified Code(s): W19.XXXA - Unspecified fall, initial encounter (5) Essential hypertension Onset Date: 02/24/18 Current Visit: No Status: Chronic Plan: Restart home medication (6) Hyperlipidemia Current Visit: No Status: Chronic Plan: Hold home medication at this time as that can induce worsening of rhabdomyolysis Qualifiers: Hyperlipidemia type: mixed hyperlipidemia Qualified Code(s): E78.2 - Mixed hyperlipidemia - Plan The patient pending placement at this time.
[2018-08-22] MEDS: TAMSULOSIN 0.4 MG SR CAP PO SCH (20:11)
[2018-08-22] MEDS: ATORVASTATIN 40 MG TAB PO SCH (20:11)
[2018-08-22] MEDS: ACETAMINOPHEN 500 MG TAB PO PRN (21:38)
[2018-08-23] MEDS: METOPROLOL TAR 25 MG TAB PO SCH (06:00)
[2018-08-23] MEDS: FOLIC ACID 1 MG TABLET PO SCH (08:45)
[2018-08-23] MEDS: LISINOPRIL 10 MG TAB PO SCH (08:45)
[2018-08-23] MEDS: GABAPENTIN 300 MG CAP PO SCH (08:46)
[2018-08-23] MEDS: CLOPIDOGREL 75 MG TABLET PO SCH (08:46)
[2018-08-23] MEDS: ENOXAPARIN 40 MG/0.4 ML SQ SCH (08:46)
[2018-08-23] MEDS: ASPIRIN EC 81 MG TAB PO SCH (08:46)
[2018-08-23] MEDS: levoFLOXacin 500 MG TAB PO SCH (08:46)
--- NOTE | 2018-08-23 12:18 | P.PN ---
Subjective Date of Service: 08/23/18 Primary Care Provider: Dr Landis Chief Complaint: Fall Patient seen and examined at bedside with RN. Chart reviewed. Case discussed with neurology. Patient initially was going to go to [facility] Medicaid pending. Now there is a referral pending for [facility] nursing [facility] Review of Systems 10-point ROS is otherwise unremarkable Physical Examination - Vital Signs Temperature: 97.5 F Blood Pressure: 128/76 Pulse: 85 Respirations: 20 Pulse Ox (%): 95 - Physical Exam General: Alert, In no apparent distress HEENT: Atraumatic, PERRLA, EOMI Neck: Supple, JVD not distended Respiratory: Clear to auscultation bilaterally, Normal air movement Cardiovascular: Regular rate/rhythm, Normal S1 S2 Gastrointestinal: Normal bowel sounds, No tenderness Musculoskeletal: No tenderness Integumentary: No rashes Neurological: Normal speech, Normal tone, Normal affect Lymphatics: No axilla or inguinal lymphadenopathy - Studies Medications List Reviewed: Yes Assessment And Plan - Current Problems (Diagnosis) (1) Acute ischemic stroke Current Visit: No Status: Acute Plan: Acute CVA -MRI showing large CVA involving the medial right occipital lobe and portions of posterior medial right temporal lobe -Patient currently on aspirin 81 mg daily, Plavix 75 mg daily and Lipitor 40 mg daily. -Neurology consulted. Appreciate reccs -Echocardiogram and carotid Doppler unremarkable. -Pending Placement at this time. (2) Community acquired pneumonia Onset Date: 02/24/18 Current Visit: No Status: Acute Plan: Most Likely aspiration PNA. -On Levaquin for now 6/14 days -Improving Qualifiers: Laterality: unspecified laterality Qualified Code(s): J18.9 - Pneumonia, unspecified organism (3) Rhabdomyolysis Current Visit: Yes Status: Resolved Plan: Resolved now Qualifiers: Rhabdomyolysis type: non-traumatic Qualified Code(s): M62.82 - Rhabdomyolysis (4) Fall Current Visit: Yes Status: Acute Plan: S/P Fall. Most likely 2.2 to Acute CVA -PT consulted. Appreciated Reccs -Fall precautions Qualifiers: Encounter type: initial encounter Qualified Code(s): W19.XXXA - Unspecified fall, initial encounter (5) Essential hypertension Onset Date: 02/24/18 Current Visit: No Status: Chronic Plan: Restart home medication (6) Hyperlipidemia Current Visit: No Status: Chronic Plan: Hold home medication at this time as that can induce worsening of rhabdomyolysis Qualifiers: Hyperlipidemia type: mixed hyperlipidemia Qualified Code(s): E78.2 - Mixed hyperlipidemia - Plan The patient pending placement at this time. Discharge Plan: Senior Living Plan to discharge in: 48 Hours - Code Status/Comfort Care Code Status Assessed: Yes Critical Care: No
--- NOTE | 2018-08-23 15:30 | P.DS ---
Admission Date: 08/11/18 Discharge Date: 08/23/18 Primary Care Provider: Dr Landis Disposition: ROUTINE DISCHARGE Discharge Condition: GOOD Reason for Admission: Fall - Problems (1) Acute ischemic stroke Current Visit: No Status: Acute (2) Community acquired pneumonia Onset Date: 02/24/18 Current Visit: No Status: Acute Qualifiers: Laterality: unspecified laterality Qualified Code(s): J18.9 - Pneumonia, unspecified organism (3) Rhabdomyolysis Current Visit: Yes Status: Resolved Qualifiers: Rhabdomyolysis type: non-traumatic Qualified Code(s): M62.82 - Rhabdomyolysis (4) Fall Current Visit: Yes Status: Acute Qualifiers: Encounter type: initial encounter Qualified Code(s): W19.XXXA - Unspecified fall, initial encounter (5) Essential hypertension Onset Date: 02/24/18 Current Visit: No Status: Chronic (6) Hyperlipidemia Current Visit: No Status: Chronic Qualifiers: Hyperlipidemia type: mixed hyperlipidemia Qualified Code(s): E78.2 - Mixed hyperlipidemia Brief History of Present Illness: This is a 67-year-old male with significant past medical history of hypertension and previous stroke who presented to the ED after being found down at the house by his brother. Patient and family at bedside complains of having generalized weakness for past couple of days. Brother states that when he got home patient was on the floor for an unknown amount of time however he suspects that he was down for about 24 hr. Brother at that time he did call left assists and patient was brought over to the ER for further care. Patient denies having any fever chills nausea vomiting abdominal pain headaches or any other associated symptoms at this time. Patient does have history of previous strokes and did have similar symptoms in the past from that. In the ER patient had imaging and lab work done which was consistent with rhabdomyolysis. Head CT was negative for any acute stroke. Patient then was admitted to [facility] for further workup. Hospital Course: Overall during the hospital stay patient remained stable The patient was initially admitted to the hospital after having a fall and was found to have rhabdomyolysis. Patient also had an MRI of his brain done here in the hospital which was positive for acute CVA. Patient remained here in the hospital on IV fluids and IV antibiotics for possible pneumonia. Patient also had neurology consulted was started on aspirin Plavix and Lipitor for stroke prevention while here in the hospital. Neurology recommended MRI stroke protocol. Patient while here in the hospital had intermittent confusion. Was able to follow commands however not on daily basis. Initially patient's family was going to take him to the [facility] given his acute CVA and a new baseline for his mentation. However family then decided that patient will go to with [facility] for group home facility as he worked well with physical therapy here. Patient then was approved to go to with [facility] and was transferred there for further care for rehab. Vital Signs/Physical Exam: Temp Pulse Resp BP Pulse Ox 97.5 F 85 20 128/76 95 08/23/18 12:18 08/23/18 12:18 08/23/18 12:18 08/23/18 12:18 08/23/18 12:18 General: Alert, In no apparent distress HEENT: Atraumatic, PERRLA, EOMI Neck: Supple, JVD not distended Respiratory: Clear to auscultation bilaterally, Normal air movement Cardiovascular: Regular rate/rhythm, Normal S1 S2 Gastrointestinal: Normal bowel sounds, No tenderness Musculoskeletal: No tenderness Integumentary: No rashes Neurological: Normal speech, Normal tone, Normal affect Lymphatics: No axilla or inguinal lymphadenopathy Laboratory Data at Discharge: WBC 8.5 K/uL (4.3-10.9) 08/15/18 05:10 Hgb 17.0 g/dL (13.6-17.9) 08/15/18 05:10 Hct 48.6 % (39.6-49.0) 08/15/18 05:10 Plt Count 227 K/uL (152-406) 08/15/18 05:10 PT 12.2 SECONDS (9.5-12.5) 08/11/18 07:19 INR 1.03 08/11/18 07:19 APTT 27.8 SECONDS (24.3-36.9) 08/11/18 07:19 Sodium 140 mmol/L (136-145) 08/21/18 07:19 Potassium 3.9 mmol/L (3.5-5.1) 08/21/18 07:19 BUN 12 mg/dL (7-18) 08/21/18 07:19 Creatinine 0.70 mg/dL (0.55-1.3) 08/21/18 07:19 Glucose 95 mg/dL (74-106) 08/21/18 07:19 Phosphorus 3.3 mg/dL (2.5-4.9) 08/20/18 05:22 Magnesium 2.4 mg/dL (1.8-2.4) 08/20/18 05:22 Total Bilirubin 1.2 mg/dL (0.2-1.0) H 08/12/18 03:43 AST 275 U/L (15-37) H 08/12/18 03:43 ALT 51 U/L (12-78) 08/12/18 03:43 Alkaline Phosphatase 61 U/L (45-117) 08/12/18 03:43 Triglycerides 72 mg/dL (<150) 08/12/18 07:43 Cholesterol 140 mg/dL (<200) 08/12/18 07:43 HDL Cholesterol 55 mg/dL (40-60) 08/12/18 07:43 Cholesterol/HDL Ratio 2.55 08/12/18 07:43 Home Medications: Lisinopril 10 mg PO DAILY 05/06/17 Simvastatin 1 tab PO BEDTIME 05/06/17 Aspirin [Aspirin EC 81 MG] 1 tab PO DAILY 02/23/18 Gabapentin [Gralise] 300 mg PO BID 02/23/18 Diet: Regular Activity: Ad adama Followup: Linden Landis DO, DO [Primary Care Provider] - 1 Week (Call office to schedule an appointment)
== END 2018-08-23 16:20 | DRG 64 ==
LOC: ER 06:57 → ERHOLD 08:44 → 2ND 10:02
PROVIDERS: ADMIT Family Medicine; ATTEND Family Medicine
DX: I63.9 Cerebral infarction, unspecified (principal); J18.9 Pneumonia, unspecified organism; M62.82 Rhabdomyolysis; N39.0 Urinary tract infection, site not specified; W01.0XXA Fall on same level from slipping, tripping and stumbling without subsequent striking against object, initial encounter; Y93.9 Activity, unspecified; Y92.019 Unspecified place in single-family (private) house as the place of occurrence of the external cause; I10 Essential (primary) hypertension; F17.210 Nicotine dependence, cigarettes, uncomplicated; R47.01 Aphasia; H53.8 Other visual disturbances; N40.1 Benign prostatic hyperplasia with lower urinary tract symptoms; R33.8 Other retention of urine
CPT/HCPCS: 36415; 51702; 70450; 70551; 71045; 80048; 80053; 80061; 81003; 81015; 82550; 83735; 84100; 84132; 84145; 84443; 84484; 85025; 85610; 85730; 87040; 87086; 87088; 93005; 93306; 93880; 96365; 96375; 97163; 99285; J0360; J0696; J1650; J3486; J7030

== ENCOUNTER 2018-09-29 18:45 | Inpatient (IN) | payer MEDICARE ==
--- OUTSIDE RECORDS SUMMARY | 2018-09-29 18:47 | XMS REPORT | Continuity of Care Document ---
[...] Number For Provider Date Date Visit Outpatient [id number] LUCY 12/25 Active [facility] [place] Outpatient [id number] LUCY 01/06 Active [facility] [place] Outpatient [id number] LUCY 02/03 Active [facility] [place] Outpatient [id number] LUCY 03/18 Active [facility] Outpatient [id number] LUCY 04/08 Active [facility] Outpatient [id number] LUCY 07/07 Active [facility] Outpatient [id number] LUCY 11/10 Active [facility] [place] Procedures Procedure Code Date Perfomer Comments Source
--- OUTSIDE RECORDS SUMMARY | 2018-09-29 18:47 | XMS REPORT | Clinical Summary ---
:1950 Author Organization [facility] Address [address] [place] [address] Care Team Providers Name Role Phone Velasquez Primary Care Provider Allergies No Known Allergies Medications Medication Sig Dispensed Refills Start Date End Date Status lisinopril Take 5 mg by 0 Active (PRINIVIL,ZESTRIL) 5 mouth daily. MG tablet cloNIDine HCl Take 0.2 mg by 0 Active (CATAPRES) 0.2 MG mouth 3 (three) [...] 01/05/2017 Acute ischemic left posterior cerebral artery ([employer]) stroke 01/03/2017 Social History Tobacco Use Types Packs/Day Years Used Date Current Every Day Smoker Cigarettes 1 Alcohol Use Drinks/Week oz/Week Comments Yes 4 Standard drinks or equivalent 2.0 Sex Assigned at Date Recorded Not on file Job Start Date Occupation Industry Not on file Not on file Not on file Travel History Travel Start Travel End No recent travel history available. Last Filed Vital Signs Not on file Plan of Treatment Not on file Results Not on fileafter 09/28/2017 Advance Directives For more information, please contact:[facility] [address] [place], [place] [phone] Code Status Date Activated Date Inactivated Comments Full Code 01/03/2017 10:59 PM 01/05/2017 6:19 PM This code status was determined by: Patient
--- OUTSIDE RECORDS SUMMARY | 2018-09-29 18:47 | XMS REPORT ---
:1950 [facility] Address [address] [place] [address] Care Team Providers Name Role Phone FARZANEH [...] Reference Range Comments TOTAL COUNTED (BEAKER) (test biak=5133) CBC W/PLT COUNT & AUTO [id number] 07:10:00 Test Item Value Reference Range Comments WHITE BLOOD CELL COUNT (BEAKER) (test gfhp=303) 9.9 K/ L 4.0-10.0 RED BLOOD CELL COUNT (BEAKER) (test ptgl=402) 4.91 M/ L 4.20-5.80 HEMOGLOBIN (BEAKER) (test oeqn=719) 16.7 GM/DL 13.0-16.8 HEMATOCRIT (BEAKER) (test fpxs=018) 48.2 % 40.0-50.0 MEAN CORPUSCULAR VOLUME (BEAKER) (test purg=554) 98.2 fL 82.0-98.0 MEAN CORPUSCULAR HEMOGLOBIN (BEAKER) (test 33.9 pg 27.0-33.0 xide=477) MEAN CORPUSCULAR HEMOGLOBIN CONC (BEAKER) (test 34.5 GM/DL 32.0-36.0 emjf=095) RED CELL DISTRIBUTION WIDTH (BEAKER) (test 14.1 % 10.3-14.2 jhgr=222) PLATELET COUNT (BEAKER) (test tfhl=129) 202 K/CU MM 150-430 MEAN PLATELET VOLUME (BEAKER) (test csri=748) 7.1 fL 6.5-10.5 NUCLEATED RED BLOOD CELLS (BEAKER) (test 0 /100 WBC 0-0 wmda=053) NEUTROPHILS RELATIVE PERCENT (BEAKER) (test 54 % phoq=443) LYMPHOCYTES RELATIVE PERCENT (BEAKER) (test 34 % arwi=078) MONOCYTES RELATIVE PERCENT (BEAKER) (test 10 % khre=960) EOSINOPHILS RELATIVE PERCENT (BEAKER) (test 1 % vpwp=144) BASOPHILS RELATIVE PERCENT (BEAKER) (test 1 % dcfj=452) NEUTROPHILS ABSOLUTE COUNT (BEAKER) (test 5.36 K/ L 1.80-8.00 jyxw=366) LYMPHOCYTES ABSOLUTE COUNT (BEAKER) (test 3.31 K/ L 1.48-4.50 uvhz=666) MONOCYTES ABSOLUTE COUNT (BEAKER) (test 1.00 K/ L 0.00-1.30 lgoo=554) EOSINOPHILS ABSOLUTE COUNT (BEAKER) (test 0.12 K/ L 0.00-0.50 prfl=905) BASOPHILS ABSOLUTE COUNT (BEAKER) (test 0.07 K/ L 0.00-0.20 fjee=420) [id number] [id number] 06:48:00 Test Item Value Reference Range Comments TRIGLYCERIDES (BEAKER) (test loqz=456) 89 mg/dL CHOLESTEROL (BEAKER) (test dhhm=490) 158 mg/dL HDL CHOLESTEROL (BEAKER) (test kjcw=181) 40 mg/dL LDL CHOLESTEROL CALCULATED (BEAKER) (test 100 mg/dL eavt=450) Triglyceride Reference Range: Low Risk <150 Borderline 150- 199 High Risk 200-499 Very High Risk >=500Cholesterol Reference Range: Low Risk <200 Borderline 200-239 High Risk > 240HDL Cholesterol Reference Range: Low Risk >=60 High Risk <40LDL Cholesterol Reference Range: Optimal <100 Near Optimal 100-129 Borderline 130-159 High 160-189 Very High >=190BASIC METABOLIC [id number] 06:48:00 Test Item Value Reference Range Comments SODIUM (BEAKER) (test 137 meq/L 136-145 wvax=809) POTASSIUM (BEAKER) (test 3.8 meq/L 3.5-5.1 tiam=747) CHLORIDE (BEAKER) (test 107 meq/L 98-107 kyuw=009) CO2 (BEAKER) (test 23 meq/L 22-29 pjme=547) BLOOD UREA NITROGEN 21 mg/dL 7-21 (BEAKER) (test hdeo=801) CREATININE (BEAKER) (test 1.03 mg/dL 0.57-1.25 lkcf=548) GLUCOSE RANDOM (BEAKER) 101 mg/dL 70-105 (test iqrp=992) CALCIUM (BEAKER) (test 8.9 mg/dL 8.4-10.2 oexu=557) EGFR (BEAKER) (test 88 mL/min/1.73 sq m ESTIMATED GFR IS NOT ffli=8179) ACCURATE CREATININE CLEARANCE IN PREDICTING GLOMERULAR FILTRATION RATE. ESTIMATED GFR IS NOT APPLICABLE FOR DIALYSIS PATIENTS. HEMOGLOBIN [id number] 07:38:00 Test Item Value Reference Range Comments HEMOGLOBIN A1C (BEAKER) (test ktsf=775) 5.6 % 4.3-6.1 TSH/FREE T4 IF [id number] 04:58:00 Test Item Value Reference Range Comments THYROID STIMULATING HORMONE (BEAKER) (test 1.28 uIU/mL 0.35-4.94 wxbc=940) VITAMIN B12 AND [id number] 04:58:00 Test Item Value Reference Range Comments VITAMIN B12 (BEAKER) (test spib=214) 260 pg/mL 213-816 FOLATE (BEAKER) (test cymx=297) 13.0 ng/mL >=7.0 Effective 09/12/2014: Folate Reference Range ChangeNew: >=7.0 Previous: & gt;=[id number] 04:08:00 Test Item Value Reference Range Comments MAGNESIUM (BEAKER) (test lsac=247) 2.0 mg/dL 1.6-2.6 BASIC METABOLIC [id number] 04:08:00 Test Item Value Reference Range Comments SODIUM (BEAKER) (test 140 meq/L 136-145 xskp=855) POTASSIUM (BEAKER) (test 4.0 meq/L 3.5-5.1 fnsr=685) CHLORIDE (BEAKER) (test 107 meq/L 98-107 wksv=218) CO2 (BEAKER) (test 22 meq/L 22-29 nqfh=416) BLOOD UREA NITROGEN 12 mg/dL 7-21 (BEAKER) (test qbsd=523) CREATININE (BEAKER) (test 0.92 mg/dL 0.57-1.25 xxpn=296) GLUCOSE RANDOM (BEAKER) 96 mg/dL 70-105 (test ulim=193) CALCIUM (BEAKER) (test 9.4 mg/dL 8.4-10.2 tjbq=808) EGFR (BEAKER) (test 100 mL/min/1.73 sq m ESTIMATED GFR IS NOT fpwd=9439) ACCURATE CREATININE CLEARANCE IN PREDICTING GLOMERULAR FILTRATION RATE. ESTIMATED GFR IS NOT APPLICABLE FOR DIALYSIS PATIENTS. CREATINE KINASE (CK), TOTAL AND [id number] 04:08:00 Test Item Value Reference Range Comments CREATINE KINASE TOTAL (BEAKER) (test jiqt=401) 85 U/L 29-200 CREATINE KINASE-MB (BEAKER) (test gtyv=579) 0.6 ng/mL 0.0-6.6 CREATINE KINASE-MB INDEX (BEAKER) (test tvod=178) 0.7 % Effective 09/12/2014: CK-MB Reference Range ChangeNew: 0.0-6.6 Previous: 0.0- 4.9CK-MB Reference Range:<6.7 Normal6.7-10.0 Borderline>10.0 AbnormalTROPONIN [id number] 04:07:00 Test Item Value Reference Range Comments TROPONIN I (BEAKER) (test xhks=210) < ng/mL 0.00-0.03 Effective 09/12/2014: Reference Range [...] acidosis, acute neurological disease, and persistent tachyarrhythmia.PROTHROMBIN [id number] 03:45:00 Test Item Value Reference Range Comments PROTIME (BEAKER) (test tudw=017) 12.6 seconds 11.7-14.7 INR (BEAKER) (test nrtb=320) 1.0 <=5.9 RECOMMENDED COUMADIN/WARFARIN INR THERAPY RANGESSTANDARD DOSE: 2.0 - 3.0 Includes: PROPHYLAXIS forvenous thrombosis, systemic embolization; TREATMENT for venous thrombosis and/or pulmonary embolus.HIGH RISK: Target INR is 2.5-3.5 for patients with mechanical heart valves.CBC W/PLT COUNT & AUTO [id number] 03:42:00 Test Item Value Reference Range Comments WHITE BLOOD CELL COUNT (BEAKER) (test ycvg=388) 9.6 K/ L 4.0-10.0 RED BLOOD CELL COUNT (BEAKER) (test kkxn=409) 4.92 M/ L 4.20-5.80 HEMOGLOBIN (BEAKER) (test hemh=738) 16.9 GM/DL 13.0-16.8 HEMATOCRIT (BEAKER) (test coax=162) 48.5 % 40.0-50.0 MEAN CORPUSCULAR VOLUME (BEAKER) (test pvdo=560) 98.6 fL 82.0-98.0 MEAN CORPUSCULAR HEMOGLOBIN (BEAKER) (test 34.3 pg 27.0-33.0 jwbk=312) MEAN CORPUSCULAR HEMOGLOBIN CONC (BEAKER) (test 34.8 GM/DL 32.0-36.0 uwqj=451) RED CELL DISTRIBUTION WIDTH (BEAKER) (test 12.8 % 10.3-14.2 rwhy=261) PLATELET COUNT (BEAKER) (test xosp=553) 200 K/CU MM 150-430 MEAN PLATELET VOLUME (BEAKER) (test qxmm=371) 7.0 fL 6.5-10.5 NUCLEATED RED BLOOD CELLS (BEAKER) (test 0 /100 WBC 0-0 gica=624) NEUTROPHILS RELATIVE PERCENT (BEAKER) (test 60 % drir=353) LYMPHOCYTES RELATIVE PERCENT (BEAKER) (test 30 % oerp=720) MONOCYTES RELATIVE PERCENT (BEAKER) (test 8 % ndql=493) EOSINOPHILS RELATIVE PERCENT (BEAKER) (test 1 % etem=530) BASOPHILS RELATIVE PERCENT (BEAKER) (test 1 % yjjv=216) NEUTROPHILS ABSOLUTE COUNT (BEAKER) (test 5.69 K/ L 1.80-8.00 dfca=977) LYMPHOCYTES ABSOLUTE COUNT (BEAKER) (test 2.91 K/ L 1.48-4.50 jzxf=265) MONOCYTES ABSOLUTE COUNT (BEAKER) (test 0.81 K/ L 0.00-1.30 rtav=163) EOSINOPHILS ABSOLUTE COUNT (BEAKER) (test 0.10 K/ L 0.00-0.50 hruh=602) BASOPHILS ABSOLUTE COUNT (BEAKER) (test 0.06 K/ L 0.00-0.20 edkq=939) 0.00
--- NOTE | 2018-09-29 19:19 | RAD REPORT ---
EXAM DESCRIPTION: CT - Ct Stroke Brain Wo Cont - 09/29/2018 7:06 pm CLINICAL HISTORY: Left-sided numbness and weakness COMPARISON: July 2018 TECHNIQUE: Computed axial tomography of the head was obtained. IV contrast was not requested. All CT scans are performed using dose optimization technique as appropriate and may include automated exposure control or mA/KV adjustment according to patient size. FINDINGS: An intracranial bleed is not seen . The ventricles are normal in caliber. No extra-axial fluid collection is noted. Low-density areas within the cerebral hemispheres bilaterally are unchanged compatible with old infar ctions. 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 Fluid within the sinuses/ mastoids is not seen. IMPRESSION: No acute intracranial abnormality is seen. If patient's symptoms persist MRI of the bra in would be recommended. Exam was discussed with Dr. Manley in the Emergency Room at 7:05 p.m. 09/29/2018
[2018-09-29 19:21] LABS: Absolute Monocytes 1.1 K/uL (0.1-1.3); Absolute Neutrophil 8.1 K/uL (1.8-8.0); Basophils % 0.5 % (0-1.3); Eosinophils % 0.9 % (0-4.4); Hematocrit 44.6 % (39.6-49.0); MCH 33.4 pg (27.0-35.0); MCV 96.5 fL (80-100); MPV 7.9 fL (7.6-11.3); Monocytes % 9.4 % (3.3-12.3); RBC Red Blood Cell Count 4.62 M/uL (4.33-5.43)
[2018-09-29 19:34] LABS: BUN Blood Urea Nitrogen 25 mg/dL (7-18); Bicarbonate 26 mmol/L (21-32); Glucose Level 114 mg/dL (74-106); Sodium Level 142 mmol/L (136-145)
--- NOTE | 2018-09-29 19:52 | RAD REPORT ---
EXAM DESCRIPTION: Naveed Single View09/29/2018 7:31 pm CLINICAL HISTORY: Code stroke COMPARISON: July 2018 FINDINGS: The lungs appear clear of acute infiltrate. The heart is normal size IMPRESSION: No acute abnormalities displayed
--- NOTE | 2018-09-29 23:21 | EDPHYS ---
Physician Documentation [facility] Name: Srinivas Foy Age: 68 yrs Sex: Male : 1950 Arrival Date: 09/29/2018 Time: 18:47 Bed 30 Private MD: ED Physician Juan Manley HPI: 09/29 23:05 This 68 yrs old Black Male presents to ER via Wheelchair with complaints of S/S of gs Possible Stroke. 23:05 The patient's problem is reported as weakness, in the left upper extremity. Onset: The gs symptoms/episode began/occurred at 11:00. Duration: The episode is continuous. The symptoms are alleviated by nothing. The symptoms are aggravated by nothing. Associated signs and symptoms: Pertinent negatives: agitation. Severity of symptoms: At their worst the symptoms were moderate in the emergency department the symptoms are unchanged. The patient has experienced a previous episode. Historical: - Allergies: 18:51 NKA; tw2 - Home Meds: 18:51 Shanti Aspirin 81 mg Oral 1 tab once daily [Active]; clonidine HCl 0.2 mg Oral tab 1 tab tw2 Q8H [Active]; gabapentin 300 mg Oral cap 1 cap twice a day [Active]; lisinopril 10 mg Oral tab 1 tab once daily [Active]; simvastatin 40 mg Oral tab 1 tab once daily [Active]; - PMHx: 18:51 CVA; Hypertension; unable to verify; tw2 - PSHx: 18:51 Unable to obtain; tw2 - Immunization history:: Adult Immunizations unknown. - Social history:: Smoking status: unknown. - Ebola Screening: : Patient denies travel to an Ebola-affected area in the 21 days before illness onset. ROS: 23:05 All other systems are negative. gs Exam: 23:05 Head/Face: Normocephalic, atraumatic. ENT: Nares patent. No nasal discharge, no gs septal abnormalities noted. Tympanic membranes are normal and external auditory canals are clear. Oropharynx with no redness, swelling, or masses, exudates, or evidence of obstruction, uvula midline. Mucous membranes moist. Neck: Trachea midline, no thyromegaly or masses palpated, and no cervical lymphadenopathy. Supple, full range of motion without nuchal rigidity, or vertebral point tenderness. No Meningismus. Chest/axilla: Normal chest wall appearance and motion. Nontender with no deformity. No lesions are appreciated. Cardiovascular: Regular rate and rhythm with a normal S1 and S2. No gallops, murmurs, or rubs. Normal PMI, no JVD. No pulse deficits. Respiratory: Lungs have equal breath sounds bilaterally, clear to auscultation and percussion. No rales, rhonchi or wheezes noted. No increased work of breathing, no retractions or nasal flaring. Abdomen/GI: Soft, non-tender, with normal bowel sounds. No distension or tympany. No guarding or rebound. No evidence of tenderness throughout. Back: No spinal tenderness. No costovertebral tenderness. Full range of motion. 23:05 Skin: Warm, dry with normal turgor. Normal color with no rashes, no lesions, and no evidence of cellulitis. MS/ Extremity: Pulses equal, no cyanosis. Neurovascular intact. Full, normal range of motion. 23:05 Constitutional: The patient appears alert, awake. 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 23:05 ECG was reviewed by the Attending Physician. 23:05 Neuro: Orientation: to person, place, Cranial nerves: CN II- XII are normal as tested, Motor: strength is 4/5 in the left leg, Strength is 1/5 in the left arm. Vital Signs: 18:48 BP 173 / 91; Pulse 83; Resp 17; Temp 98.7(O); Pulse Ox 100% on R/A; Pain 0/10; tw2 19:15 BP 167 / 88; Pulse 71; Resp 18; Pulse Ox 100% on R/A; Pain 0/10; mg2 19:48 BP 164 / 88; Pulse 68; Resp 18; Pulse Ox 97% on R/A; Pain 0/10; mg2 21:00 BP 165 / 83; Pulse 63; Resp 18; Pulse Ox 100% on R/A; Pain 0/10; mg2 22:05 BP 159 / 84; Pulse 66; Resp 18; Pulse Ox 100% on R/A; Pain 0/10; mg2 23:41 BP 168 / 87; Pulse 60; Resp 18; Pulse Ox 100% on R/A; Pain 0/10; mg2 NIH Stroke Scale Scores: 19:39 NIHSS Score: 12 mg2 23:05 NIHSS Score: 6 gs MDM: 19:30 Patient medically screened. gs 23:05 Differential diagnosis: CVA, TIA, metabolic disorder, drug effects. Data reviewed: vital signs, nurses notes. Counseling: I had a detailed discussion with the patient and/or guardian regarding: the historical points, exam findings, and any diagnostic results supporting the discharge/admit diagnosis, the need for further work-up and treatment in the hospital. Response to treatment: the patient's symptoms have mildly improved after treatment. ED course: no tpa out of window. 09/29 19:00 Order name: Basic Metabolic Panel lt1 09/29 19:00 Order name: CBC with Diff lt1 09/29 19:00 Order name: Protime (+inr) lt1 09/29 19:00 Order name: Ptt, Activated lt1 09/29 19:11 Order name: Glucose, Ancillary Testing; Complete Time: 20:28 EDMS 09/29 19:33 Order name: CBC with Automated Diff; Complete Time: 20:28 EDMS 09/29 19:00 Order name: CT Stroke Brain w/o Contrast lt1 09/29 19:00 Order name: Stroke CXR 1 View lt 09/29 19:20 Order name: CT; Complete Time: 20:28 EDMS 09/29 19:35 Order name: Basic Metabolic Panel; Complete Time: 20:28 EDMS 09/29 19:43 Order name: Protime (+INR); Complete Time: 20:28 EDMS 09/29 19:43 Order name: PTT, Activated Partial Thromb; Complete Time: 20:28 EDMS 09/29 20:38 Order name: CPK 09/29 21:02 Order name: Creatine Phosphokinase EDRI 09/29 19:00 Order name: EKG; Complete Time: 19:01 lt1 09/29 19:00 Order name: Accucheck; Complete Time: 19:14 lt1 09/29 19:00 Order name: Cardiac monitoring; Complete Time: 19:14 lt1 09/29 19:00 Order name: EKG - Nurse/Tech; Complete Time: 19:14 lt1 09/29 19:00 Order name: IV Saline Lock; Complete Time: 19:14 lt1 09/29 19:00 Order name: Labs collected and sent; Complete Time: 19:14 lt1 09/29 19:00 Order name: NPO; Complete Time: 19:14 lt1 09/29 19:00 Order name: O2 Per Protocol; Complete Time: 19:14 lt1 09/29 19:00 Order name: O2 Sat Monitoring; Complete Time: 19:14 lt1 09/29 19:00 Order name: Stroke Swallow Screen; Complete Time: 19:37 lt1 12 19:54 Order name: RAD; Complete Time: 20:28 EDMS EC:05 Rate is 67 beats/min. Rhythm is regular. MA interval is normal. QRS interval is normal. gs T waves are Flattened. Clinical impression: NSR w/ Non-specific ST/T Changes. Interpreted by me. Administered Medications: No medications were administered Point of Care Testing: Blood Glucose: 19:05 Blood Glucose: 125 mg/dL; ss Ranges: Critical Glucose Levels:Adult <50 mg/dl or >400 mg/dl <40 mg/dl or >180 mg/dl Disposition: 09/29/18 23:20 Hospitalization ordered by Juventino Dejesus for Inpatient Admission. Preliminary diagnosis is Cerebral infarction. - Bed requested for Telemetry/MedSurg (Inpatient). - Status is Inpatient Admission. mg2 - Condition is Stable. - Problem is new. - Symptoms are unchanged. UTI on Admission? No NIH Stroke Scale - NIH Stroke Score Date: 09/29/2018 Time: 19:39 Total Score = 12 1a. Level of Consciousness (LOC) - 0(Alert) 1b. Level of Consciousness (LOC) (Year \T\ Age) - 1(One) 1c. LOC Commands (Open \T\ Closes Eyes/Electric Stove Mechanic) - 0(Both) 2. Best Gaze (Lateral Gaze Paresis) - 0(Normal) 3. Visual Field Loss - 3(Bilateral hemianopia) 4. Facial Palsy - 0(Normal) 5a. Left Arm: Motor (10-second hold) - 4(No movement) 5b. Right Arm: Motor (10-second hold) - 0(No drift) 6a. Left Leg: Motor (5-second hold - always test supine) - 2(Drift, some effort against gravity) 6b. Right Leg: Motor (5-second hold - always test supine) - 1(Drift) 7. Limb Ataxia (finger/nose \T\ heel/asif - test with eyes open) - 1(Present in one limb) 8. Sensory Loss (pinprick arms/legs/face) - 0(Normal) 9. Best Language: Aphasia (description/naming/reading) - 0(No aphasia) 10. Dysarthria (speech clarity - read or repeat words) - 0(Normal) 11. Extinction and Inattention (visual/tactile/auditory/spatial/personal) - 0(No abnormality) Initials: [facility] [place] NIH Stroke Scale - NIH Stroke Score Date: 09/29/2018 Time: 23:05 Total Score = 6 1a. Level of Consciousness (LOC) - 0(Alert) 1b. Level of Consciousness (LOC) (Year \T\ Age) - 1(One) 1c. LOC Commands (Open \T\ Closes Eyes/Electric Stove Mechanic) - 0(Both) 2. Best Gaze (Lateral Gaze Paresis) - 0(Normal) 3. Visual Field Loss - 1(Partial hemianopia) 4. Facial Palsy - 0(Normal) 5a. Left Arm: Motor (10-second hold) - 4(No movement) 5b. Right Arm: Motor (10-second hold) - 0(No drift) 6a. Left Leg: Motor (5-second hold - always test supine) - 0(No drift) 6b. Right Leg: Motor (5-second hold - always test supine) - 0(No drift) 7. Limb Ataxia (finger/nose \T\ heel/asif - test with eyes open) - 0(Absent) 8. Sensory Loss (pinprick arms/legs/face) - 0(Normal) 9. Best Language: Aphasia (description/naming/reading) - 0(No aphasia) 10. Dysarthria (speech clarity - read or repeat words) - 0(Normal) 11. Extinction and Inattention (visual/tactile/auditory/spatial/personal) - 0(No abnormality) Initials: Signatures: Dispatcher [employer] EDMS Tricia Cristina RN RN mw Wise, Tara, RN RN tw2 Juan Manley MD MD Giancarlo Cameron RN RN mg2 Nanette Allen lt1 Corrections: (The following items were deleted from the chart) 23:39 23:20 Hospitalization Ordered by Juventino Dejesus MD for Inpatient Admission. lizabeth Preliminary diagnosis is Cerebral infarction. Bed requested for Telemetry/MedSurg (Inpatient). Status is Inpatient Admission. Condition is Stable. Problem is new. Symptoms are unchanged. UTI on Admission? No. gs 09/30 00:26 09/29 23:39 09/29/2018 23:20 Hospitalization Ordered by Juventino Dejesus MD for mg2 Inpatient Admission. Preliminary diagnosis is Cerebral infarction. Bed requested for Telemetry/MedSurg (Inpatient). Status is Inpatient Admission. Condition is Stable. Problem is new. Symptoms are unchanged. UTI on Admission? No. mw
--- NOTE | 2018-09-29 23:21 | ER ---
Nurse's Notes [facility] Name: Srinivas Foy Age: 68 yrs Sex: Male : 1950 Arrival Date: 09/29/2018 Time: 18:47 Bed 30 Private MD: Diagnosis: Cerebral infarction Presentation: 09/29 18:48 Presenting complaint: Friend states: he started acting weak where he can move his arms. tw2 Transition of care: patient was not received from another setting of care. Risk Assessment: Do you want to hurt yourself or someone else? Patient reports no desire to harm self or others. Initial Sepsis Screen: Does the patient meet any 2 criteria? No. Patient's initial sepsis screen is negative. Does the patient have a suspected source of infection? No. Patient's initial sepsis screen is negative. Care prior to arrival: None. 18:48 Method Of Arrival: Wheelchair tw2 18:48 Acuity: RULA 3 tw2 18:48 Onset of symptoms was September 29, 2018 at 11:[address] Note Dr. Mays in triage room at this tw2 time assessing pt. 18:55 Note code stroke called at [address] Mays. tw2 19:44 An acute neurological deficit is present. The patients blood glucose was checked before mg2 arriving to the hospital and was found to be normal. Triage Assessment: 18:49 The onset of the patients symptoms was more than six hours ago. General: per cousin via tw2 phone at this time.. Pain: Denies pain. Neuro: Reports weakness pt is leaning to the left. 19:00 General: Appears in no apparent distress. comfortable. mg2 09/30 00:24 The onset of the patients symptoms was September 29, 2018 at 11:00. mg2 Stroke Activation: Symptom onset > 6 hours Physician: Stroke Attending; Name: ; Notified At: ; Arrived At: Physician: Chief Stroke Resident; Name: ; Notified At: ; Arrived At: Physician: Stroke Resident; Name: ; Notified At: ; Arrived At: Physician: ED Attending; Name: ; Notified At: ; Arrived At: Physician: ED Resident; Name: ; Notified At: ; Arrived At: Historical: - Allergies: 09/29 18:51 NKA; tw2 - Home Meds: 18:51 Shanti Aspirin 81 mg Oral 1 tab once daily [Active]; clonidine HCl 0.2 mg Oral tab 1 tab tw2 Q8H [Active]; gabapentin 300 mg Oral cap 1 cap twice a day [Active]; lisinopril 10 mg Oral tab 1 tab once daily [Active]; simvastatin 40 mg Oral tab 1 tab once daily [Active]; - PMHx: 18:51 CVA; Hypertension; unable to verify; tw2 - PSHx: 18:51 Unable to obtain; tw2 - Immunization history:: Adult Immunizations unknown. - Social history:: Smoking status: unknown. - Ebola Screening: : Patient denies travel to an Ebola-affected area in the 21 days before illness onset. Screenin:13 Abuse screen: Denies threats or abuse. Denies injuries from another. Nutritional mg2 screening: No deficits noted. Tuberculosis screening: No symptoms or risk factors identified. Fall Risk Secondary diagnosis (15 points) CVA, IV access (20 points). Gait- Weak (10 pts.). Assessment: 19:04 Reassessment: patient sent to ct scan. mg2 19:39 Patient has been NPO before screening. The patient is alert, and able to follow mg2 commands. The patient does not exhibit slurred or garbled speech. The patient is not exhibiting difficulty speaking. The patient does not exhibit difficulty understanding words. Patient tolerated one teaspoon of water. No drooling, immediate coughing, gurgling, or clearing of the throat was noted. The patient tolerated 90mL of water. No drooling, immediate coughing, gurgling, or clearing of the throat was noted. The patient passed the bedside swallow screening. Oral medications may be given as ordered. Contact Physician for further diet orders. 19:46 General: Appears comfortable, unkempt, Behavior is calm, cooperative. Pain: Denies mg2 pain. Neuro: Level of Consciousness is awake, alert, obeys commands, Oriented to person, place, time, situation. Neuro: Reports weakness in right arm since 11 am. Cardiovascular: Capillary refill < 3 seconds Patient's skin is warm and dry. Respiratory: Airway is patent Respiratory effort is even, unlabored, Respiratory pattern is regular, symmetrical. GI: No signs and/or symptoms were reported involving the gastrointestinal system. Abdomen is flat. : No signs and/or symptoms were reported regarding the genitourinary system. EENT: No signs and/or symptoms were reported regarding the EENT system. Derm: Skin is intact, is healthy with good turgor, Skin is pink, warm \T\ dry. normal. Musculoskeletal: Circulation, motion, and sensation intact. Capillary refill < 3 seconds. 20:00 Provider notified of bedside swallow screening results: Juan Manley MD. mg2 20:00 T-PA (Activase) Screening: Contraindications: Rapidly improving condition or minor mg2 deficit:. 21:01 Reassessment: Patient appears in no apparent distress at this time. Patient and/or mg2 family updated on plan of care and expected duration. Pain level reassessed. Patient is alert, oriented x 3, equal unlabored respirations, skin warm/dry/pink. 22:06 Reassessment: Patient appears in no apparent distress at this time. Patient and/or mg2 family updated on plan of care and expected duration. Pain level reassessed. Patient is alert, oriented x 3, equal unlabored respirations, skin warm/dry/pink. patient sleeping on bed. Vital Signs: 18:48 BP 173 / 91; Pulse 83; Resp 17; Temp 98.7(O); Pulse Ox 100% on R/A; Pain 0/10; tw2 19:15 BP 167 / 88; Pulse 71; Resp 18; Pulse Ox 100% on R/A; Pain 0/10; mg2 19:48 BP 164 / 88; Pulse 68; Resp 18; Pulse Ox 97% on R/A; Pain 0/10; mg2 21:00 BP 165 / 83; Pulse 63; Resp 18; Pulse Ox 100% on R/A; Pain 0/10; mg2 22:05 BP 159 / 84; Pulse 66; Resp 18; Pulse Ox 100% on R/A; Pain 0/10; mg2 23:41 BP 168 / 87; Pulse 60; Resp 18; Pulse Ox 100% on R/A; Pain 0/10; mg2 NIH Stroke Scale Scores: 19:39 NIHSS Score: 12 mg2 23:05 NIHSS Score: 6 gs ED Course: 18:47 Patient arrived in ED. as 18:48 Triage completed. tw2 18:49 Arm band placed on. tw2 19:01 Juan Manley MD is Attending Physician. gs 19:02 Giancarlo Cameron, YARITZA is Primary Nurse. mg2 19:08 Inserted saline lock: 22 gauge in right forearm, using aseptic technique. Blood ss collected. 19:15 No provider procedures requiring assistance completed. mg2 19:32 Stroke CXR 1 View Sent. mg2 19:32 CT Stroke Brain w/o Contrast Sent. mg2 19:32 Basic Metabolic Panel Sent. mg2 19:32 CBC with Diff Sent. mg2 19:32 Protime (+inr) Sent. mg2 19:33 Ptt, Activated Sent. mg2 19:44 Patient has correct armband on for positive identification. color television console monitor on. Pulse mg2 ox on. NIBP on. 22:32 CPK Sent. mw2 23:20 Juventino Dejesus MD is Hospitalizing Provider. 09/30 00:03 Patient admitted, IV remains in place. mg2 Administered Medications: No medications were administered Point of Care Testing: Blood Glucose: 09/29 19:05 Blood Glucose: 125 mg/dL; ss Ranges: Outcome: 23:20 Decision to Hospitalize by Provider. 09/30 00:03 Admitted to Tele accompanied by tech, via stretcher, room 407, with chart, Report mg2 called to YARITZA Aragon Condition: stable Instructed on the need for admit, Demonstrated understanding of instructions. 00:26 Patient left the ED. mg2 NIH Stroke Scale - NIH Stroke Score Date: 09/29/2018 Time: 19:39 Total Score = 12 1a. Level of Consciousness (LOC) - 0(Alert) 1b. Level of Consciousness (LOC) (Year \T\ Age) - 1(One) 1c. LOC Commands (Open \T\ Closes Eyes/Cable Installer) - 0(Both) 2. Best Gaze (Lateral Gaze Paresis) - 0(Normal) 3. Visual Field Loss - 3(Bilateral hemianopia) 4. Facial Palsy - 0(Normal) 5a. Left Arm: Motor (10-second hold) - 4(No movement) 5b. Right Arm: Motor (10-second hold) - 0(No drift) 6a. Left Leg: Motor (5-second hold - always test supine) - 2(Drift, some effort against gravity) 6b. Right Leg: Motor (5-second hold - always test supine) - 1(Drift) 7. Limb Ataxia (finger/nose \T\ heel/asif - test with eyes open) - 1(Present in one limb) 8. Sensory Loss (pinprick arms/legs/face) - 0(Normal) 9. Best Language: Aphasia (description/naming/reading) - 0(No aphasia) 10. Dysarthria (speech clarity - read or repeat words) - 0(Normal) 11. Extinction and Inattention (visual/tactile/auditory/spatial/personal) - 0(No abnormality) Initials: mg2 NIH Stroke Scale - NIH Stroke Score Date: 09/29/2018 Time: 23:05 Total Score = 6 1a. Level of Consciousness (LOC) - 0(Alert) 1b. Level of Consciousness (LOC) (Year \T\ Age) - 1(One) 1c. LOC Commands (Open \T\ Closes Eyes/Cable Installer) - 0(Both) 2. Best Gaze (Lateral Gaze Paresis) - 0(Normal) 3. Visual Field Loss - 1(Partial hemianopia) 4. Facial Palsy - 0(Normal) 5a. Left Arm: Motor (10-second hold) - 4(No movement) 5b. Right Arm: Motor (10-second hold) - 0(No drift) 6a. Left Leg: Motor (5-second hold - always test supine) - 0(No drift) 6b. Right Leg: Motor (5-second hold - always test supine) - 0(No drift) 7. Limb Ataxia (finger/nose \T\ heel/asif - test with eyes open) - 0(Absent) 8. Sensory Loss (pinprick arms/legs/face) - 0(Normal) 9. Best Language: Aphasia (description/naming/reading) - 0(No aphasia) 10. Dysarthria (speech clarity - read or repeat words) - 0(Normal) 11. Extinction and Inattention (visual/tactile/auditory/spatial/personal) - 0(No abnormality) Initials: Signatures: Madelyn Glass Shelby, RN RN Jacqueline Crawford RN RN tw2 Juan Manley MD MD [facility] Giancarlo Cameron RN RN mg2 Corrections: (The following items were deleted from the chart) 09/29 18:55 18:48 Stroke Activation: Symptom onset > 6 hours tw2 tw2 20:38 19:39 NIHSS Score: 27 mg2 mg2 22:34 22:05 Pulse 66bpm; Resp 18bpm; Pulse Ox 100% RA; Pain 0/10; mg2 mg2
[2018-09-29] MEDS ORDERED: ONDANSETRON 4 MG/2 ML VIAL IV PRN (23:51)
[2018-09-29] MEDS ORDERED: MAGNESIUM HYDROXIDE 8% 30 ML PO PRN (23:51)
[2018-09-30] MEDS: NA CHLORIDE 0.9% 1,000 ML IV SCH ×2 (01:02→13:05)
[2018-09-30 06:13] LABS: Absolute Lymphocytes (CBC) 2.3 K/uL (0.7-4.9); Absolute Monocytes 0.9 K/uL (0.1-1.3); Absolute Neutrophil 6.4 K/uL (1.8-8.0); Basophils % 0.2 % (0-1.3); Eosinophils % 1.4 % (0-4.4); Hematocrit 41.8 % (39.6-49.0); Lymphocytes % 23.8 % (15.3-44.8); MCV 96.1 fL (80-100); MPV 8.2 fL (7.6-11.3); Monocytes % 9.1 % (3.3-12.3); RBC Red Blood Cell Count 4.34 M/uL (4.33-5.43)
[2018-09-30 06:20] LABS: ALT/SGPT 24 U/L (12-78); AST/SGOT 26 U/L (15-37); Albumin 3.3 g/dL (3.4-5.0); Alkaline Phosphatase 79 U/L (45-117); BUN Blood Urea Nitrogen 19 mg/dL (7-18); Bicarbonate 25 mmol/L (21-32); Bilirubin Total 0.8 mg/dL (0.2-1.0); Glucose Level 110 mg/dL (74-106); HDL Cholesterol 49 mg/dL (40-60); LDL Cholesterol, Calculated 44 (<130); Magnesium 2.1 mg/dL (1.8-2.4); Phosphorus 3.5 mg/dL (2.5-4.9); Potassium 3.7 mmol/L (3.5-5.1); Protein, Total 6.7 g/dL (6.4-8.2); Sodium Level 142 mmol/L (136-145)
[2018-09-30] MEDS ORDERED: KCL 20 MEQ/100 mL IVPB 20 MEQ/100 ML BAG IV SCH (07:00)
[2018-09-30] MEDS ORDERED: METOPROLOL TAR 50 MG TAB PO ONE (08:47)
[2018-09-30] MEDS ORDERED: HYDRALAZINE HCL 20 MG/ML VIAL IV ONE (08:47)
[2018-09-30] MEDS: CLOPIDOGREL 75 MG TABLET PO SCH (08:56)
[2018-09-30] MEDS: ENOXAPARIN 40 MG/0.4 ML SQ SCH (08:57)
[2018-09-30] MEDS: ASPIRIN EC 81 MG TAB PO SCH (08:57)
--- NOTE | 2018-09-30 09:11 | P.HP ---
Certification for Inpatient Patient admitted to: Inpatient With expected LOS: >2 Midnights Patient will require the following post-hospital care: Assisted Practitioner: I am a practitioner with admitting privileges, knowledge of patient current condition, hospital course, and medical plan of care. Services: Services provided to patient in accordance with Admission requirements found in Title 42 Section 412.3 of the Code of Federal Regulations Patient History Date of Service: 09/30/18 Reason for admission: Acute CVA History of Present Illness: The patient is a 60-year-old gentleman who has a history of acute CVA with left-sided weakness. Patient is unable to really move his left arm. He states he has been working with physical therapy and is using a walker. He came into the emergency room because his weakness worsened. He states he was able to move his left arm better than over the last few hours. The weakness actually started around 11:00 a.m.. heat and really complain until later in the afternoon. By the time he was out of the window for tPA. Decision was made to admit the patient for acute CVA. Patient will need further testing including MRI. Allergies No Known Allergies Allergy (Verified 09/30/18 01:25) Home Medications: Lisinopril 10 mg PO DAILY 05/06/17 Simvastatin 1 tab PO BEDTIME 05/06/17 Aspirin [Aspirin EC 81 MG] 1 tab PO DAILY 02/23/18 Gabapentin [Gralise] 300 mg PO BID 02/23/18 Trazodone [Desyrel] 50 mg PO BEDTIME PRN PRN 09/30/18 - Past Medical/Surgical History Diabetic: No -: Stroke-2016 -: Hypertension Past Surgical History: Patient denies surgical history - Family History Father Medical History: Other (see notes) Notes: of old age Mother Medical History: Hypertension - Social History Smoking Status: Unknown if ever smoked Alcohol use: Yes CD- Drugs: No Caffeine use: No Place of Residence: Home Review of Systems 10-point ROS is otherwise unremarkable Physical Examination - Vital Signs Temperature: 98.2 F Blood Pressure: 195/82 Pulse: 78 Respirations: 20 Pulse Ox (%): 100 - Physical Exam General: Alert, In no apparent distress, Oriented x3 HEENT: Atraumatic, PERRLA, Mucous membr. moist/pink, EOMI, Sclerae nonicteric Neck: Supple, 2+ carotid pulse no bruit, No LAD, Without JVD or thyroid abnormality Respiratory: Clear to auscultation bilaterally, Normal air movement Cardiovascular: Regular rate/rhythm, Normal S1 S2, No murmurs Gastrointestinal: Normal bowel sounds, Soft and benign, Non-distended, No tenderness Musculoskeletal: No clubbing, No swelling, No tenderness Integumentary: No rashes Neurological: Normal speech, Normal tone, Sensation intact, Cranial nerves 3-12 intact, Normal affect, Abnormal gait, Abnormal strength Lymphatics: No axilla or inguinal lymphadenopathy - Studies Laboratory Data (last 24 hrs) 09/29/18 19:11: PT 11.8, INR 1.00, APTT 27.8 09/29/18 19:11: WBC 11.3 H, Hgb 15.4, Hct 44.6, Plt Count 191 09/29/18 19:11: Sodium 142, Potassium 4.0, BUN 25 H, Creatinine 0.90, Glucose 114 H Assessment & Plan - Problems (Diagnosis) (1) Acute ischemic stroke Current Visit: No Status: Acute (2) History of ischemic stroke in prior three months Current Visit: No Status: Acute (3) Essential hypertension Onset Date: 02/24/18 Current Visit: No Status: Chronic (4) Hyperlipidemia Current Visit: No Status: Chronic Qualifiers: Hyperlipidemia type: mixed hyperlipidemia Qualified Code(s): E78.2 - Mixed hyperlipidemia (5) Weakness Onset Date: 05/21/17 Current Visit: No Status: Chronic (6) Rhabdomyolysis Current Visit: No Status: Resolved Qualifiers: Rhabdomyolysis type: non-traumatic Qualified Code(s): M62.82 - Rhabdomyolysis - Plan 1. MRI of the brain 2. Echocardiogram and carotid Doppler needs to be reviewed 3. Anti-platelet therapy x2 and statin therapy 4. Neurology consultation 5. Physical therapy/occupational therapy/speech therapy evaluation 6. Modified barium swallow study if dysphagia 7. Hemodynamic unstability 8. DVT prophylaxis Discharge Plan: Halfway Plan to discharge in: Greater than 2 days - Advance Directives Does patient have a Living Will: No Does patient have a Durable POA for Healthcare: No - Code Status/Comfort Care Code Status Assessed: Yes Code Status: Full Code Critical Care: No Time Spent Managing PTS Care (In Minutes): 50
--- NOTE | 2018-09-30 11:29 | EKG ---
Test Date: 2018-09-29 Test Time: 19:17:10 Insurance Processor: MG MEASUREMENT RESULTS: Intervals: Rate: 67 ID: [id number] QRSD: 70 QT: 388 QTc: 409 [place]: P: 66 ID: [id number] QRS: 7 T: -7 INTERPRETIVE STATEMENTS: Normal sinus rhythm Possible Inferior infarct, age undetermined Cannot rule out Anterior infarct, age undetermined Abnormal ECG Compared to ECG 08/11/2018 07:11:34 Atrial premature complex(es) no longer present Myocardial infarct finding still present Electronically Signed On 09-30-18 11:27:50 LAST TRIMMER by Kyle Rincon
[2018-09-30 11:44] LABS: Creatine Phosphokinase 321 U/L (39-308); Troponin I < 0.02 ng/mL (0.0-0.045)
[2018-09-30] MEDS ORDERED: LORazepam 2 MG/ML VIAL IV ONE ×2 (14:37→15:12)
--- NOTE | 2018-09-30 16:29 | RAD REPORT ---
EXAM DESCRIPTION: RAD - Chest Pa And Lat (2 Views) - 09/30/2018 2:50 pm CLINICAL HISTORY: Stroke protocol chest film COMPARISON: September 29 TECHNIQUE: AP and lateral views obtained with the patient seated in a wheelchair. FINDINGS: The lungs are fibrotic. No pulmonary edema, consolidation or acute lung parenchymal proces s. No failure or volume overload. Heart size is normal and central vasculature is within normal cardoza its. No pleural effusion or pneumothorax seen. No acute bony finding noted. No aortic abnormality. IMPRESSION: Chronic interstitial lung disease similar to comparison. No acute finding suspected.
--- NOTE | 2018-09-30 16:33 | RAD REPORT ---
EXAM DESCRIPTION: US - CP - 09/30/2018 2:19 pm CLINICAL HISTORY: Stroke COMPARISON: None. TECHNIQUE: Real-time sonographic evaluation of both carotid systems was performed. Ndiaye scale and Do ppler interrogation were performed with waveform tracing bilaterally. FINDINGS: Normal high resistance waveforms are noted in both external carotid arteries. The common c arotid arteries and internal carotid arteries show normal low resistance waveforms. Mild calcified and noncalcified plaquing changes are present. No significant luminal narrowing. No di ssection changes. Right-sided peak systolic and end-diastolic velocity values are normal range with n ormal right-side ICA/CCA ratio. Left external carotid velocity is elevated. External carotid stenoses are generally not clinically si gnificant. The 1.7 left-side ICA/CCA ratio is elevated due to a comparatively small CCA velocity. A t rue significant left-sided stenosis is doubtful. Correlation can be made with pending MRA imaging. Antegrade flow seen in both vertebral arteries. Velocity values and ratios were recorded and are retained in the patient's imaging records. IMPRESSION: Mild calcified and noncalcified plaquing changes are identifiable. Hemodynamically significant stenosis is not identified. Left ICA/ CCA ratio is elevated believed to be technical rather than true stenosis. Correlation can b e made with pending MRA imaging.
[2018-09-30] MEDS: ATORVASTATIN 20 MG TAB PO SCH (21:13)
[2018-09-30] MEDS: HYDRALAZINE HCL 20 MG/ML VIAL IV PRN (21:19)
[2018-10-01] MEDS: NA CHLORIDE 0.9% 1,000 ML IV SCH (02:25)
[2018-10-01 06:27] LABS: BUN Blood Urea Nitrogen 8 mg/dL (7-18); Bicarbonate 21 mmol/L (21-32); Glucose Level 105 mg/dL (74-106); Potassium 3.3 mmol/L (3.5-5.1); Sodium Level 140 mmol/L (136-145)
[2018-10-01] MEDS ORDERED: POTASSIUM 25 MEQ EFFERV TAB PO ONE (07:14)
[2018-10-01] MEDS: ENOXAPARIN 40 MG/0.4 ML SQ SCH (08:32)
[2018-10-01] MEDS: ASPIRIN EC 81 MG TAB PO SCH (08:32)
[2018-10-01] MEDS: CLOPIDOGREL 75 MG TABLET PO SCH (08:32)
[2018-10-01] MEDS: ACETAMINOPHEN 500 MG TAB PO PRN ×2 (11:35→21:26)
--- NOTE | 2018-10-01 15:57 | P.PN ---
Subjective Date of Service: 10/01/18 Chief Complaint: Acute CVA Subjective: No new changes, No C/O voiced Patient seen and examined at bedside. No family at bedside. Chart reviewed and case discussed with nursing staff. Patient is still confused, agitated. Try to get out of bed. Requiring a sitter. Review of Systems As noted Physical Examination - Vital Signs Temperature: 100.1 F Blood Pressure: 200/96 Pulse: 100 Respirations: 19 Pulse Ox (%): 94 - Physical Exam General: In no apparent distress, Confused, Other (Agitated) HEENT: Atraumatic, PERRLA, EOMI Neck: Supple, JVD not distended Respiratory: Clear to auscultation bilaterally, Normal air movement Cardiovascular: Regular rate/rhythm, Normal S1 S2 Gastrointestinal: Normal bowel sounds, No tenderness Musculoskeletal: No tenderness Integumentary: No rashes Neurological: Normal speech, Normal tone, Normal affect Lymphatics: No axilla or inguinal lymphadenopathy Assessment And Plan - Plan - Problems (Diagnosis) (1) Acute ischemic stroke Current Visit: No Status: Acute (2) History of ischemic stroke in prior three months Current Visit: No Status: Acute (3) Essential hypertension Onset Date: 02/24/18 Current Visit: No Status: Chronic (4) Hyperlipidemia Current Visit: No Status: Chronic Qualifiers: Hyperlipidemia type: mixed hyperlipidemia Qualified Code(s): E78.2 - Mixed hyperlipidemia (5) Weakness Onset Date: 05/21/17 Current Visit: No Status: Chronic (6) Rhabdomyolysis Current Visit: No Status: Resolved Qualifiers: Rhabdomyolysis type: non-traumatic Qualified Code(s): M62.82 - Rhabdomyolysis - Plan 1. MRI of the brain, unable to due to agitation. Patient agitated even after getting 2 mg of Ativan. 2. Echocardiogram and carotid Doppler 3. Anti-platelet therapy x2 and statin therapy 4. Neurology consultation. Recommendations appreciated. Recommend correction facility admission. 5. Physical therapy/occupational therapy/speech therapy evaluation. Not really following commands very well. 6. Past bedside swallow study, heart healthy diet at this time. DVT prophylaxis: Aspirin and Plavix GI prophylaxis: None Diet: Heart healthy Disposition: Medically stable. Pending placement
[2018-10-01] MEDS ORDERED: POTASSIUM CL SA 10 MEQ TAB PO ONE (21:00)
--- NOTE | 2018-10-01 21:01 | CON ---
Reason For Consultation: Consultation called because of possible acute stroke. History Of Present Illness: Mr. Foy is a 68-year-old patient, who has had multiple strokes and solomon s dementia, was residing with his cousin after his second stroke when he developed worsening left-olivia ed weakness, this occurred 2 days ago. The patient's second stroke, which occurred prior to this adm ission caused left-sided face, arm, and leg weakness. However, he is able to work with home health physical therapist apy. He has a walker and ambulate according to his brother, who was in the room with him. As he dev eloped worsening weakness on the left side, he was unable to lift left arm and brought back in to [facility]. His head CT scan did not show any acute ischemic or hemorrhagic change. The study did show large areas of old strokes bilaterally and a large old right internal capsule infarct consi stent with the patient's left-sided weakness. An attempt was made to get brain MRI, however, the pat ient would not remain still and the study could not be done. Carotid artery ultrasound showed mild c alcified and noncalcified plaque, but hemodynamically significant stenosis is not identified. The patient's brother notes that his left arm actually began to return to his baseline level of funct ioning after his admission and it has been now at least 24 hours that he is able to move that arm abo ve the head and does move the left leg as well. Past Medical History: Hypertension, prior stroke in November 2016. Past Surgical History: None. Medications: Lisinopril 10 mg daily, simvastatin at bedtime, aspirin 81 mg daily, gabapentin 300 mg twice daily, trazodone 50 mg at bedtime. Allergies: NO KNOWN DRUG ALLERGIES. Family History: Positive for hypertension in mother. Social History: Does use alcohol. In the past, smoked. No current cigarette smoking. No illegal d rug use. Review of Systems: Per the patient's brother, he has no recent fevers, chills, nausea, vomiting, arthralgias, myalgias, headaches, weight change, rash, or psychiatric issues. He does have dementia. Physical Examination: Vital Signs: Blood pressure 183/83, pulse of 105, respiratory rate 16, temperature 100.3, oxygen sat uration 95%. General: Mr. Foy is resting in bed. He is in no acute distress. He does appear disheveled. HEENT: Poor dentition. Otherwise, he is normocephalic and atraumatic. Sclera does not appear icter ic. Oropharynx does appear pink and moist. Neck: Supple. Chest: Clear. Heart: Regular. Extremities: Show no significant edema or cyanosis. Neurological: The patient is disoriented to situation, place, time. Oriented to person and follows simple commands without difficulty. More complex 2 or 3-step commands required repeated encouragemen t. Cranial nerve exam does not show an obvious asymmetry of his face. He does respond to touch from both sides of the face. In terms of his upper extremities and left arm, he does have mild weakness compared to the right. At least 3+ out of 5 to 4- out of 5 strength on left. On the right, 4+ out o f 5 strength proximally and distally. Lower extremities, he able to lift both legs off the bed, held for a count of 10. Sensory exam, appears intact in the legs and arms. Coordination is slow in the upper and lower extremities. Some dysmetria noted on the left side. The patient has not been ambula tory since his last stroke in November 2016. Laboratory Studies: Actually complete blood count with differential is normal. INR is 1. Chemistri es show sodium 140, potassium 3.3, chloride 109, carbon dioxide 21, BUN 8, creatinine 0.8. Creatine kinase 321. HDL cholesterol 49, LDL 44, total cholesterol 114, triglycerides 107. Liver function st udies are normal. Electrocardiogram shows normal sinus rhythm, possible inferior infarct, age undete rmined. Assessment: Mr. Srinivas Foy is a 68-year-old patient with multiple chronic strokes and likely, the patient has had a recent stroke. His symptoms may have been unmasked recently to produce more left- sided weakness, which seems to have resolved to his baseline. He does not appear to have a systemic or urinary tract infection or pneumonia. His chest x-ray did show chronic interstitial lung disease, but no acute findings. It is possible that the patient has had another transient ischemic attack. Plan: 1.Continue taking aspirin 81 mg daily and Plavix 75 mg daily. 2.Continue Lipitor 80 mg at bedtime. 3.Continue with Lovenox 40 mg subcutaneously for DVT prophylaxis. 4.The patient may have permissive hypertension. 5.He should have a bedside evaluation swallow done. 6.He should be evaluated by Physical and Occupational Therapy for his next level of care including t herapy, which at this point looks more amenable to custodial given the patient's inability to f ollow more than 1 step commands and his dementia and his inability to ambulate since November 2016. At this point, he may be discharged on medications as indicated above. [facility] 1 month. PEDRO Voice ID: [id number] Report ID: [id number]
[2018-10-01] MEDS: HYDRALAZINE HCL 20 MG/ML VIAL IV PRN (21:27)
[2018-10-01] MEDS: ATORVASTATIN 20 MG TAB PO SCH (21:28)
[2018-10-02 06:23] LABS: BUN Blood Urea Nitrogen 13 mg/dL (7-18); Bicarbonate 21 mmol/L (21-32); Glucose Level 107 mg/dL (74-106); Potassium 3.5 mmol/L (3.5-5.1); Sodium Level 139 mmol/L (136-145)
[2018-10-02] MEDS: HYDRALAZINE HCL 20 MG/ML VIAL IV PRN (07:47)
[2018-10-02] MEDS: ENOXAPARIN 40 MG/0.4 ML SQ SCH (08:36)
[2018-10-02] MEDS: ASPIRIN EC 81 MG TAB PO SCH (08:37)
[2018-10-02] MEDS: CLOPIDOGREL 75 MG TABLET PO SCH (08:37)
[2018-10-02] MEDS ORDERED: POTASSIUM 25 MEQ EFFERV TAB PO ONE (09:00)
[2018-10-02] MEDS: ACETAMINOPHEN 500 MG TAB PO PRN (13:13)
--- NOTE | 2018-10-02 13:29 | P.PN ---
Subjective Date of Service: 10/02/18 Chief Complaint: Acute CVA Subjective: No new changes, No C/O voiced Patient seen and examined at bedside. No family at bedside. Chart reviewed and case discussed with nursing staff. Patient is still confused, agitated. Try to get out of bed. Requiring a sitter. Review of Systems As noted Physical Examination - Vital Signs Temperature: 99.4 F Blood Pressure: 144/85 Pulse: 107 Respirations: 21 Pulse Ox (%): 95 - Physical Exam General: In no apparent distress, Confused HEENT: Atraumatic, PERRLA, EOMI Neck: Supple, JVD not distended Respiratory: Clear to auscultation bilaterally, Normal air movement Cardiovascular: Regular rate/rhythm, Normal S1 S2 Gastrointestinal: Normal bowel sounds, No tenderness Musculoskeletal: No tenderness Integumentary: No rashes Neurological: Other (Left-sided residual weakness from history of prior CVA), Abnormal strength, Abnormal tone Assessment And Plan - Plan - Problems (Diagnosis) (1) Acute ischemic stroke Current Visit: No Status: Acute (2) History of ischemic stroke in prior three months Current Visit: No Status: Acute (3) Essential hypertension Onset Date: 02/24/18 Current Visit: No Status: Chronic (4) Hyperlipidemia Current Visit: No Status: Chronic Qualifiers: Hyperlipidemia type: mixed hyperlipidemia Qualified Code(s): E78.2 - Mixed hyperlipidemia (5) Weakness Onset Date: 05/21/17 Current Visit: No Status: Chronic (6) Rhabdomyolysis Current Visit: No Status: Resolved Qualifiers: Rhabdomyolysis type: non-traumatic Qualified Code(s): M62.82 - Rhabdomyolysis - Plan 1. MRI of the brain, unable to due to agitation. Patient agitated even after getting 2 mg of Ativan. 2. Echocardiogram and carotid Doppler 3. Anti-platelet therapy x2 and statin therapy 4. Neurology consultation. Recommendations appreciated. Recommend longterm facility admission. 5. Physical therapy/occupational therapy/speech therapy evaluation. Not really following commands very well. 6. Passed bedside swallow study, heart healthy diet at this time. DVT prophylaxis: Aspirin and Plavix GI prophylaxis: None Diet: Heart healthy Disposition: Medically stable. Pending placement
[2018-10-02] MEDS: LISINOPRIL 10 MG TAB PO SCH (14:23)
[2018-10-02] MEDS: ATORVASTATIN 20 MG TAB PO SCH (20:46)
[2018-10-02] MEDS: GABAPENTIN 300 MG CAP PO SCH (20:46)
[2018-10-03 01:39] VITALS: BMI 25.6
[2018-10-03 06:06] LABS: BUN Blood Urea Nitrogen 23 mg/dL (7-18); Bicarbonate 23 mmol/L (21-32); Glucose Level 102 mg/dL (74-106); Potassium 3.6 mmol/L (3.5-5.1); Sodium Level 143 mmol/L (136-145)
[2018-10-03] MEDS ORDERED: POTASSIUM CL SA 10 MEQ TAB PO ONE (06:30)
[2018-10-03] MEDS: CLOPIDOGREL 75 MG TABLET PO SCH (08:53)
[2018-10-03] MEDS: ASPIRIN EC 81 MG TAB PO SCH (08:53)
[2018-10-03] MEDS: LISINOPRIL 10 MG TAB PO SCH (08:53)
[2018-10-03] MEDS: GABAPENTIN 300 MG CAP PO SCH ×2 (08:54→20:51)
[2018-10-03] MEDS: ENOXAPARIN 40 MG/0.4 ML SQ SCH (08:54)
[2018-10-03] MEDS ORDERED: LISINOPRIL 10 MG TAB PO SCH (09:00)
--- NOTE | 2018-10-03 12:00 | P.PN ---
Subjective Date of Service: 10/03/18 Chief Complaint: Acute CVA Subjective: No C/O voiced Patient seen and examined at bedside. No family at bedside. Chart reviewed and case discussed with nursing staff. Patient is still confused, agitated. Try to get out of bed. Requiring a sitter. Review of Systems As noted Physical Examination - Vital Signs Temperature: 98.7 F Blood Pressure: 140/72 Pulse: 82 Respirations: 18 Pulse Ox (%): 96 - Physical Exam General: In no apparent distress, Confused HEENT: Atraumatic, PERRLA, EOMI Neck: Supple, JVD not distended Respiratory: Clear to auscultation bilaterally, Normal air movement Cardiovascular: Regular rate/rhythm, Normal S1 S2 Gastrointestinal: Normal bowel sounds, No tenderness Musculoskeletal: No tenderness Integumentary: No rashes Neurological: Normal speech, Normal tone, Normal affect Lymphatics: No axilla or inguinal lymphadenopathy Assessment And Plan - Plan - Problems (Diagnosis) (1) Acute ischemic stroke Current Visit: No Status: Acute (2) History of ischemic stroke in prior three months Current Visit: No Status: Acute (3) Essential hypertension Onset Date: 02/24/18 Current Visit: No Status: Chronic (4) Hyperlipidemia Current Visit: No Status: Chronic Qualifiers: Hyperlipidemia type: mixed hyperlipidemia Qualified Code(s): E78.2 - Mixed hyperlipidemia (5) Weakness Onset Date: 05/21/17 Current Visit: No Status: Chronic (6) Rhabdomyolysis Current Visit: No Status: Resolved Qualifiers: Rhabdomyolysis type: non-traumatic Qualified Code(s): M62.82 - Rhabdomyolysis - Plan 1. MRI of the brain, unable to due to agitation. Patient agitated even after getting 2 mg of Ativan. 2. Echocardiogram and carotid Doppler 3. Anti-platelet therapy x2 and statin therapy 4. Neurology consultation. Recommendations appreciated. Recommend [facility]. 5. Physical therapy/occupational therapy/speech therapy evaluation. Not really following commands very well. 6. Passed bedside swallow study, heart healthy diet at this time. DVT prophylaxis: Aspirin and Plavix GI prophylaxis: None Diet: Heart healthy Disposition: Medically stable. Pending placement
[2018-10-03] MEDS: ATORVASTATIN 20 MG TAB PO SCH (20:51)
[2018-10-04 08:03] LABS: BUN Blood Urea Nitrogen 28 mg/dL (7-18); Bicarbonate 25 mmol/L (21-32); Glucose Level 101 mg/dL (74-106); Potassium 3.8 mmol/L (3.5-5.1); Sodium Level 142 mmol/L (136-145)
[2018-10-04] MEDS: ENOXAPARIN 40 MG/0.4 ML SQ SCH (10:23)
[2018-10-04] MEDS: GABAPENTIN 300 MG CAP PO SCH ×2 (10:24→21:10)
[2018-10-04] MEDS: LISINOPRIL 10 MG TAB PO SCH (10:24)
[2018-10-04] MEDS: ASPIRIN EC 81 MG TAB PO SCH (10:24)
[2018-10-04] MEDS: CLOPIDOGREL 75 MG TABLET PO SCH (10:25)
--- NOTE | 2018-10-04 16:03 | P.PN ---
Subjective Date of Service: 10/04/18 Chief Complaint: Acute CVA Subjective: No new changes, No C/O voiced Patient seen and examined at bedside. No family at bedside. Chart reviewed and case discussed with nursing staff. Patient still confused, the less agitated. Has had a sitter since he has been admitted.. Review of Systems As noted Physical Examination - Vital Signs Temperature: 98 F Blood Pressure: 141/80 Pulse: 96 Respirations: 18 Pulse Ox (%): 96 - Physical Exam General: In no apparent distress, Confused HEENT: Atraumatic, PERRLA, EOMI Neck: Supple, JVD not distended Respiratory: Clear to auscultation bilaterally, Normal air movement Cardiovascular: Regular rate/rhythm, Normal S1 S2 Gastrointestinal: Normal bowel sounds, No tenderness Musculoskeletal: No tenderness Integumentary: No rashes Lymphatics: No axilla or inguinal lymphadenopathy Assessment And Plan - Plan - Problems (Diagnosis) (1) Acute ischemic stroke (2) History of ischemic stroke in prior three months (3) Essential hypertension (4) Hyperlipidemia (5) Weakness (6) Rhabdomyolysis (7) legally blind - Plan 1. MRI of the brain, unable to be done due to agitation. Patient agitated even after getting 2 mg of Ativan. 2. Carotid Doppler without any hemodynamically significant stenosis 3. Continue Anti-platelet therapy x2 and statin therapy 4. Neurology consultation. Recommendations appreciated. Recommend halfway facility admission. 5. Physical therapy/occupational therapy/speech therapy evaluation. Not really following commands very well. 6. Passed bedside swallow study, heart healthy diet at this time. DVT prophylaxis: Aspirin and Plavix GI prophylaxis: None Diet: Heart healthy Disposition: Medically stable. Pending placement; patient was previously living with brother, unsure of financial status, unable to get in touch with brother. Social work tried to get a hold of the daughter, who states that all children are strange from patient. It seems that we are having a difficult time finding placement for this patient due to his criminal history background. He is not a safe discharge home, as patient states he will be living by himself? Social work involved. Physician Review: Patient Assessed, Agree with Above Assessment and Plan
[2018-10-04] MEDS: HYDRALAZINE HCL 20 MG/ML VIAL IV PRN (21:08)
[2018-10-04] MEDS: ATORVASTATIN 20 MG TAB PO SCH (21:08)
[2018-10-05 06:37] LABS: BUN Blood Urea Nitrogen 23 mg/dL (7-18); Bicarbonate 25 mmol/L (21-32); Glucose Level 102 mg/dL (74-106); Potassium 3.7 mmol/L (3.5-5.1); Sodium Level 139 mmol/L (136-145)
[2018-10-05] MEDS: CLOPIDOGREL 75 MG TABLET PO SCH (08:09)
[2018-10-05] MEDS: GABAPENTIN 300 MG CAP PO SCH ×2 (08:09→20:17)
[2018-10-05] MEDS: ASPIRIN EC 81 MG TAB PO SCH (08:09)
[2018-10-05] MEDS: LISINOPRIL 10 MG TAB PO SCH (08:09)
[2018-10-05] MEDS: ENOXAPARIN 40 MG/0.4 ML SQ SCH (08:09)
[2018-10-05] MEDS ORDERED: POTASSIUM 25 MEQ EFFERV TAB PO ONE (09:00)
--- NOTE | 2018-10-05 19:51 | PN ---
Date of Progress Note: 10/05/2018 Subjective: Patient seen and examined. Chart reviewed and case discussed with RN. The patient debbie es any acute events overnight. Has been inappropriate with staff. Code Status: Full. Medications: List reviewed. Physical Examination: Vital Signs: Temperature 98.5, heart rate 91, blood pressure 139/66, respirations 16, O2 97% on room air. General: Awake, alert, oriented x3, not in any acute distress. Elderly male. CV: S1, S2. Peripheral pulses present. Regular rate and rhythm. Respiratory: Moving air well bilaterally. No wheezing. Gastrointestinal: Abdomen is soft, nontender, nondistended. Positive bowel sounds. Extremities: No clubbing, cyanosis, or edema. Neuro: Nonfocal. Laboratory Data: Sodium 139, potassium 3.7, chloride 108, CO2 25, BUN 23, creatinine 0.7, glucose 10 2, calcium 9.2. Assessment: A 68-year-old male with: 1.Acute ischemic stroke. We will continue with anti-platelet therapy and statin therapy. The patie nt not cooperating with MRI despite premedication. 2.History of ischemic stroke for 3 months. 3.Essential hypertension, stable. 4.Mixed hyperlipidemia, continue statin. 5.Generalized weakness, PT evaluation. 6.Rhabdomyolysis, resolved. 7.Hypokalemia, corrected. 8.Legally blind. Plan: We will likely discharge back to his brother's residence where the patient has been residing p reviously, unable to get the patient accepted to [facility] due to his criminal history. Other fam madelaine members including kids do not have any contact with him and are estranged. We will work with [facility] e management regarding placement. Again, likely discharge back to his previous residence at the [facility] her's house. SA/MODL Voice ID: [id number] Report ID: [id number]
[2018-10-05] MEDS: ATORVASTATIN 20 MG TAB PO SCH (20:21)
[2018-10-06] MEDS: ENOXAPARIN 40 MG/0.4 ML SQ SCH (10:28)
[2018-10-06] MEDS: CLOPIDOGREL 75 MG TABLET PO SCH (10:28)
[2018-10-06] MEDS: GABAPENTIN 300 MG CAP PO SCH ×2 (10:28→21:01)
[2018-10-06] MEDS: LISINOPRIL 10 MG TAB PO SCH (10:28)
[2018-10-06] MEDS: ASPIRIN EC 81 MG TAB PO SCH (10:28)
--- NOTE | 2018-10-06 18:25 | PN ---
Date of Progress Note: 10/06/2018 Subjective: The patient is seen and examined. Chart reviewed, and case discussed with RN. The kan ent has no complaints overnight. Brother at the bedside. The patient has been declined by the [facility] in [place], has been referred to the facility in [place], [place], which do take patients with his criminal background. Medications: List reviewed. Physical Examination: Vital Signs: Temperature 98.2, heart rate 92, blood pressure 136/81, respirations 20, O2 of 98% on r oom air. General: Awake, alert, oriented x3. No acute distress. CV: S1, S2. No murmurs. Respiratory: Moving air well bilaterally. No wheezing. Gastrointestinal: Abdomen is soft, nontender, nondistended. Positive bowel sounds. Extremities: No clubbing, cyanosis, or edema. Neuro: No focal neurological deficit. Speech is normal. Assessment And Plan: A 68-year-old male with: 1.Acute ischemic stroke. Continue antiplatelet and statin therapy. The patient noncooperative with MRI despite premedication. Dr. Machado on board. 2.History of ischemic stroke. 3.Essential hypertension, stable. 4.Mixed hyperlipidemia. Continue statin. 5.Generalized weakness. Continue PT eval. 6.Rhabdomyolysis, resolved. 7.Hypokalemia, corrected. 8.Legally blind. Plan: The patient now being referred to facility in [place], [place] due to his criminal background. We will await acceptance and discharge once accepted. /MODCristina Voice ID: [id number] Report ID: [id number]
[2018-10-06] MEDS: ATORVASTATIN 20 MG TAB PO SCH (21:01)
[2018-10-07] MEDS: HYDRALAZINE HCL 20 MG/ML VIAL IV PRN ×2 (00:52→18:07)
[2018-10-07] MEDS: LISINOPRIL 10 MG TAB PO SCH (08:56)
[2018-10-07] MEDS: ASPIRIN EC 81 MG TAB PO SCH (08:56)
[2018-10-07] MEDS: CLOPIDOGREL 75 MG TABLET PO SCH (08:57)
[2018-10-07] MEDS: ENOXAPARIN 40 MG/0.4 ML SQ SCH (08:57)
[2018-10-07] MEDS: GABAPENTIN 300 MG CAP PO SCH ×2 (08:57→21:19)
--- NOTE | 2018-10-07 20:19 | PN ---
Date of Progress Note: 10/07/2018 Subjective: Patient seen and examined. Chart reviewed and case discussed with RN. The patient does not have any complaints. Sitter at the bedside. Medications: List reviewed. Physical Examination: Vital Signs: Temperature 97.9, heart rate is 91, blood pressure 141/82, respirations 18, O2 95% on r oom air. General: Awake, alert, oriented x3, not in acute distress. Elderly male. CV: S1, S2. No murmurs. Peripheral pulses present. Respiratory: Moving air well bilaterally. No wheezing. Gastrointestinal: Abdomen is soft, nontender, nondistended. Positive bowel sounds. Extremities: No clubbing, cyanosis, or edema. Neuro: The patient does have some mild left-sided weakness. Laboratory Data: Pending. Assessment: A 68-year-old male with: 1.Acute cerebrovascular accident, ischemic. Continue antiplatelet and statin therapy. The patient unable to cooperate with MRI. Neurology on board. 2.Essential hypertension, stable. 3.Mixed hyperlipidemia. Continue statin. 4.Generalized weakness. The patient refusing to work with Physical Therapy. 5.Rhabdomyolysis, resolved. 6.Hypokalemia, corrected. 7.Legally blind. Plan: Awaiting acceptance to facility at [place] that will accept the patient given his background and criminal history. Unsafe discharge to home. Family is not willing to keep the patient either. GI and DVT prophylaxis addressed. /AZ Voice ID: [id number] Report ID: [id number]
[2018-10-07] MEDS: ATORVASTATIN 20 MG TAB PO SCH (21:19)
[2018-10-08] MEDS: ASPIRIN EC 81 MG TAB PO SCH (08:42)
[2018-10-08] MEDS: CLOPIDOGREL 75 MG TABLET PO SCH (08:42)
[2018-10-08] MEDS: ENOXAPARIN 40 MG/0.4 ML SQ SCH (08:42)
[2018-10-08] MEDS: GABAPENTIN 300 MG CAP PO SCH ×2 (08:43→21:03)
[2018-10-08] MEDS: LISINOPRIL 10 MG TAB PO SCH (08:43)
[2018-10-08] MEDS ORDERED: POTASSIUM 25 MEQ EFFERV TAB PO ONE (09:00)
--- NOTE | 2018-10-08 19:18 | PN ---
Date of Progress Note: 10/08/2018 Subjective: The patient is seen and examined. Chart reviewed, and case discussed with RN. The kan ent denies any significant complaints. Medications: List reviewed. Physical Examination: Vital Signs: Temperature 97.9, heart rate 96, blood pressure 132/69, respirations 18, O2 of 98% on r oom air. General: Awake, alert, oriented x3. No acute distress. CV: S1, S2. No murmurs. Respiratory: Moving air well bilaterally. No wheezing. Gastrointestinal: Abdomen is soft, nontender, nondistended. Positive bowel sounds. Extremities: No clubbing, cyanosis, or edema. Neuro: The patient does have some focal weakness. Laboratory Data: Pending. Assessment: A 68-year-old male with: 1.Acute ischemic stroke. We will continue with Plavix, statin. Neurology consulted. The patient n oncooperative with MRI. 2.Essential hypertension, stable. 3.Mixed hyperlipidemia. Continue statin. 4.Generalized weakness. The patient is working with Physical Therapy. 5.Acute rhabdomyolysis, resolved. 6.Hypokalemia, corrected. We will monitor electrolytes. 7.Legally blind. 8.Gastrointestinal and deep venous thrombosis prophylaxis. Plan: Placement pending at [place]. Difficulty placing the patient due to his background and damion inal history. /AZ Voice ID: [id number] Report ID: [id number]
[2018-10-08] MEDS: ATORVASTATIN 20 MG TAB PO SCH (21:03)
[2018-10-09 08:47] LABS: BUN Blood Urea Nitrogen 17 mg/dL (7-18); Bicarbonate 27 mmol/L (21-32); Glucose Level 92 mg/dL (74-106); Potassium 3.9 mmol/L (3.5-5.1); Sodium Level 140 mmol/L (136-145)
[2018-10-09] MEDS: CLOPIDOGREL 75 MG TABLET PO SCH (09:03)
[2018-10-09] MEDS: LISINOPRIL 10 MG TAB PO SCH (09:03)
[2018-10-09] MEDS: ENOXAPARIN 40 MG/0.4 ML SQ SCH (09:03)
[2018-10-09] MEDS: ASPIRIN EC 81 MG TAB PO SCH (09:03)
[2018-10-09] MEDS: GABAPENTIN 300 MG CAP PO SCH ×2 (09:03→20:54)
[2018-10-09] MEDS ORDERED: POTASSIUM 25 MEQ EFFERV TAB PO ONE (12:00)
--- NOTE | 2018-10-09 18:01 | PN ---
History: The patient is seen and examined. Chart reviewed and case discussed with RN. No acute destiny nts overnight. Sitter has been discontinued. Medications: List reviewed. Physical Examination: Vital Signs: Temperature is 98.1, heart rate 82, blood pressure 135/76, respirations 20, O2 98% on r oom air. General: Awake, alert, oriented, in no acute distress. CV: S1, S2. No murmurs. Respiratory: Moving air well bilaterally. No wheezing. Gastrointestinal: Abdomen is soft. Nontender. Nondistention. Positive bowel sounds. Extremities: No clubbing, cyanosis, or edema. Neuro: The patient has no deficit, weakness. Laboratory Data: Sodium 140, potassium 3.9, chloride 106, CO2 27, BUN 17, creatinine 0.8, glucose 92 , calcium 9. Assessment And Plan: A 68-year-old male with: 1.Acute ischemic stroke. Continue Plavix, statin. Workup unable to be completed with the MRI as pa tient is noncooperative. 2.Essential hypertension, stable. 3.Mixed hyperlipidemia, on statin. 4.Generalized weakness, improving. Continue with physical therapy. 5.Acute rhabdomyolysis, resolved. 6.Hypokalemia, corrected. Repeat level was normal. 7.Legally blind. 8.Gastrointestinal and deep venous thrombosis prophylaxis addressed. Plan: Pending placement at [place] versus home with family, and the family is refusing to both fin jhony the paperwork at [place] or accept the patient back to home. We will discuss further with Case Keli desai. /AZ Voice ID: [id number] Report ID: [id number]
[2018-10-09] MEDS: ATORVASTATIN 20 MG TAB PO SCH (20:54)
[2018-10-10 06:45] LABS: BUN Blood Urea Nitrogen 16 mg/dL (7-18); Bicarbonate 27 mmol/L (21-32); Glucose Level 89 mg/dL (74-106); Sodium Level 140 mmol/L (136-145)
[2018-10-10] MEDS: GABAPENTIN 300 MG CAP PO SCH ×2 (09:40→20:19)
[2018-10-10] MEDS: ENOXAPARIN 40 MG/0.4 ML SQ SCH (09:40)
[2018-10-10] MEDS: CLOPIDOGREL 75 MG TABLET PO SCH (09:40)
[2018-10-10] MEDS: LISINOPRIL 10 MG TAB PO SCH (09:41)
[2018-10-10] MEDS: ASPIRIN EC 81 MG TAB PO SCH (09:41)
--- NOTE | 2018-10-10 13:37 | PN ---
Date of Progress Note: 10/10/2018 Subjective: The patient seen and examined. Chart reviewed and case discussed with RN. No acute destiny nts overnight. The patient denies any complaints. The patient is sitting in bed without his gown in a diaper. When asked, the patient prefers to be that way. The patient's sitter was discontinued ye sterday. Family unable to be reached. Medications: List reviewed. Physical Examination: Vital Signs: Temperature 97.8, heart rate 93, blood pressure 160/96, respirations, O2 100% on room a ir. General: Awake, alert, and oriented x3. Elderly male, no acute distress. CV: S1, S2. Regular rate and rhythm. Peripheral pulses present. Respiratory: Moving air well bilaterally. No wheezing or stridor. Gastrointestinal: Abdomen is soft, nontender, nondistended. Positive bowel sounds. Extremities: No clubbing, cyanosis, or edema. Neuro: The patient has some weakness on the left. Laboratory Data: Sodium 140, potassium 4, chloride 106, CO2 27, BUN 16, creatinine 0.9, glucose 89, calcium 9.3. Assessment And Plan: A 68-year-old male with. 1.Acute ischemic stroke. Continue Plavix and statin. 2.Essential hypertension, stable. 3.Hyperlipidemia. Continue statin. 4.Generalized weakness, improving. The patient not really working with physical therapy. 5.Acute rhabdomyolysis, resolved. 6.Hypokalemia, corrected. 7.Legally blind. 8.Gastrointestinal and deep venous thrombosis prophylaxis addressed. Plan: Unfortunately, family is not responding. They have not filed paperwork with [facility]. [facility] for discharge remains to be discharged back to home with family. /AZ Voice ID: [id number] Report ID: [id number]
[2018-10-10] MEDS: ATORVASTATIN 20 MG TAB PO SCH (20:20)
[2018-10-11] MEDS: GABAPENTIN 300 MG CAP PO SCH ×2 (08:50→20:29)
[2018-10-11] MEDS: ENOXAPARIN 40 MG/0.4 ML SQ SCH (08:50)
[2018-10-11] MEDS: LISINOPRIL 10 MG TAB PO SCH (08:50)
[2018-10-11] MEDS: CLOPIDOGREL 75 MG TABLET PO SCH (08:50)
[2018-10-11] MEDS: ASPIRIN EC 81 MG TAB PO SCH (08:50)
[2018-10-11] MEDS: ATORVASTATIN 20 MG TAB PO SCH (20:28)
--- NOTE | 2018-10-12 07:22 | DS ---
Date of Discharge: 10/11/2018 Consultants: Dr. Machado with Neurology. Admitting Diagnoses: 1.Acute ischemic stroke. 2.History of previous stroke recently. 3.Essential hypertension. 4.Hyperlipidemia. 5.Generalized weakness. 6.Nontraumatic rhabdomyolysis, acute. Discharge Diagnoses: 1.Acute ischemic stroke, on Plavix and statin. The patient also has history of previous stroke rece ntly. 2.Essential hypertension. 3.Mixed hyperlipidemia, on statin. 4.Generalized weakness, improving. 5.Noncompliance. 6.Acute rhabdomyolysis, nontraumatic. 7.Hypokalemia, corrected. 8.Legally blind. Hospital Course: The patient is a 68-year-old male with a history of cerebrovascular accident with l eft-sided weakness, comes in with worsening symptoms of inability to move his left arm. The patient was admitted for acute cerebrovascular accident. He was unfortunately outside the time window for tP A. The patient unfortunately did not cooperate with further testing including MRI despite premedicat ions. 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 Carotid artery ultrasound showed mild calcific and noncalcified plaquing changes. No hemodynamically significant stenosis was identif ied. Left ICA/CCA ratio elevated, believed to be technical rather than true stenosis. The patient w as seen by Dr. Machado with Neurology, recommended aspirin and statin along with Plavix, Lovenox 40 mg for DVT prophylaxis, and permissive hypertension. He was evaluated by PT and OT. However, the pa tient was noncompliant and has not been following their instructions. The patient due to his crimina l background history of being sex offender, he had difficulty with placement. He was nonappropriate for inpatient rehab and therefore a jail facility placement was initiated. Due to his sta tus and background, he was not able to be accepted to local facilities; however, there was 1 facility in [facility], which had accepted the patient; however, family has not done the paperwork nor they are willing to take the patient to the facility. The patient spent the remainder of the hospital sta y awaiting SNF placement. However, as the family is not willing to cooperate with placement and fill ing out paperwork and providing transport of the patient, unfortunately patient will be transferred [facility] to his previous living situation with his cousin. Family has been notified. Social workers and case management involved in the discharge planning. Discharge Medications: As per medication reconciliation list. Followup: Follow up with primary care physician in 2-3 days. Follow up with neurologist, Dr. Chuy chou, in 2 weeks. Return to ER for worsening condition. Diet: Heart healthy. Activity: Fall precautions. Physical Examination: General: Awake, alert, oriented x3, in no acute distress, elderly male. CV: S1, S2. No murmurs. Respiratory: Moving air well bilaterally. Abdomen: Soft, nontender, nondistended. Positive bowel sounds. Extremities: No clubbing, cyanosis, or edema. Neurologic: Left-sided weakness. Time Spent: Total time spent discharging the patient was 35 minutes. /AZ Voice ID: [id number] Report ID: [id number]
[2018-10-12] MEDS: LISINOPRIL 10 MG TAB PO SCH (09:00)
[2018-10-12] MEDS: ASPIRIN EC 81 MG TAB PO SCH (09:00)
[2018-10-12] MEDS: CLOPIDOGREL 75 MG TABLET PO SCH (09:00)
[2018-10-12] MEDS: GABAPENTIN 300 MG CAP PO SCH ×2 (09:00→21:53)
[2018-10-12] MEDS: ENOXAPARIN 40 MG/0.4 ML SQ SCH (09:00)
--- NOTE | 2018-10-12 14:56 | P.PN ---
Subjective Date of Service: 10/12/18 Chief Complaint: Acute CVA Subjective: No new changes, No C/O voiced, Tolerating diet Patient seen and examined at bedside. No family at bedside. Chart reviewed and case discussed with nursing staff. No longer requiring a sitter Review of Systems As noted Physical Examination - Vital Signs Temperature: 98.8 F Blood Pressure: 142/92 Pulse: 89 Respirations: 18 Pulse Ox (%): 97 - Physical Exam General: Alert, In no apparent distress HEENT: Atraumatic, PERRLA, EOMI Neck: Supple, JVD not distended Respiratory: Clear to auscultation bilaterally, Normal air movement Cardiovascular: Regular rate/rhythm, Normal S1 S2 Gastrointestinal: Normal bowel sounds, No tenderness Musculoskeletal: No tenderness Integumentary: No rashes Neurological: Normal speech, Normal tone, Normal affect Lymphatics: No axilla or inguinal lymphadenopathy Assessment And Plan - Plan This is a 68-year-old male with: Acute ischemic stroke. Continue Plavix and statin. MRI unable to be done on admission secondary to agitation even after Ativan. Essential hypertension, stable. Hyperlipidemia. Continue statin. Generalized weakness, improving. The patient not really working with physical therapy. Acute rhabdomyolysis, resolved. Hypokalemia, corrected. Legally blind. DVT prophylaxis: Aspirin and Plavix GI prophylaxis: None Diet: Heart healthy Disposition: Medically stable. Pending placement; patient was previously living with brother, unsure of financial status, unable to get in touch with brother. workers' compensation magistrate has attempted multiple times to get hold of family for paperwork/sliding etc. Patient is Medicaid pending bed. Social work involved, trying to work on placement. Patient is not a safe discharge home. Physician Review: Patient Assessed, Agree with Above Assessment and Plan Time Spent Managing PTS Care (In Minutes): 35
[2018-10-12] MEDS: ATORVASTATIN 20 MG TAB PO SCH (21:53)
[2018-10-13] MEDS: HYDRALAZINE HCL 20 MG/ML VIAL IV PRN (00:01)
[2018-10-13] MEDS: ENOXAPARIN 40 MG/0.4 ML SQ SCH (09:33)
[2018-10-13] MEDS: CLOPIDOGREL 75 MG TABLET PO SCH (09:34)
[2018-10-13] MEDS: LISINOPRIL 10 MG TAB PO SCH (09:34)
[2018-10-13] MEDS: GABAPENTIN 300 MG CAP PO SCH ×2 (09:35→21:49)
[2018-10-13] MEDS: ASPIRIN EC 81 MG TAB PO SCH (09:42)
--- NOTE | 2018-10-13 12:42 | P.PN ---
Subjective Date of Service: 10/13/18 Chief Complaint: Acute CVA Subjective: No new changes, No C/O voiced Patient seen and examined at bedside. No family at bedside. Chart reviewed and case discussed with nursing staff. No longer requiring a sitter Review of Systems As noted Physical Examination - Vital Signs Temperature: 97.7 F Blood Pressure: 134/81 Pulse: 83 Respirations: 16 Pulse Ox (%): 98 - Physical Exam General: In no apparent distress, Confused HEENT: Atraumatic, PERRLA, EOMI Neck: Supple, JVD not distended Respiratory: Clear to auscultation bilaterally, Normal air movement Cardiovascular: Regular rate/rhythm, Normal S1 S2 Gastrointestinal: Normal bowel sounds, No tenderness Musculoskeletal: No tenderness Integumentary: No rashes Neurological: Normal speech, Normal tone, Normal affect Lymphatics: No axilla or inguinal lymphadenopathy Assessment And Plan - Plan This is a 68-year-old male with: Acute ischemic stroke. Continue Plavix and statin. MRI unable to be done on admission secondary to agitation even after Ativan. Essential hypertension, stable. Hyperlipidemia. Continue statin. Generalized weakness, improving. The patient not really working with physical therapy. Acute rhabdomyolysis, resolved. Hypokalemia, corrected. Legally blind. DVT prophylaxis: Aspirin and Plavix GI prophylaxis: None Diet: Heart healthy Disposition: Medically stable. Pending placement; patient was previously living with brother, unsure of financial status, unable to get in touch with brother. driver utility worker has attempted multiple times to get hold of family for paperwork/sliding etc. Patient is Medicaid pending bed. Social work involved, trying to work on placement. Patient is not a safe discharge home. Time Spent Managing PTS Care (In Minutes): 30
[2018-10-13] MEDS: ATORVASTATIN 20 MG TAB PO SCH (21:49)
[2018-10-14 04:05] LABS: Absolute Lymphocytes (CBC) 2.8 K/uL (0.7-4.9); Absolute Monocytes 0.7 K/uL (0.1-1.3); Absolute Neutrophil 5.8 K/uL (1.8-8.0); Basophils % 0.6 % (0-1.3); Eosinophils % 1.5 % (0-4.4); Hematocrit 47.6 % (39.6-49.0); Lymphocytes % 29.7 % (15.3-44.8); MCH 33.6 pg (27.0-35.0); MCV 95.7 fL (80-100); MPV 7.5 fL (7.6-11.3); Monocytes % 7.5 % (3.3-12.3); RBC Red Blood Cell Count 4.97 M/uL (4.33-5.43)
[2018-10-14 04:40] LABS: ALT/SGPT 47 U/L (12-78); AST/SGOT 30 U/L (15-37); Albumin 3.6 g/dL (3.4-5.0); Alkaline Phosphatase 75 U/L (45-117); BUN Blood Urea Nitrogen 15 mg/dL (7-18); Bicarbonate 25 mmol/L (21-32); Bilirubin Total 0.6 mg/dL (0.2-1.0); Glucose Level 91 mg/dL (74-106); Potassium 3.6 mmol/L (3.5-5.1); Protein, Total 7.4 g/dL (6.4-8.2); Sodium Level 138 mmol/L (136-145)
[2018-10-14 08:45] VITALS: O2SAT 97
[2018-10-14] MEDS ORDERED: POTASSIUM 25 MEQ EFFERV TAB PO ONE (09:00)
[2018-10-14] MEDS: ENOXAPARIN 40 MG/0.4 ML SQ SCH (10:07)
[2018-10-14] MEDS: ASPIRIN EC 81 MG TAB PO SCH (10:08)
[2018-10-14] MEDS: GABAPENTIN 300 MG CAP PO SCH (10:08)
[2018-10-14] MEDS: CLOPIDOGREL 75 MG TABLET PO SCH (10:09)
[2018-10-14] MEDS: LISINOPRIL 10 MG TAB PO SCH (10:09)
[2018-10-14 13:16] VITALS: BP 149/95; TEMP 98.1
--- NOTE | 2018-10-14 16:14 | P.DS ---
Admission Date: 09/29/18 Discharge Date: 10/14/18 Disposition: TRANSFER TO ASSISTED Discharge Condition: FAIR Reason for Admission: Acute CVA Consultations: Neurology, Dr. aguirre Hospital Course: The patient is a 68-year-old male with a history of cerebrovascular accident with left-sided weakness, comes in with worsening symptoms of inability to move his left arm. The patient was admitted for acute cerebrovascular accident. He was unfortunately outside the time window for tPA. The patient unfortunately did not cooperate with further testing including MRI despite premedications. 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 Carotid artery ultrasound showed mild calcific and noncalcified plaquing changes. No hemodynamically significant stenosis was identified. Left ICA/CCA ratio elevated, believed to be technical rather than true stenosis. The patient was seen by Dr. Aguirre with Neurology, recommended aspirin and statin along with Plavix, Lovenox 40 mg for DVT prophylaxis, and permissive hypertension. He was evaluated by PT and OT. However, the patient was noncompliant and has not been following their instructions. The patient due to his criminal background history of being sex offender, he had difficulty with placement. He was nonappropriate for inpatient rehab and therefore a long-term facility placement was initiated. Due to his status and background, he was not able to be accepted to local facilities; however, there was 1 facility in [facility], which had accepted the patient; however, family has not done the paperwork nor they are willing to take the patient to the facility. The patient spent the remainder of the hospital stay awaiting SNF placement. Placement at the other facility, patient care was initiated. Patient was accepted at [facility] and was transferred there. Vital Signs/Physical Exam: Temp Pulse Resp BP Pulse Ox 98.1 F 85 18 149/95 H 90 L 10/14/18 12:00 10/14/18 12:00 10/14/18 12:00 10/14/18 12:00 10/14/18 12:00 General: Alert, In no apparent distress HEENT: Atraumatic, PERRLA, EOMI Neck: Supple, JVD not distended Respiratory: Clear to auscultation bilaterally, Normal air movement Cardiovascular: Regular rate/rhythm, Normal S1 S2 Gastrointestinal: Normal bowel sounds, No tenderness Musculoskeletal: No tenderness Integumentary: No rashes Neurological: Abnormal strength, Abnormal tone Lymphatics: No axilla or inguinal lymphadenopathy Laboratory Data at Discharge: WBC 9.5 K/uL (4.3-10.9) 10/14/18 03:47 Hgb 16.7 g/dL (13.6-17.9) 10/14/18 03:47 Hct 47.6 % (39.6-49.0) 10/14/18 03:47 Plt Count 265 K/uL (152-406) D 10/14/18 03:47 PT 11.8 SECONDS (9.5-12.5) 09/29/18 19:11 INR 1.00 09/29/18 19:11 APTT 27.8 SECONDS (24.3-36.9) 09/29/18 19:11 Sodium 138 mmol/L (136-145) 10/14/18 03:47 Potassium 3.6 mmol/L (3.5-5.1) 10/14/18 03:47 BUN 15 mg/dL (7-18) 10/14/18 03:47 Creatinine 0.70 mg/dL (0.55-1.3) 10/14/18 03:47 Glucose 91 mg/dL (74-106) 10/14/18 03:47 Phosphorus 3.5 mg/dL (2.5-4.9) 09/30/18 05:34 Magnesium 2.1 mg/dL (1.8-2.4) 09/30/18 05:34 Total Bilirubin 0.6 mg/dL (0.2-1.0) 10/14/18 03:47 AST 30 U/L (15-37) 10/14/18 03:47 ALT 47 U/L (12-78) 10/14/18 03:47 Alkaline Phosphatase 75 U/L (45-117) 10/14/18 03:47 Troponin I < 0.02 ng/mL (0.0-0.045) 09/30/18 11:05 Triglycerides 107 mg/dL (<150) 09/30/18 05:34 Cholesterol 114 mg/dL (<200) 09/30/18 05:34 HDL Cholesterol 49 mg/dL (40-60) 09/30/18 05:34 Cholesterol/HDL Ratio 2.33 09/30/18 05:34 Home Medications: Lisinopril 10 mg PO DAILY 05/06/17 Aspirin [Aspirin EC 81 MG] 1 tab PO DAILY 02/23/18 Gabapentin [Gralise] 300 mg PO BID 02/23/18 Trazodone [Desyrel*] 50 mg PO BEDTIME PRN PRN 09/30/18 Atorvastatin Calcium [Lipitor] 80 mg PO BEDTIME #30 tablet 10/11/18 Clopidogrel Bisulfate [Plavix*] 75 mg PO DAILY #30 tablet 10/11/18 New Medications: Atorvastatin Calcium [Lipitor] 80 mg PO BEDTIME #30 tablet Clopidogrel Bisulfate [Plavix*] 75 mg PO DAILY #30 tablet Patient Discharge Instructions: Follow up with primary care physician in 2-3 days. Follow up with neurologist Dr. Aguirre in 2 weeks. Return to ER for worsening condition Diet: AHA Activity: Fall precautions Followup: Aidan Aguirre MD [ASSOCIATE-ACTIVE - CAN ADMIT] - Linden Landis DO, DO [ACTIVE - CAN ADMIT] - Physician Review: Patient Assessed, Agree with Above Assessment and Plan Time spent managing pt's care (in minutes): 55
== END 2018-10-14 13:21 | DRG 65 ==
LOC: ER 18:45 → 4TH 23:51
PROVIDERS: ADMIT Hospitalist; ATTEND Family Medicine
DX: I63.9 Cerebral infarction, unspecified (principal); I69.354 Hemiplegia and hemiparesis following cerebral infarction affecting left non-dominant side; M62.82 Rhabdomyolysis; I10 Essential (primary) hypertension; E78.2 Mixed hyperlipidemia; H54.8 Legal blindness, as defined in USA; E87.6 Hypokalemia; R53.1 Weakness
CPT/HCPCS: 36415; 70450; 70544; 71045; 71046; 80048; 80053; 80061; 82550; 82962; 83735; 84100; 84132; 84484; 85025; 85610; 85730; 92507; 92523; 93005; 93880; 97110; 97163; 97530; 99285; J0360; J1650; J7030